=== PATIENT | male | born 1970 | race Caucasian/White ===

== ENCOUNTER → 2020-06-26 07:46 | Outpatient (BNVA) | payer SELFPAY | PROVIDERS: PCP Family Medicine; Visit Provider Internal Medicine | DX: Z02.79 Encounter for issue of other medical certificate (principal) ==

== ENCOUNTER 2021-01-03 20:06 | Emergency (ER) | payer BC, SELFPAY ==
--- NOTE | ~2021-01-03 | CT_ITS ---
EXAMINATION: CT CHEST WITHOUT CONTRAST CLINICAL INFORMATION: Pain. Right-sided ninth rib fracture suspected. COMPARISON: Radiograph 01/03/2021 TECHNIQUE: Multidetector volumetric CT imaging of the chest was done. Axial MIP volume rendering provided. Sagittal and coronal reformatted images were obtained. This CT examination was performed using dose optimization techniques as appropriate, variously including the following: *Automated exposure control *Adjustment of mA and/or kV according to patient size (this includes techniques or standardized protocols for targeted exams where dose is matched to indication/reason for exam; i.e. 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 LUNGS: The central airways are patent. The lungs are clear with no evidence of inflammation or nodules. Fissural lymph node measures 0.9 cm along the right minor fissure on series 5 image 324. No pneumothorax. MEDIASTINUM: Normal heart size. No pericardial effusion. No mediastinal lymphadenopathy. PLEURA: There is no pleural effusion. No pleural mass or thickening. AXILLA: No lymphadenopathy. UPPER ABDOMEN: Unremarkable. OSSEOUS STRUCTURES: There is a nondisplaced posterior lateral right ninth rib fracture. No additional fractures are seen. Vertebral body height and alignment maintained. Small endplate osteophytes noted. CT/CT chest wo IV con IMPRESSION: Nondisplaced posterior lateral right ninth rib fracture.
--- NOTE | ~2021-01-03 | XR_ITS ---
EXAMINATION: XR RIBS, RIGHT CLINICAL INFORMATION: Pain, fall, bruising COMPARISON: 01/11/2018 TECHNIQUE: Single view of the chest and 6 images of the right ribs FINDINGS: Chest film shows no pneumothorax or effusion. Lung weaver are felt to be comparable to previous. Detailed rib films demonstrate mild step-off involving the ninth rib. A fracture would need to be considered. XR/XR ribs RT min 3V w CXR1V IMPRESSION: Step-off involving the right ninth rib on one view only. Fracture needs to be considered on the right here. Otherwise no pneumothorax or effusion in the underlying lung.
[2021-01-03 20:18] VITALS: BP 127/86; PULSE 72; RESP 16; TEMP 36.7; O2SAT 98; BMI 31.6
--- NOTE | 2021-01-03 23:14 | ED.FALL ---
HPI - Fall General Chief Complaint: Fall Stated Complaint: rib inj Time Seen by Provider: 01/03/21 22:54 Source: patient Mode of arrival: ambulatory History of Present Illness HPI Narrative: 50-year-old male presents with complaints of a fall approximately 2 weeks ago where he states he fell backwards without striking his head and went down approximately 7 stairs. He denies any associated loss of consciousness at that time but states that he was coughing earlier today and felt a ?pop on his right side?. He denies any shortness of breath but is having pain over the area of the ?pop? and states that he is also having extensive bruising over his left flank. Related Data Allergies Allergy/AdvReac Type Severity Reaction Status Date / Time No Known Allergies Allergy Verified 01/03/21 20:21 [No Known Allergies*] Review of Systems Review of Systems: Pertinent positives and negatives as stated in HPI 10 point review of systems otherwise negative. [facility] Past Medical History Source: nursing notes reviewed Medical History HTN (hypertension) Pre-diabetes Social History Social History Advance Directives: No Physical Exam Vital Signs: Vital Signs: Last Vital Signs Temp 98.0 F 01/03/21 20:18 Pulse 72 01/03/21 20:18 Resp 16 01/03/21 20:18 BP 127/86 01/03/21 20:18 Pulse Ox 98 01/03/21 20:18 Body Mass Index 31.6 VITAL SIGNS: Reviewed. GENERAL: Well developed, well nourished, in no acute distress. HEAD: Normocephalic/atraumatic, EYES: PERRLA, EOMI LUNGS: Normal breath sounds. No adventitious sounds or accessory muscle use. SpO2<98> right posterior chest wall tenderness without crepitus CARDIOVASCULAR: Regular rate and rhythm without noted murmurs ABDOMEN: Soft, non-tender, non-distended with bowel sounds. RIGHT FLANK: Healing bruising noted distributed along the right iliac crest in various stages of healing SKIN: Inspection of the skin reveals no rashes, ulcerations, jaundice, pallor, or petechiae. NEUROLOGIC: Alert and oriented x 4. Strength and sensation to light touch were grossly intact x 4. Course Course Course Narrative: 50-year-old male with history and clinical presentation consistent with a fall 2 weeks ago and on review of all investigations there are no acute findings other than a nondisplaced posterior lateral right 9th rib fracture. Patient was provided with combination analgesics and a lidocaine patch which on re-evaluation patient states he has had good resolution of his pain is otherwise stable for discharge to home with an incentive spirometer. MDM - Fall Lab Data Result diagrams: 01/03/21 23:41 01/03/21 23:41 Labs: Lab Results 01/03/21 01/03/21 Range/Units 23:41 23:41 WBC 7.7 (4.8-10.8) X10*3/uL RBC 4.67 (4.60-5.80) X10*6/uL Hgb 14.2 (14.0-18.0) g/dl Hct 42.2 (42-52) % MCV 90.4 (80-98) fL MCH 30.4 (27.0-33.0) pg MCHC 33.6 (31.0-36.0) g/dl RDW 13.2 (11.0-16.0) % Plt Count 223 (160-400) X10*3/uL MPV 8.9 L (9.4-12.4) fL Immature Gran % (Auto) 0.1 (0.0-0.4) % Neut % (Auto) 48.3 (45-73) % Lymph % (Auto) 37.5 (20-40) % [place] % (Auto) 11.6 H (2-11) % Eos % (Auto) 1.6 (0-4) % Baso % (Auto) 0.9 (0-2) % Lymph # (Auto) 2.9 (1.2-4.9) X10*3/uL [place] # (Auto) 0.9 (0.1-1.2) X10*3/uL Eos # (Auto) 0.1 (0.0-0.4) X10*3/uL Baso # (Auto) 0.1 (0.0-0.2) X10*3/uL Abs Immat Gran (auto) 0.01 (0.00-0.03) X10*3/uL Absolute Neuts (auto) 3.7 (2.0-8.3) X10*3/uL Absolute Nucleated RBC 0.000 (0.0-0.012) X10*3/uL Nucleated RBC % (auto) 0.0 (0.0-0.2) /100WBC Sodium 139 (135-145) mmol/L Potassium 4.6 (3.3-5.1) mmol/L Chloride 103 (96-108) mmol/L Carbon Dioxide 27 (22-29) mmol/L Anion Gap 14 (12-20) BUN 13 (9-16) mg/dL Creatinine 1.11 (0.5-1.4) mg/dL Estim Creat Clear Calc 100.7 Estimated GFR > 60 Random Glucose 126 H (60-115) mg/dL Calcium 9.6 (8.4-10.2) mg/dL Total Bilirubin 0.5 (0.0-1.0) mg/dL AST 27 (5-37) U/L ALT 31 (0-40) U/L Alkaline Phosphatase 71 (39-117) U/L Total Protein 7.5 (6.5-8.0) g/dL Albumin 4.5 (3.5-5.0) g/dL Discharge Plan Discharge Clinical Impression: Closed rib fracture Patient Disposition: Home, Self-Care Instructions: Rib Fracture (ED), How to Use an Incentive Spirometer (ED) Additional Instructions: 1. Tylenol 1000 mg, orally, every 6 hours as needed for pain control. Do not exceed 4000 mg within 24 hours. 2. Ibuprofen 400 mg, orally with milk or food, every 6 hours as needed for pain control. 3. Lidocaine patch, available [id number], apply to area of maximal tenderness as directed on the outside packaging. 4. Please follow-up with your primary care provider in the next 2-3 days for re-evaluation further outpatient management. Return to the ER for acute worsening of symptoms. Referrals: Irena Alcantar MD [Primary Care Provider] - 2 days (Re-evaluation for right 9th rib fracture.)
[2021-01-03] MEDS: Acetaminophen 325 MG TABLET 975 MG PO (23:31)
[2021-01-03] MEDS: Lidocaine 4 % Patch ADH..PATCH 1 PATCH TRANSDERMA (23:33)
[2021-01-03] MEDS: Ketorolac Tromethamine 15 MG/ML VIAL IM (23:34)
[2021-01-03 23:45] LABS: MANUAL DIFF FLAG NO
[2021-01-03 23:46] LABS: Basophils Absolute Auto 0.1 X10*3/uL (0.0-0.2); Basophils Percent Auto 0.9 % (0-2); Eosinophils Absolute Auto 0.1 X10*3/uL (0.0-0.4); Eosinophils Percent Auto 1.6 % (0-4); Hematocrit 42.2 % (42-52); Hemoglobin 14.2 g/dl (14.0-18.0); Imm Gran Abs Auto 0.01 X10*3/uL (0.00-0.03); Imm Gran Pct Auto 0.1 % (0.0-0.4); Lymphocytes Absolute Auto 2.9 X10*3/uL (1.2-4.9); Lymphocytes Percent Auto 37.5 % (20-40); Mean Corpuscular HGB Conc 33.6 g/dl (31.0-36.0); Mean Corpuscular Hemoglobin 30.4 pg (27.0-33.0); Mean Corpuscular Volume 90.4 fL (80-98); Mean Platelet Volume 8.9 fL (9.4-12.4); Monocytes Absolute Auto 0.9 X10*3/uL (0.1-1.2); Monocytes Percent Auto 11.6 % (2-11); Neutrophils Absolute Auto 3.7 X10*3/uL (2.0-8.3); Neutrophils Percent Auto 48.3 % (45-73); Platelet Count 223 X10*3/uL (160-400); Red Blood Count 4.67 X10*6/uL (4.60-5.80); Red Cell Distribution Width 13.2 % (11.0-16.0); White Blood Count 7.7 X10*3/uL (4.8-10.8)
[2021-01-04 00:17] LABS: Alanine Aminotransferase 31 U/L (0-40); Albumin Level 4.5 g/dL (3.5-5.0); Alkaline Phosphatase 71 U/L (39-117); Anion Gap 14 (12-20); Aspartate Amino Transferase 27 U/L (5-37); Bilirubin Total 0.5 mg/dL (0.0-1.0); Blood Urea Nitrogen 13 mg/dL (9-16); Calcium 9.6 mg/dL (8.4-10.2); Carbon Dioxide 27 mmol/L (22-29); Chloride 103 mmol/L (96-108); Creatinine Clr Calc Pharmacy 100.7; Estimated Glomerular Filt Rate > 60; Glucose Random 126 mg/dL (60-115); Potassium 4.6 mmol/L (3.3-5.1); Sodium 139 mmol/L (135-145); Total Protein 7.5 g/dL (6.5-8.0)
== END 2021-01-04 02:12 | disposition home or self-care (01) ==
PROVIDERS: Emergency Provider Student in an Organized Health Care Education/Training Program; PCP Family Medicine
DX: S30.1XXA Contusion of abdominal wall, initial encounter (principal); S22.31XA Fracture of one rib, right side, initial encounter for closed fracture; I10 Essential (primary) hypertension; W10.8XXA Fall (on) (from) other stairs and steps, initial encounter; Y93.9 Activity, unspecified; Y92.9 Unspecified place or not applicable; Y99.9 Unspecified external cause status
CPT/HCPCS: 36415; 71101; 71250; 80053; 85025; 96372; 99283; 99284; J1885

== ENCOUNTER → 2021-06-19 08:52 | Outpatient (BNVA) | payer SELFPAY | PROVIDERS: PCP Family Medicine; Visit Provider Physician Assistant | DX: Z02.79 Encounter for issue of other medical certificate (principal) ==

== ENCOUNTER 2022-01-08 16:01 | Outpatient (REF) | payer BC, SELFPAY ==
--- NOTE | ~2022-01-08 | CT_ITS ---
EXAMINATION: CT HEAD WITHOUT CONTRAST CLINICAL INFORMATION: Headaches COMPARISON: None TECHNIQUE: Contiguous axial imaging was performed from the skull base to vertex without intravenous administration of contrast. This CT examination was performed using dose optimization techniques as appropriate, variously including the following: *Automated exposure control *Adjustment of mA and/or kV according to patient size (this includes techniques or standardized protocols for targeted exams where dose is matched to indication/reason for exam; i.e. extremities or head) *Use of iterative reconstruction technique DLP: 812 mGy-cm FINDINGS: There is no evidence of acute intracranial hemorrhage or territorial infarction. No abnormal mass effect or midline shift is seen. [place] to white matter differentiation is well preserved. No extra-axial fluid collections are identified. The ventricles are normal in size. There is no abnormal attenuation within the brain parenchyma. The osseous structures and soft tissues are normal. The mastoid air cells and visualized portions of the paranasal sinuses are well aerated. CT/CT head/brain wo IV con IMPRESSION: No acute intracranial process seen.
== END 2022-01-08 16:02 | disposition home or self-care (01) ==
LOC: HO.CT 16:01
PROVIDERS: PCP Family Medicine; Visit Provider Family Medicine
DX: G44.82 Headache associated with sexual activity (principal)
CPT/HCPCS: 70450

== ENCOUNTER 2023-03-26 03:36 | Emergency (ER) | payer MEDICAID, SELFPAY ==
[2023-03-26 03:48] VITALS: BP 200/100; PULSE 103; O2SAT 98; BMI 29.0
[2023-03-26 04:10] VITALS: BP 196/99; PULSE 95; RESP 20; TEMP 37; O2SAT 97
--- NOTE | 2023-03-26 04:10 | PC.NURSE ---
pt cooperative w/ care however refusing all lab draws.
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
--- NOTE | 2023-03-26 06:26 | PC.NURSE ---
pt resting comfortable in stretcher; resps are even and unlabored; no apparent distress; calm and cooperative; continues to refuse all lab draws. rpts does not take any more prescription meds or allow for medical treatment since his earlier this year.
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
[2023-03-26 06:32] VITALS: BP 169/105; PULSE 86; RESP 18; TEMP 36.5; O2SAT 98
--- NOTE | 2023-03-26 06:38 | MHC.EDTECH ---
This tech attempted to draw labs, patient is refusing stated I do not get my blood taken its my right Provider Carly at bedside and patient still refusing. RN Morales made aware. Hourly rounds and vitals completed,BP is elevated 169/105,RN made aware. 1-1 sitter at bedside for safety.
--- NOTE | 2023-03-26 08:00 | PC.NURSE ---
pt verbalized to MD that he will allow staff to draw his blood at this time. PCT lit at bedside to attempt blood draw
[2023-03-26 08:14] LABS: Basophils Percent Auto 0.4 % (0-2); Eosinophils Percent Auto 0.3 % (0-4); Hematocrit 39.8 % (42.0-52.0); Hemoglobin 13.8 g/dl (14.0-18.0); Imm Gran Abs Auto 0.04 X10*3/uL (0.00-0.03); Imm Gran Pct Auto 0.4 % (0.0-0.4); Lymphocytes Absolute Auto 1.5 X10*3/uL (1.2-4.9); Lymphocytes Percent Auto 13.5 % (20-40); MANUAL DIFF FLAG NO; Mean Corpuscular HGB Conc 34.7 g/dl (31.0-36.0); Mean Corpuscular Hemoglobin 29.2 pg (27.0-33.0); Mean Corpuscular Volume 84.3 fL (80.0-98.0); Mean Platelet Volume 9.3 fL (9.4-12.4); Monocytes Percent Auto 9.6 % (2-11); Neutrophils Absolute Auto 8.2 x10*3/uL (2.0-8.3); Neutrophils Percent Auto 75.8 % (45-73); Platelet Count 266 X10*3/uL (160-400); Red Blood Count 4.72 X10*6/uL (4.60-5.80); Red Cell Distribution Width 13.2 % (11.0-16.0); White Blood Count 10.8 X10*3/uL (4.8-10.8)
[2023-03-26 08:21] LABS: Amphetamine Screen Urine Not Detected (Not Detect); Barbiturates, Urine Not Detected (Not Detect); Benzodiazepines Screen Urine Not Detected (Not Detect); Cannabinoid Screen Urine POSITIVE (Not Detect); Cocaine Screen Urine POSITIVE (Not Detect); Fentanyl, urine Not Detected (Not Detect); Opiate Screen Urine Not Detected (Not Detect); Phencyclidine Screen Urine Not Detected (Not Detect)
[2023-03-26 08:25] LABS: Ethanol < 10 mg/dL
[2023-03-26 08:27] LABS: Alanine Aminotransferase 22 U/L (0-40); Albumin Level 4.3 g/dL (3.5-5.0); Alkaline Phosphatase 104 U/L (39-117); Anion Gap 16 (12-20); Aspartate Amino Transferase 35 U/L (5-37); Bilirubin Total 1.5 mg/dL (0.0-1.0); Blood Urea Nitrogen 7 mg/dL (9-16); Calcium 9.6 mg/dL (8.4-10.2); Carbon Dioxide 30 mmol/L (22-29); Chloride 92 mmol/L (96-108); Creatinine Clr Calc Pharmacy 129.5; Estimated Glomerular Filt Rate > 60; Glucose Random 216 mg/dL (60-115); Potassium 2.7 mmol/L (3.3-5.1); Sodium 135 mmol/L (135-145); Total Protein 7.8 g/dL (6.5-8.0)
[2023-03-26 09:53] VITALS: BP 203/119; PULSE 101; RESP 14; O2SAT 99
--- NOTE | 2023-03-26 10:05 | PC.NURSE ---
CARE team at bedside to assess pt
--- NOTE | 2023-03-26 10:10 | MHC.CARE ---
patient denies SI/ HI, appears linear/ goal directed. Patient assessed, does not appear to meet involuntary inpatient LOC. He is requesting referrals, which he is given. Recovery will be down to check in w/ patient about a manager disaster recovery and then patient can be discharged.
--- NOTE | 2023-03-26 10:49 | MHC.RECOVSUP ---
Met with pt in ED10 who is here for psychiatric needs per the request of the care team for resources. Pt informs he used cocaine for the first time in years and woul be open to working with a motor coach supervisor. Resources provided and pt had no other questions or concerns at this time.
== END 2023-03-26 10:50 | disposition left against medical advice (07) ==
PROVIDERS: Registered Nurse Emergency; Emergency Provider Emergency Medicine
DX: F33.1 Major depressive disorder, recurrent, moderate (principal); R45.850 Homicidal ideations; R45.4 Irritability and anger; Z79.899 Other long term (current) drug therapy
CPT/HCPCS: 36415; 80053; 80307; 85025; 99284; 99285; S9485

== ENCOUNTER 2023-03-27 14:12 | Inpatient (IN) | payer MEDICAID, SELFPAY ==
[2023-03-27] VITALS (7 sets, daily range): BP systolic 145–228; BP diastolic 74–145; PULSE 77–96; RESP 15–20; TEMP 36.1–36.8; O2SAT 94–98; BMI 27.0
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
--- NOTE | 2023-03-27 14:33 | ECG_ITS ---
Test Reason : HYPERTENSION Blood Pressure : / mmHG Vent. Rate : 088 BPM Atrial Rate : 088 BPM P-R Int : 142 ms QRS Dur : 098 ms QT Int : 438 ms P-R-T Axes : 010 072 039 degrees QTc Int : 529 ms Normal sinus rhythm RSR' or QR pattern in V1 suggests right ventricular conduction delay Otherwise normal ECG No previous ECGs available Referred By: Staci Ling Electronically Signed By:MARYSOL NASH MD
[2023-03-27] MEDS: Losartan Potassium 50 MG TABLET PO (15:11)
[2023-03-27] MEDS: ondansetron HCL 4 MG/2 ML VIAL IVPUSH (15:11)
[2023-03-27] MEDS: LORazepam 2 MG/ML VIAL IVPUSH (15:11)
[2023-03-27] MEDS: 0.9 % Sodium Chloride 1,000 ML 999 ML IV (15:14)
[2023-03-27 15:38] LABS: Basophils Percent Auto 0.4 % (0-2); Eosinophils Absolute Auto 0.1 X10*3/uL (0.0-0.4); Eosinophils Percent Auto 0.9 % (0-4); Hematocrit 39.9 % (42.0-52.0); Imm Gran Abs Auto 0.03 X10*3/uL (0.00-0.03); Imm Gran Pct Auto 0.4 % (0.0-0.4); Lymphocytes Percent Auto 12.9 % (20-40); MANUAL DIFF FLAG SCAN; Mean Corpuscular HGB Conc 35.1 g/dl (31.0-36.0); Mean Corpuscular Hemoglobin 29.6 pg (27.0-33.0); Mean Corpuscular Volume 84.4 fL (80.0-98.0); Mean Platelet Volume 10.1 fL (9.4-12.4); Monocytes Absolute Auto 0.6 X10*3/uL (0.1-1.2); Neutrophils Absolute Auto 6.1 x10*3/uL (2.0-8.3); Neutrophils Percent Auto 77.4 % (45-73); PLT CLUMP 1; Red Blood Count 4.73 X10*6/uL (4.60-5.80); Red Cell Distribution Width 13.1 % (11.0-16.0); SCAN SMEAR FLAG 1
[2023-03-27 16:04] LABS: COVID-19 Test Negative (Negative); IDNOW Serial# BCCEAD1C
[2023-03-27 16:10] LABS: Platelet Count 248 X10*3/uL (160-400); SLIDE REVIEW VERIFIED; White Blood Count 7.8 X10*3/uL (4.8-10.8)
[2023-03-27 16:21] LABS: Alanine Aminotransferase 35 U/L (0-40); Albumin Level 3.7 g/dL (3.5-5.0); Alkaline Phosphatase 84 U/L (39-117); Anion Gap 14 (12-20); Aspartate Amino Transferase 77 U/L (5-37); Bilirubin Direct 0.5 mg/dL (0.0-0.5); Bilirubin Total 1.1 mg/dL (0.0-1.0); Blood Urea Nitrogen 11 mg/dL (9-16); Calcium 8.6 mg/dL (8.4-10.2); Carbon Dioxide 27 mmol/L (22-29); Chloride 93 mmol/L (96-108); Estimated Glomerular Filt Rate > 60; Ethanol < 10 mg/dL; Glucose Random 248 mg/dL (60-115); Magnesium 1.7 mg/dL (1.6-2.6); Potassium 2.4 mmol/L (3.3-5.1); Sodium 132 mmol/L (135-145); Total Protein 6.6 g/dL (6.5-8.0)
[2023-03-27] MEDS: Potassium Chloride Packet 20 MEQ PACKET 40 MEQ PO (16:44)
[2023-03-27] MEDS: Potassium Chloride/H20 10 MEQ/100 ML PIGGYBACK 100 MEQ IV ×4 (16:50→20:40)
[2023-03-27 17:25] LABS: Amphetamine Screen Urine Not Detected (Not Detect); Barbiturates, Urine Not Detected (Not Detect); Benzodiazepines Screen Urine Not Detected (Not Detect); Cannabinoid Screen Urine POSITIVE (Not Detect); Cocaine Screen Urine POSITIVE (Not Detect); Fentanyl, urine Not Detected (Not Detect); Opiate Screen Urine Not Detected (Not Detect); Phencyclidine Screen Urine Not Detected (Not Detect)
[2023-03-27] MEDS: LORazepam 1 MG TABLET 2 MG PO (17:28)
[2023-03-27] MEDS: HaloperidoL 5 MG TABLET PO (17:28)
--- NOTE | 2023-03-27 17:32 | PC.NURSE ---
Moreno (video surveillance technician) states patient is hallucinating.
--- NOTE | 2023-03-27 18:48 | MHC.EDTECH ---
This Tech took over care of PT at 1900
--- NOTE | 2023-03-27 21:12 | PC.NURSE ---
per dr higgins awaiting final bag of iv potassium to infuse. once infused repeat bloodwork
[2023-03-27] MEDS: Potassium Chloride Packet 20 MEQ PACKET 80 MEQ PO (23:39)
[2023-03-28 00:03] VITALS: BP 180/110; PULSE 84; RESP 20; O2SAT 98
--- NOTE | 2023-03-28 00:22 | PC.NURSE ---
[facility] made this rn aware of bp of 180/110. this rn made dr higgins aware of bp. no new orders placed
[2023-03-28 00:42] LABS: Potassium 3.2 mmol/L (3.3-5.1)
[2023-03-28] MEDS: Propranolol HCL 40 MG TABLET PO ×3 (01:15→14:04)
--- NOTE | 2023-03-28 05:47 | PC.NURSE ---
Patient slept through the night, no distress observed/reported, patient appears confused/requires redirection at time, med rec completed/approved/ medication compliant, propranolol 40 mg administered at 0115, care consult ordered for paranoia, pending evaluation, patient is hypertensive and off his medication for months, behavior non concerning, labs completed/resulted, will continue to monitor
--- NOTE | 2023-03-28 06:53 | PC.NURSE ---
patient appears to remain asleep respirations are even and unlabored patient appears in no distress
[2023-03-28 09:00] VITALS: BP 165/110; PULSE 78; RESP 18; TEMP 36.7; O2SAT 98
[2023-03-28] MEDS: VerapamiL HCL SR 240 MG TABLET.ER PO (09:01)
--- NOTE | 2023-03-28 10:24 | PC.NURSE ---
sammie black friend [phone]
--- NOTE | 2023-03-28 16:15 | P.CONHOSP_ITS ---
History of Present Illness Data of Consult Service Date: 03/28/23 Primary Care Provider: None Physician HPI Reason for consult: Admission H&P Pt is a 53-year-old male with a PMH significant for? who is admitted to psychiatry unit for . Medical consult for admission H&P. ? Labs reviewed, significant for [facility] Medical History Pre-diabetes HTN (hypertension) Social History Alcohol intake: never Smoked in Last 30 Days: No Use of substances other than those prescribed or required for medical reasons: Yes Substance Use Type: Crack/Cocaine and Marijuana Advance Directives: No Advance Directives Information Provided: No Meds Allergies Allergy/AdvReac Type Severity Reaction Status Date / Time No Known Allergies Allergy Verified 03/26/23 03:52 Active Medications: Current Medications Acetaminophen (Acetaminophen 325 Mg Tablet) 650 mg PO Q6H PRN PRN Reason: Headache/Pain Mild Scale (1-3) Al Hydroxide/Mg Hydroxide (Magnesium Hydrox/Alum Hydrox 30 Ml Oral.Susp) 30 ml PO Q6H PRN PRN Reason: Heartburn/Nausea Hydroxyzine HCl (Hydroxyzine Hcl 25 Mg Tablet) 25 mg PO Q6H PRN PRN Reason: Anxiety Magnesium Hydroxide (Milk Of Magnesia 30 Ml Oral.Susp) 30 ml PO DAILY PRN PRN Reason: Constipation Propranolol HCl (Propranolol Hcl 40 Mg Tablet) 40 mg PO TID [facility]; Protocol Last Admin: 03/28/23 14:04 Dose: 40 mg Trazodone HCl (Trazodone Hcl 50 Mg Tablet) 50 mg PO BEDTIME MRX1 PRN PRN Reason: Insomnia Verapamil HCl (Verapamil Hcl Sr 240 Mg Tablet.Er) 240 mg PO DAILY [facility]; Protocol Last Admin: 03/28/23 09:01 Dose: 240 mg Home Medications Medication Instructions Recorded Confirmed Last Taken Type propranolol 40 mg tablet 40 mg PO TID 03/27/23 03/27/23 Unknown History verapamil 240 mg tablet,extended 240 mg PO DAILY 03/27/23 03/27/23 Unknown History release Physical Exam 2 Vital Signs and Narrative: Vital Signs: Last Vital Signs Temp 98.1 F 03/28/23 09:00 Pulse 78 03/28/23 09:00 Resp 18 03/28/23 09:00 BP 165/110 H 03/28/23 09:00 Pulse Ox 98 03/28/23 09:00 O2 Del Method Room Air 03/28/23 09:00 BMI result Body Mass Index 27.0 Results Labs 03/27/23 15:22 03/28/23 00:24 Labs: Laboratory Results - last 24 hr 03/27/23 03/27/23 15:53 17:04 Anion Gap 14 Estim Creat Clear Calc 126.0 Estimated GFR > 60 Random Glucose 248 H Calcium 8.6 D Magnesium 1.7 Total Bilirubin 1.1 H Direct Bilirubin 0.5 AST 77 H ALT 35 Alkaline Phosphatase 84 Total Protein 6.6 Albumin 3.7 Urine Opiates Screen Not Detected Urine Fentanyl Screen Not Detected Ur Barbiturates Screen Not Detected Ur Phencyclidine Scrn Not Detected Ur Amphetamines Screen Not Detected U Benzodiazepines Scrn Not Detected Urine Cocaine Screen POSITIVE H U Marijuana (THC) Screen POSITIVE H Ethyl Alcohol < 10
[2023-03-28 18:00] VITALS: BP 132/87; PULSE 67; TEMP 36.8; O2SAT 96
--- NOTE | 2023-03-29 01:04 | PC.ADMIT ---
Patient is a 49 year old Czech speaking male, admitted as a CV admission to 03/28/23 at 1605 and placed on 15 minute safety checkecks. Patient was medically cleared in the [facility] ED, after his low potassium was treated, evaluated by the CARE team and deemed in need of IPLOC secondary to passive SI, as well as poor insight, judgment and coping. Patient's 6 months ago and he also reported other deaths of family and friends that has affected him. Patient was fairly cooperative during the admission process, but was limited in his information regarding his substance (cocaine) use. Patient said he feels overwhelmed when he is at home and misses his a great deal. Patient presents as hopeless and said he is upset with [facility] d/t not diagnosing his 's cancer in time for her to be treated. Patient denied any current SI. Legals were signed, patient said he was very tired and went to bed. He has no prior psychiatric hospitalizations. Patient said he does not have a current PCP and no therapist. He said he sees a Dr. Rivera (unknown last name) through [facility] and said He's a psychologist, but he prescribes my medications.. Patient also said he does not have any medical insurance and doesn't know why [employer] is listed. Patient said he was very tired and went to sleep without taking his HS medication.
[2023-03-29 07:50] VITALS: BP 199/135; PULSE 79; RESP 18; TEMP 36.2; O2SAT 96
[2023-03-29 08:18] LABS: Alanine Aminotransferase 27 U/L (0-40); Albumin Level 3.8 g/dL (3.5-5.0); Alkaline Phosphatase 87 U/L (39-117); Anion Gap 12 (12-20); Aspartate Amino Transferase 28 U/L (5-37); Bilirubin Total 0.6 mg/dL (0.0-1.0); Blood Urea Nitrogen 11 mg/dL (9-16); Calcium 9.5 mg/dL (8.4-10.2); Carbon Dioxide 30 mmol/L (22-29); Chloride 101 mmol/L (96-108); Cholesterol 156 mg/dL (<200); Creatinine Clr Calc Pharmacy 105.4; Estimated Glomerular Filt Rate > 60; Glucose Fasting 208 mg/dL (60-99); HDL Cholesterol 46 mg/dL (>40); LDL Cholesterol Calculated 89 mg/dL (<100); Potassium 3.6 mmol/L (3.3-5.1); Sodium 139 mmol/L (135-145); Total Protein 7.2 g/dL (6.5-8.0); Triglycerides 106 mg/dL (<150)
--- NOTE | 2023-03-29 08:37 | HO.PSYADMNOT ---
HPI Date of Service: 03/29/23 Chief Complaint: Depression Sources of Information: patient interviewed and chart reviewed HPI Subjective Notes: Conditional Voluntary Healthcare Proxy: No Guardianship: No Medical Problems Affecting Mental Status: No Narrative: 53 year old man who had been doing well until his wfe's in July. Since that time he has been struggling to function. 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 That has been doing well but he continued to struggle with grief. He reports 60 lb weight loss. in the last 6 months. About 6 weeks ago, he relapsed on crack cocaine which he had not used in decades. Since the relapse, he has had increasing sleep disturbance and prior to admission states that he had not slept in 4-5 nights. He was fearful of going out because he was afraid he might get out of control and hurt someone. 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 He was Section 12'd to the emergency room on 03/26 after breaking his living room window and yelling at people. At that time he was denying drug use. He was found to be hyponatremic but refused repletion. He was discharged against medical advice but returned yesterday at the urging of his step-brother. Potassium was repleted and he was admitted on a CV. Past Psychiatric History: Denies suicide attempts, prior admissions, prior psychosis or luz. Had outpatient therapy in past which was helpful. Reports unknown antidepressant trial Medical Evaluation Reviewed: Hospitalist Evaristo Pending Need to make sure that hypokalemia resolves, etiology unknown. BP quite elevated today. Does not have a current PCP. States he now does not trust his PCP because this was the same provider who missed his 's cancer. [facility] Medical History (Updated 03/29/23 @ 09:14 by Marce Caceres MD) Pre-diabetes HTN (hypertension) Family History: none known Social History: Denies abuse or trauma. 9th grade education with GED. 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 One sister who is much younger and step-brother. Has one step-son. Does not get along well with 's family because they all want their grandfather's money. Caregiving for father-in -law. Prior history of A and B back when he was drinking. No recent legal history. Substance History: Alcohol use disorder but not in 20 years. Used AA, no rehab, was in detox. Cocaine addiction over 30 years ago with recent relapse. Used muscle relaxants back when he was drinking. Occasionally uses marijuana Trauma History: of cancer in July about a month after cancer diagnosis. Diagnostics Vital Signs (24Hr): Vital Signs - 24 hr 03/28/23 18:00 03/29/23 07:50 Temperature 98.3 F 97.1 F Pulse Rate 67 79 Respiratory Rate 18 Blood Pressure 132/87 199/135 H Pulse Oximetry 96 96 Oxygen Delivery Method Room Air Room Air BMI result Body Mass Index 27.0 Labs 03/27/23 15:22 03/29/23 07:39 Labs: Laboratory Results - last 48 hr 03/27/23 03/27/23 03/27/23 15:22 15:53 17:04 WBC 7.8 RBC 4.73 Hgb 14.0 Hct 39.9 L MCV 84.4 MCH 29.6 MCHC 35.1 RDW 13.1 Plt Count 248 MPV 10.1 Immature Gran % (Auto) 0.4 Neut % (Auto) 77.4 H Lymph % (Auto) 12.9 L [place] % (Auto) 8.0 Eos % (Auto) 0.9 Baso % (Auto) 0.4 Lymph # (Auto) 1.0 L [place] # (Auto) 0.6 Eos # (Auto) 0.1 Baso # (Auto) 0.0 Abs Immat Gran (auto) 0.03 Absolute Neuts (auto) 6.1 Absolute Nucleated RBC 0.000 Nucleated RBC % (auto) 0.0 Smear Tech's Comments VERIFIED Sodium 132 L Potassium 2.4 L* Chloride 93 L Carbon Dioxide 27 Anion Gap 14 BUN 11 Creatinine 0.77 Estim Creat Clear Calc 126.0 Estimated GFR > 60 Random Glucose 248 H Fasting Glucose Calcium 8.6 D Magnesium 1.7 Total Bilirubin 1.1 H Direct Bilirubin 0.5 AST 77 H ALT 35 Alkaline Phosphatase 84 Total Protein 6.6 Albumin 3.7 Triglycerides Cholesterol LDL Cholesterol, Calc HDL Cholesterol Urine Opiates Screen Not Detected Urine Fentanyl Screen Not Detected Ur Barbiturates Screen Not Detected Ur Phencyclidine Scrn Not Detected Ur Amphetamines Screen Not Detected U Benzodiazepines Scrn Not Detected Urine Cocaine Screen POSITIVE H U Marijuana (THC) Screen POSITIVE H Ethyl Alcohol < 10 COVID-19 ([facility]) Negative COVID-19 [employer] See Note 03/27/23 03/28/23 03/29/23 21:58 00:24 07:39 WBC RBC Hgb Hct MCV MCH MCHC RDW Plt Count MPV Immature Gran % (Auto) Neut % (Auto) Lymph % (Auto) [place] % (Auto) Eos % (Auto) Baso % (Auto) Lymph # (Auto) Teller # (Auto) Eos # (Auto) Baso # (Auto) Abs Immat Gran (auto) Absolute Neuts (auto) Absolute Nucleated RBC Nucleated RBC % (auto) Smear Tech's Comments Sodium 139 Potassium 3.0 L D 3.2 L 3.6 Chloride 101 Carbon Dioxide 30 H Anion Gap 12 BUN 11 Creatinine 0.92 Estim Creat Clear Calc 105.4 Estimated GFR > 60 Random Glucose Fasting Glucose 208 H Calcium 9.5 D Magnesium Total Bilirubin 0.6 Direct Bilirubin AST 28 ALT 27 Alkaline Phosphatase 87 Total Protein 7.2 Albumin 3.8 Triglycerides 106 Cholesterol 156 LDL Cholesterol, Calc 89 HDL Cholesterol 46 Urine Opiates Screen Urine Fentanyl Screen Ur Barbiturates Screen Ur Phencyclidine Scrn Ur Amphetamines Screen U Benzodiazepines Scrn Urine Cocaine Screen U Marijuana (THC) Screen Ethyl Alcohol COVID-19 ([facility]) COVID-19 [employer] Meds/Allergies Meds Home Medications Medication Instructions Recorded Confirmed Type propranolol 40 mg tablet 40 mg PO TID 03/27/23 03/27/23 History verapamil 240 mg tablet,extended 240 mg PO DAILY 03/27/23 03/27/23 History release Allergies Allergies Allergy/AdvReac Type Severity Reaction Status Date / Time No Known Allergies Allergy Verified 03/26/23 03:52 Mental Status Exam Mental Status Exam Patient Appearance: Well Grooomed Patient Orientation: Person, Place, Time and Situation Level of Consciousness: Alert Patient Behavior: Appropriate and Crying Mood Description: Sad Affect Description: Depressed Patient Cognition Impaired: No Ability to Follow Directions: Excellent Speech Pattern: Clear Memory Description: Intact Hallucinations: Visual (These have resolved since cocaine is out of his system) Delusions: Paranoid Ideation (resolving spontaneously) Thought Process: Linear Depressive Symptoms: Insomnia, Increased Irritability, Crying Spells, Significant Weight Loss and Low Self Esteem Judgement: Fair Assessment & Plan Assessment & Plan (1) Major depress dis, severe: Status: Acute Code(s): F32.2 - Major depressive disorder, single episode, severe without psychotic features Assessment and Plan: Bereavement and cocaine use complicating diagnostic picture. Encourage antidepressant trial. Patient declines now. Refer for psychotherapy which he is interested in (2) Cocaine abuse: Status: Acute Code(s): F14.10 - Cocaine abuse, uncomplicated Assessment and Plan: encourage IOP (3) Acute hypokalemia: Status: Acute Code(s): E87.6 - Hypokalemia Assessment and Plan: Monitor potassium, clarify etiology (4) HTN (hypertension): Status: Acute Code(s): I10 - Essential (primary) hypertension Assessment and Plan: continue current regimen of antihypertensives for now. Adjust as needed. Plan as above per problem list Patient educated on: diagnosis, medication risk/benefits, substance abuse, therapeutic strategies and medical condition Reason for continued inpatient stay Substantial Risk for: med/psych decompensation Statement Statement: I have reviewed the history and physical and performed a pertinent examination on my patient. No changes have occurred unless specified. If the History and Physical was not performed prior to admission, the Hospitalist's service will be consulted for completing the admission physical. Time Spent With Patient Time: Total time managing care of this patient today ____ minutes.
[2023-03-29] MEDS: VerapamiL HCL SR 240 MG TABLET.ER PO (08:47)
[2023-03-29] MEDS: Propranolol HCL 40 MG TABLET PO ×3 (08:47→21:47)
[2023-03-29 14:13] VITALS: BP 139/89; PULSE 77
--- NOTE | 2023-03-29 16:54 | PC.NURSE ---
Patient signed a 3 day notice 03/28/23Thursday that is up Thursday04/01/23. Celia Rodriguez notified via telephone message/
[2023-03-29 18:00] VITALS: BP 187/104; PULSE 68; RESP 16; TEMP 36.1; O2SAT 99
[2023-03-29] MEDS: traZODone HCL 50 MG TABLET PO (21:47)
[2023-03-30] MEDS: Propranolol HCL 40 MG TABLET PO ×3 (08:12→21:00)
[2023-03-30] MEDS: VerapamiL HCL SR 240 MG TABLET.ER PO (08:12)
[2023-03-30 08:32] VITALS: BP 191/121; PULSE 72; RESP 16; TEMP 36.4; O2SAT 97
[2023-03-30 10:39] VITALS: BP 196/116; PULSE 78
--- NOTE | 2023-03-30 10:39 | PC.NURSE ---
bp remains elevated. 196/[address] balderas to review and order meds as needed. awaiting return text/call.
[2023-03-30] MEDS: hydrALAZINE HCl 10 MG TABLET PO (11:24)
--- NOTE | 2023-03-30 12:34 | HO.PM.IMCN ---
History of Present Illness Data of Consult Service Date: 03/30/23 Primary Care Provider: None Physician HPI 53 year old male with pre diabetes, HTN previously was on verapamil and propranolol but hasn't taken meds since last July or August because of insurace issues. He is presently admitted to inpatient Psych for treatment of major depression and is noted to have high blood pressures, most recent one is 196/116. He denies chest pain or SOB, no dizziness or headache or visual changes Review of Systems Review of Systems: Gen: no fever Resp: no sob, no cough CV: no chest, no FERNANDEZ, no leg edema GI: No n/v, no abd pain Neuro: No confusion [facility] Medical History Pre-diabetes HTN (hypertension) Social History Household Members: None Housing: House Do you presently have visiting nurse or other home services: No Alcohol intake: never Patient Tobacco Use Status: Former Tobacco user Quit Date: 25 years ago Years Smoked: 20 Smoked in Last 30 Days: No e-Cigarette/Vaping Use: Never Used Patient Interested in Nicotine Replacement: No Patient Given Instructions on How to Stop Smoking: No Second Hand Smoke Exposure: No Use of substances other than those prescribed or required for medical reasons: Yes Substance Use Type: Marijuana and Caffiene Substance Use Frequency: Daily Last Used Substance: Just Prior to Admission Currently Displaying Signs/Symptoms of Drug Intoxication Withdrawal: No Any prior treatment program specific to substance use: No Have you been hit, kicked, punched, or otherwise hurt by someone within the past year? If so, by whom?: No Do you feel safe in your current relationship?: No Current Relationship Is there a partner from a previous relationship who is making you feel unsafe now?: No Are you made to feel afraid or neglected: No Spiritual Healthcare Practices: none Buddhism Healthcare Practices: none Cultural Healthcare Practices: none Advance Directives: No Advance Directives Information Provided: No Do you have thoughts of harming others: None Do you have a plan to hurt others: No Plan Recently lost weight without trying: No Eating poorly because of decreased appetite: No Nutrition Risks: No Nutritional Risk Poor oral hygiene: No Meds Allergies Allergy/AdvReac Type Severity Reaction Status Date / Time No Known Allergies Allergy Verified 03/26/23 03:52 Active Medications: Current Medications Acetaminophen (Acetaminophen 325 Mg Tablet) 650 mg PO Q6H PRN PRN Reason: Headache/Pain Mild Scale (1-3) Al Hydroxide/Mg Hydroxide (Magnesium Hydrox/Alum Hydrox 30 Ml Oral.Susp) 30 ml PO Q6H PRN PRN Reason: Heartburn/Nausea Hydroxyzine HCl (Hydroxyzine Hcl 25 Mg Tablet) 25 mg PO Q6H PRN PRN Reason: Anxiety Magnesium Hydroxide (Milk Of Magnesia 30 Ml Oral.Susp) 30 ml PO DAILY PRN PRN Reason: Constipation Propranolol HCl (Propranolol Hcl 40 Mg Tablet) 40 mg PO TID [facility]; Protocol Last Admin: 03/30/23 08:12 Dose: 40 mg Trazodone HCl (Trazodone Hcl 50 Mg Tablet) 50 mg PO BEDTIME MRX1 PRN PRN Reason: Insomnia Last Admin: 03/29/23 21:47 Dose: 50 mg Verapamil HCl (Verapamil Hcl Sr 240 Mg Tablet.Er) 240 mg PO DAILY [facility]; Protocol Last Admin: 03/30/23 08:12 Dose: 240 mg Home Medications Medication Instructions Recorded Confirmed Last Taken Type propranolol 40 mg tablet 40 mg PO TID 03/27/23 03/27/23 Unknown History verapamil 240 mg tablet,extended 240 mg PO DAILY 03/27/23 03/27/23 Unknown History release Physical Exam Vital Signs and Narrative: Vital Signs: Last Vital Signs Temp 97.5 F 03/30/23 08:32 Pulse 78 03/30/23 10:39 Resp 16 03/30/23 08:32 BP 196/116 H 03/30/23 10:39 Pulse Ox 97 03/30/23 08:32 O2 Del Method Room Air 03/30/23 08:32 BMI result Body Mass Index 27.0 Const: Other: Constitutional: Alert, in no distress, overweight. Mental Status: Oriented to person, place and time. Eyes: Pupils are equal, round and reactive to light. Ear, Nose and Throat: Oropharynx clear, mucous membranes moist. Respiratory: Clear to auscultation. No wheezing, rales or rhonchi. Cardiovascular: S1 S2 regular. No murmurs, rubs or gallops. Gastrointestinal: Abdomen soft, non-tender, non-distended. Normal bowel sounds.? Neurologic: Cranial nerves II-XII grossly intact. No focal neurological deficits. Moves all extremities spontaneously.? Skin: No rashes or lesions.? Musculoskeletal: No cyanosis or clubbing. Psychiatric: Normal mood and affect? Results Labs 03/27/23 15:22 03/29/23 07:39 Assessment and Plan (1) HTN (hypertension): Status: Acute Plan Uncontrolled HTN--no longer meds due to insurance issues. -resume propranolol at 40mg tid -resume verapamil 240 mg daily -adjust meds as needed for optimal control h/o diabetes, in past was on metformin--for now, add SSI, and check hemoglobin A1c
[2023-03-30 13:05] VITALS: BP 201/124
--- NOTE | 2023-03-30 13:10 | P.PNPSI_ITS ---
Subjective Subjective Date of Service: 03/30/23 Reason For Visit: Depression Interim History: Met with patient; discussed with team; reviewed chart Patient reports that he is feeling better. Says that he has been depressed after his after being together for 40 years; felt overwhelmed dealing with all the aftermath. He regrets not taking a hospice up on offer for grief counseling after her and thinks that might have made a big difference for him. Patient reports that in his loneliness he started seeing a woman who reintroduced him to cocaine; for the past several months he has been abusing cocaine regularly. Patient again denies any history at all of luz or manic symptoms; he has never been admitted before and denies ever taking psychotropic medications. However he says he is greatly benefited from seeing his therapist over the years and wants to go back and see this person again. Patient shares that he is embarrassed by his recent behaviors that ended him up in the emergency room and for this admission. He says that is not what he is like at all and that other than this past few months of relapse with cocaine he has been sober for decades. 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 Discussed hypertension and risks for heart attack/stroke especially in the face of cocaine abuse. Patient said he has always had a elevated blood pressure despite medications. He agreed to trial of other medications. Oil Spraying Machine Operator added hydralazine 10mg; after 2 hours no effect and bP elevated further gave another 20mg one time dose (reviewed literature and initial response typically 1 hour, with peak at 2 hours) Mental Status Exam Mental Status Exam Narrative: Pt is alert and oriented; behavior is cooperative, friendly and calm; patient is not in distress; dressed in hospital attire, adequate hygiene; mood is described as good and affect congruent; eye contact appropriate; Speech is normal rate, volume and prosody and not pressured; no psychomotor agitation/retardation present; thought process is organized and goal directed; Thought content is on missing his , getting stable, sober; otherwise pertinent to relevant topics and without any delusional content, paranoid ideations or grandiosity; denies any SI/HI. There is no evidence of perceptual disturbance. Patients insight and judgment appear intact. Diagnostics Vital Signs (24Hr): Vital Signs - 24 hr 03/29/23 14:13 03/29/23 18:00 03/30/23 08:32 Temperature 96.9 F 97.5 F Pulse Rate 77 68 72 Respiratory Rate 16 16 Blood Pressure 139/89 187/104 H 191/121 H Pulse Oximetry 99 97 Oxygen Delivery Method Room Air 03/30/23 10:39 03/30/23 13:05 Temperature Pulse Rate 78 Respiratory Rate Blood Pressure 196/116 H 201/124 H Pulse Oximetry Oxygen Delivery Method BMI result Body Mass Index 27.0 Labs 03/27/23 15:22 03/29/23 07:39 Labs: Laboratory Results - last 48 hr 03/29/23 07:39 Sodium 139 Potassium 3.6 Chloride 101 Carbon Dioxide 30 H Anion Gap 12 BUN 11 Creatinine 0.92 Estim Creat Clear Calc 105.4 Estimated GFR > 60 Fasting Glucose 208 H Calcium 9.5 D Total Bilirubin 0.6 AST 28 ALT 27 Alkaline Phosphatase 87 Total Protein 7.2 Albumin 3.8 Triglycerides 106 Cholesterol 156 LDL Cholesterol, Calc 89 HDL Cholesterol 46 Medications Medications Current Medications Acetaminophen (Acetaminophen 325 Mg Tablet) 650 mg PO Q6H PRN PRN Reason: Headache/Pain Mild Scale (1-3) Al Hydroxide/Mg Hydroxide (Magnesium Hydrox/Alum Hydrox 30 Ml Oral.Susp) 30 ml PO Q6H PRN PRN Reason: Heartburn/Nausea Hydroxyzine HCl (Hydroxyzine Hcl 25 Mg Tablet) 25 mg PO Q6H PRN PRN Reason: Anxiety Magnesium Hydroxide (Milk Of Magnesia 30 Ml Oral.Susp) 30 ml PO DAILY PRN PRN Reason: Constipation Propranolol HCl (Propranolol Hcl 40 Mg Tablet) 40 mg PO TID [place]; Protocol Last Admin: 03/30/23 08:12 Dose: 40 mg Trazodone HCl (Trazodone Hcl 50 Mg Tablet) 50 mg PO BEDTIME MRX1 PRN PRN Reason: Insomnia Last Admin: 03/29/23 21:47 Dose: 50 mg Verapamil HCl (Verapamil Hcl Sr 240 Mg Tablet.Er) 240 mg PO DAILY [place]; Protocol Last Admin: 03/30/23 08:12 Dose: 240 mg Allergies Allergies Allergy/AdvReac Type Severity Reaction Status Date / Time No Known Allergies Allergy Verified 03/26/23 03:52 Assessment & Plan Assessment & Plan (1) HTN (hypertension): Status: Acute Code(s): I10 - Essential (primary) hypertension Plan Hospital course: 03/30 Patient reports that he is feeling better. Says that he has been depressed after his after being together for 40 years; felt overwhelmed dealing with all the aftermath. He regrets not taking a hospice up on offer for grief counseling after her and thinks that might have made a big difference for him. However not very interested in psychotropic medication. Patient reports that in his loneliness he started seeing a woman who reintroduced him to cocaine; for the past several months he has been abusing cocaine regularly. Patient again denies any history at all of luz or manic symptoms; he has never been admitted before and denies ever taking psychotropic medications. However he says he is greatly benefited from seeing his therapist over the years and wants to go back and see this person again. Patient shares that he is embarrassed by his recent behaviors that ended him up in the emergency room and for this admission. He says that is not what he is like at all and that other than this past few months of relapse with cocaine he has been sober for decades. 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 -little irritable on admission; will continue to monitor and if patient remains stable will proceed with discharge -Discussed hypertension and risks for heart attack/stroke especially in the face of cocaine abuse. Patient said he has always had a elevated blood pressure despite medications. He agreed to trial of other medications. Oil Spraying Machine Operator added hydralazine 10mg; after 2 hours no effect and bP elevated further gave another 20mg one time dose (reviewed literature and initial response typically 1 hour, with peak at 2 hours) Plan: 3 day notice Q 15 minute checks Continue propranolol 40 mg t.i.d. Continue verapamil 240 mg daily Adding hydralazine 25 mg t.i.d. since blood pressures remained significantly elevated Placed hospitalist consult to assess antihypertensive medication h/o diabetes, in past was on metformin--for now, add SSI, and check hemoglobin A1c Patient educated on: diagnosis, medication risk/benefits, substance abuse and medical condition Informed Consent: understands Reason for continued inpatient stay Substantial Risk for: rapid decompensation Time Spent With Patient Time: Total time managing care of this patient today ____ minutes.
[2023-03-30 14:16] VITALS: BP 181/111
[2023-03-30] MEDS: hydrALAZINE HCl 10 MG TABLET 20 MG PO (14:31)
[2023-03-30 16:05] VITALS: BP 173/94; PULSE 71; TEMP 36.3
[2023-03-30] MEDS: hydrALAZINE HCl 25 MG TABLET PO (21:01)
[2023-03-30] MEDS: Acetaminophen 325 MG TABLET 650 MG PO (21:02)
[2023-03-31 08:46] VITALS: BP 186/92; PULSE 76; RESP 16; TEMP 36.9; O2SAT 98
[2023-03-31] MEDS: VerapamiL HCL SR 240 MG TABLET.ER PO (08:49)
[2023-03-31] MEDS: Propranolol HCL 40 MG TABLET PO ×2 (08:49→14:31)
[2023-03-31] MEDS: hydrALAZINE HCl 25 MG TABLET PO (08:49)
--- NOTE | 2023-03-31 09:44 | HO.PSYCHPN ---
Subjective Subjective Date of Service: 03/31/23 Reason For Visit: Depression Interim History: met with patient; discussed with team Diagnostics Vital Signs (24Hr): Vital Signs - 24 hr 03/30/23 10:39 03/30/23 13:05 03/30/23 14:16 Temperature Pulse Rate 78 Respiratory Rate Blood Pressure 196/116 H 201/124 H 181/111 H Pulse Oximetry Oxygen Delivery Method 03/30/23 16:05 03/31/23 08:46 Temperature 97.3 F 98.4 F Pulse Rate 71 76 Respiratory Rate 16 Blood Pressure 173/94 H 186/92 H Pulse Oximetry 98 Oxygen Delivery Method Room Air BMI result Body Mass Index 27.0 Labs 03/27/23 15:22 03/29/23 07:39 Medications Medications Current Medications Acetaminophen (Acetaminophen 325 Mg Tablet) 650 mg PO Q6H PRN PRN Reason: Headache/Pain Mild Scale (1-3) Last Admin: 03/30/23 21:02 Dose: 650 mg Al Hydroxide/Mg Hydroxide (Magnesium Hydrox/Alum Hydrox 30 Ml Oral.Susp) 30 ml PO Q6H PRN PRN Reason: Heartburn/Nausea Hydralazine HCl (Hydralazine Hcl 25 Mg Tablet) 25 mg PO TID [place]; Protocol Last Admin: 03/31/23 08:49 Dose: 25 mg Hydroxyzine HCl (Hydroxyzine Hcl 25 Mg Tablet) 25 mg PO Q6H PRN PRN Reason: Anxiety Magnesium Hydroxide (Milk Of Magnesia 30 Ml Oral.Susp) 30 ml PO DAILY PRN PRN Reason: Constipation Propranolol HCl (Propranolol Hcl 40 Mg Tablet) 40 mg PO TID [place]; Protocol Last Admin: 03/31/23 08:49 Dose: 40 mg Sodium Chloride (Sodium Chloride 0.65 % Nasal 44 Ml Sprbtl) 1 spray NOSTRIL-B Q2H PRN PRN Reason: dry nares Trazodone HCl (Trazodone Hcl 50 Mg Tablet) 50 mg PO BEDTIME MRX1 PRN PRN Reason: Insomnia Last Admin: 03/29/23 21:47 Dose: 50 mg Verapamil HCl (Verapamil Hcl Sr 240 Mg Tablet.Er) 240 mg PO DAILY [place]; Protocol Last Admin: 03/31/23 08:49 Dose: 240 mg Allergies Allergies Allergy/AdvReac Type Severity Reaction Status Date / Time No Known Allergies Allergy Verified 03/26/23 03:52 Assessment & Plan Assessment & Plan (1) HTN (hypertension): Status: Acute Code(s): I10 - Essential (primary) hypertension Plan HPI: 53 year old man who had been doing well until his wfe's in July. Since that time he has been struggling to function. 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 That has been doing well but he continued to struggle with grief. He reports 60 lb weight loss. in the last 6 months. About 6 weeks ago, he relapsed on crack cocaine which he had not used in decades. Since the relapse, he has had increasing sleep disturbance and prior to admission states that he had not slept in 4-5 nights. He was fearful of going out because he was afraid he might get out of control and hurt someone. 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 He was Section 12'd to the emergency room on 03/26 after breaking his living room window and yelling at people. At that time he was denying drug use. He was found to be hyponatremic but refused repletion. He was discharged against medical advice but returned yesterday at the urging of his step-brother. Potassium was repleted and he was admitted on a CV. Past Psychiatric History: Denies suicide attempts, prior admissions, prior psychosis or luz. Had outpatient therapy in past which was helpful. Reports unknown antidepressant trial Medical Evaluation Reviewed: Hospitalist Evaristo Pending Need to make sure that hypokalemia resolves, etiology unknown. BP quite elevated today. Does not have a current PCP. States he now does not trust his PCP because this was the same provider who missed his 's cancer. Hospital course: 03/30 Patient reports that he is feeling better. Says that he has been depressed after his after being together for 40 years; felt overwhelmed dealing with all the aftermath. He regrets not taking a hospice up on offer for grief counseling after her and thinks that might have made a big difference for him. However not very interested in psychotropic medication. Patient reports that in his loneliness he started seeing a woman who reintroduced him to cocaine; for the past several months he has been abusing cocaine regularly. Patient again denies any history at all of luz or manic symptoms; he has never been admitted before and denies ever taking psychotropic medications. However he says he is greatly benefited from seeing his therapist over the years and wants to go back and see this person again. Patient shares that he is embarrassed by his recent behaviors that ended him up in the emergency room and for this admission. He says that is not what he is like at all and that other than this past few months of relapse with cocaine he has been sober for decades. 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 -little irritable on admission; will continue to monitor and if patient remains stable will proceed with discharge -Discussed hypertension and risks for heart attack/stroke especially in the face of cocaine abuse. Patient said he has always had a elevated blood pressure despite medications. He agreed to trial of other medications. Seasonal Customer Service Associate added hydralazine 10mg; after 2 hours no effect and bP elevated further; gave another 20mg one time dose (reviewed literature and initial response typically 1 hour, with peak at 2 hours) -hospitalist recommended continue on current regimen for now 03/31 Plan: 3 day notice Q 15 minute checks Continue propranolol 40 mg t.i.d. Continue verapamil 240 mg daily Adding hydralazine 25 mg t.i.d. since blood pressures remained significantly elevated Placed hospitalist consult to assess antihypertensive medication h/o diabetes, in past was on metformin--for now, add SSI, and check hemoglobin A1c Time Spent With Patient Time: Total time managing care of this patient today ____ minutes.
[2023-03-31] MEDS: Acetaminophen 325 MG TABLET 650 MG PO (12:47)
--- NOTE | 2023-03-31 13:05 | PC.NURSE ---
Addendum entered by Angeline Millan RN 03/31/23 13:14: NO new orders given. Will continue to monitor for effectiveness or changes. Original Note: pt reports headache 03/03. BP 186/90. pt reports diagnosed w/ migraines but unsure of medication take for treatment. Tylenol 650mg adminstered, effectiveness pedig. Provider EL notified
[2023-03-31] MEDS: Butalb/Acetamin/Caff 50/325/40 TABLET 1 TAB PO (14:37)
[2023-03-31] MEDS: Acetaminophen 325 MG TABLET PO (14:37)
--- NOTE | 2023-03-31 14:48 | PM.EVENT ---
Event Note Date of Service: 03/31/23 Event Note: The patient was seen and evaluated for elevated BP and headache Started earlier today, now 03/03 with nausea and light sensitivitiy. Report history of headache BP noticed to be elevated at 180s/90s On exam pupils reactive, no focal neurological deficit, neck muscle strain To increase Hydralazine to 50 mg tid give Fiorecit and Ativan CT scan of head ordered , patient refused doing it Will follow clinically Time Spent With Patient Time: Total time managing care of this patient today ____ minutes.
--- NOTE | 2023-03-31 15:13 | P.DS_ITS ---
DS: Providers Provider Date of Service: 03/31/23 Date of admission: 03/28/23 14:34 Date of discharge: 03/31/23 Primary care physician: None Physician Attending physician on admission: Marce Caceres Consults: 03/27/23 20:46 Consult to Care Team Stat Comment: Reason for consultation: paranoia 03/29/23 08:03 Consult to Hospitalist Routine Comment: Consulting Provider: Hospitalist Reason For Exam: admission physical, elevated BP, recent low K 03/30/23 11:05 Consult to Hospitalist Routine Comment: Consulting Provider: Hospitalist Reason For Exam: HTN 03/31/23 13:44 Consult to Hospitalist Routine Comment: Consulting Provider: Jairo Cruz Reason For Exam: 03/03 headache; elevated bp; worsening since AM Attending physician on discharge: Erwin Whittaker DS: Diagnosis Discharge Diagnosis (1) HTN (hypertension): Status: Acute DS: Medications Discharge Medications Home Medications: Previous Rx's Medication Instructions Recorded hydralazine 50 mg tablet 50 mg PO TID 30 days #90 tabs 03/31/23 lisinopril 10 mg tablet 10 mg PO DAILY 30 days #30 tabs 03/31/23 propranolol 40 mg tablet 40 mg PO TID 30 days #90 tabs 03/31/23 verapamil 240 mg tablet,extended 240 mg PO DAILY 30 days #30 tabs 03/31/23 release Mental Status Exam Mental Status Exam Narrative: Pt is alert and oriented; behavior is cooperative, friendly and calm; patient is not in distress; dressed in hospital attire, adequate hygiene; mood is described as good and affect congruent; eye contact appropriate; Speech is normal rate, volume and prosody and not pressured; no psychomotor agitation/retardation present; thought process is organized and goal directed; Thought content is on missing his , getting stable, staying sober; otherwise pertinent to relevant topics and without any delusional content, paranoid ideations or grandiosity; denies any SI/HI. There is no evidence of perceptual disturbance. Patients insight and judgment appear intact. Data Data Completed and Pending Completed studies during hospitalization [Text1]: 03/27/23 03/27/23 03/27/23 15:22 15:53 17:04 WBC 7.8 RBC 4.73 Hgb 14.0 Hct 39.9 L MCV 84.4 MCH 29.6 MCHC 35.1 RDW 13.1 Plt Count 248 MPV 10.1 Immature Gran % (Auto) 0.4 Neut % (Auto) 77.4 H Lymph % (Auto) 12.9 L Livingston % (Auto) 8.0 Eos % (Auto) 0.9 Baso % (Auto) 0.4 Lymph # (Auto) 1.0 L Livingston # (Auto) 0.6 Eos # (Auto) 0.1 Baso # (Auto) 0.0 Abs Immat Gran (auto) 0.03 Absolute Neuts (auto) 6.1 Absolute Nucleated RBC 0.000 Nucleated RBC % (auto) 0.0 Smear Tech's Comments VERIFIED Sodium 132 L Potassium 2.4 L* Chloride 93 L Carbon Dioxide 27 Anion Gap 14 BUN 11 Creatinine 0.77 Estim Creat Clear Calc 126.0 Estimated GFR > 60 Random Glucose 248 H Fasting Glucose Calcium 8.6 D Magnesium 1.7 Total Bilirubin 1.1 H Direct Bilirubin 0.5 AST 77 H ALT 35 Alkaline Phosphatase 84 Total Protein 6.6 Albumin 3.7 Triglycerides Cholesterol LDL Cholesterol, Calc HDL Cholesterol Urine Opiates Screen Not Detected Urine Fentanyl Screen Not Detected Ur Barbiturates Screen Not Detected Ur Phencyclidine Scrn Not Detected Ur Amphetamines Screen Not Detected U Benzodiazepines Scrn Not Detected Urine Cocaine Screen POSITIVE H U Marijuana (THC) Screen POSITIVE H Ethyl Alcohol < 10 COVID-19 ([facility]) Negative COVID-19 Clin Com See Note 03/27/23 03/28/23 03/29/23 21:58 00:24 07:39 WBC RBC Hgb Hct MCV MCH MCHC RDW Plt Count MPV Immature Gran % (Auto) Neut % (Auto) Lymph % (Auto) Livingston % (Auto) Eos % (Auto) Baso % (Auto) Lymph # (Auto) Livingston # (Auto) Eos # (Auto) Baso # (Auto) Abs Immat Gran (auto) Absolute Neuts (auto) Absolute Nucleated RBC Nucleated RBC % (auto) Smear Tech's Comments Sodium 139 Potassium 3.0 L D 3.2 L 3.6 Chloride 101 Carbon Dioxide 30 H Anion Gap 12 BUN 11 Creatinine 0.92 Estim Creat Clear Calc 105.4 Estimated GFR > 60 Random Glucose Fasting Glucose 208 H Calcium 9.5 D Magnesium Total Bilirubin 0.6 Direct Bilirubin AST 28 ALT 27 Alkaline Phosphatase 87 Total Protein 7.2 Albumin 3.8 Triglycerides 106 Cholesterol 156 LDL Cholesterol, Calc 89 HDL Cholesterol 46 Urine Opiates Screen Urine Fentanyl Screen Ur Barbiturates Screen Ur Phencyclidine Scrn Ur Amphetamines Screen U Benzodiazepines Scrn Urine Cocaine Screen U Marijuana (THC) Screen Ethyl Alcohol COVID-19 ([facility]) COVID-19 Clin Com DS: Summary Hospital Course Hospital Course: HPI: 53 year old man who had been doing well until his wfe's in July. Since that time he has been struggling to function. 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 That has been doing well but he continued to struggle with grief. He reports 60 lb weight loss. in the last 6 months. About 6 weeks ago, he relapsed on crack cocaine which he had not used in decades. Since the relapse, he has had increasing sleep disturbance and prior to admission states that he had not slept in 4-5 nights. He was fearful of going out because he was afraid he might get out of control and hurt someone. 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 He was Section 12'd to the emergency room on 03/26 after breaking his living room window and yelling at people. At that time he was denying drug use. He was found to be hyponatremic but refused repletion. He was discharged against medical advice but returned yesterday at the urging of his step-brother. Potassium was repleted and he was admitted on a CV. Past Psychiatric History: Denies suicide attempts, prior admissions, prior psychosis or luz. Had outpatient therapy in past which was helpful. Reports unknown antidepressant trial Medical Evaluation Reviewed: Hospitalist Evaristo Pending Need to make sure that hypokalemia resolves, etiology unknown. BP quite elevated today. Does not have a current PCP. States he now does not trust his PCP because this was the same provider who missed his 's cancer. Hospital course: 03/30 -placed 3 day notice, feeling that he's stable, safe and ready to return to community Patient reports that he is feeling better. Says that he has been depressed after his after being together for 40 years; felt overwhelmed dealing with all the aftermath. He regrets not taking a hospice up on offer for grief counseling after her and thinks that might have made a big difference for him. Patient reports that in his loneliness he started seeing a woman who reintroduced him to cocaine; for the past several months he has been abusing c ocaine regularly. Patient again denies any history at all of luz or manic symptoms; he has never been admitted before and denies ever taking psychotropic medications. However he says he is greatly benefited from seeing his therapist over the years and wants to go back and see this person again. Patient shares that he is embarrassed by his recent behaviors that ended him up in the emergency room and for this admission. He says that is not what he is like at all and that other than this past few months of relapse with cocaine he has been sober for decades. 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 -Discussed hypertension and risks for heart attack/stroke especially in the face of cocaine abuse. Patient said he has always had a elevated blood pressure despite medications. He agreed to trial of other medications. Continue propranolol 40 mg t.i.d. Continue verapamil 240 mg daily added hydralazine 25 mg t.i.d. since blood pressures remained significantly elevated; however, 3 day coming due and pt wants to discharge. Says will follow up on his own when he gets new PCP. Patient soon stabilized. He remained in good mood, demonstrating good behavioral and impulse control throughout his time in the unit; he was polite and appropriate with both peers and staff. Patient felt he was getting back to his regular self, safe and wanted to discharge back to the community. While he remains vulnerable for relapse and decompensation, he is not in imminent risk for harm to self or others and request for discharge honored. Time spent discussing smoking cessation with patient: 3 to 10 minutes Status at Discharge Functional status at discharge: independent ambulation Overall status at discharge: patient is back to baseline Time Spent with Patient Time attestation: Total time managing care of this patient today ____ minutes. Time spent: Less than 30 minutes Discharge Plan Discharge Anticipated Discharge Date/Time: 03/31/23 18:00 Patient Disposition: Home, Self-Care Discharge Diagnosis: Mdd, moderate, recurrent, in partial remission Referrals: Physician,None [Primary Care Provider] - 1 Week Discharge Medications: New hydralazine 50 mg Tablet 50 mg PO TID 30 Days Qty: 90 0RF Protocol: Hold for SBP< HOLD for SBP < : 90 lisinopril 10 mg Tablet 10 mg PO DAILY 30 Days Qty: 30 0RF Protocol: Hold for SBP< HOLD for SBP < : 90 Continued propranolol 40 mg tablet 40 mg PO TID 30 Days Qty: 90 0RF verapamil 240 mg tablet extended release 240 mg PO DAILY 30 Days Qty: 30 0RF Discharge Orders: Discharge Order (Routine); Ordered 03/31/23 Ordered By: Erwin Whittaker Diet: Regular diet Activity on Discharge: As tolerated Stand Alone Forms: Patient Portal Discharge page Care Plan Goals: Maintain mood and safe behaviors Take medications as prescribed Continue to pursue sobriety Practice coping skills Continue with outpatient providers and reach out to them as needed Health Concerns: Mood stability and behaviors Sobriety Hypertension Plan of Treatment: Follow up with your PCP, psychiatric provider and other outpatient providers regarding above concerns Take medications as prescribed Assessment: Risk assessment at time of discharge:? Patient was interviewed prior to discharge and found to be fully oriented and without any SI or HI. Patient has improved insight and judgment and wants to continue treatment. Patient is not in imminent risk of harm to self or others and has a safety plan that includes presenting to the closest ER or calling 911 if feeling unsafe.? Patient has been observed closely by nursing and unit staff throughout admission; patient has not engaged in any behaviors that suggest dangerousness to self or others and has demonstrated appropriate behaviors and impulse control Discharge Date/Time: 03/31/23 18:05
[2023-03-31 15:45] VITALS: BP 167/87; PULSE 58; TEMP 36.2
[2023-03-31] MEDS: hydrALAZINE HCl 50 MG TABLET PO (15:49)
[2023-03-31] MEDS: LORazepam 0.5 MG TABLET PO (15:49)
[2023-03-31] MEDS: Cyclobenzaprine HCl 5 MG TABLET PO (15:50)
== END 2023-03-31 18:05 | disposition home or self-care (01) | DRG 751 ==
LOC: HO.ED 23:15 → HO.PM5 03-28 14:40
PROVIDERS: Emergency Medicine; Admitting Provider Psychiatry & Neurology Psychiatry; Emergency Provider Emergency Medicine; Visit Provider Psychiatry & Neurology Psychiatry
DX: F33.1 Major depressive disorder, recurrent, moderate (principal); R45.851 Suicidal ideations; Z91.148 Patient's other noncompliance with medication regimen for other reason; E87.6 Hypokalemia; R73.03 Prediabetes; F14.10 Cocaine abuse, uncomplicated; I10 Essential (primary) hypertension; Z63.4 Disappearance and death of family member; Z20.822 Contact with and (suspected) exposure to COVID-19; Z87.891 Personal history of nicotine dependence; Z79.899 Other long term (current) drug therapy
CPT/HCPCS: 36415; 80048; 80053; 80061; 80076; 80307; 83735; 84132; 85025; 87635; 93005; 99285; J2060; J2405; S9485

== ENCOUNTER → 2023-03-28 14:34 | Outpatient (BNV) | payer MEDICAID, SELFPAY | PROVIDERS: Admitting Provider Psychiatry & Neurology Psychiatry; Emergency Provider Emergency Medicine; Visit Provider Internal Medicine | DX: I10 Essential (primary) hypertension (principal) | CPT/HCPCS: 99222; 99499 ==

== ENCOUNTER → 2023-03-28 14:34 | Outpatient (BNV) | payer MEDICAID, SELFPAY | PROVIDERS: Admitting Provider Psychiatry & Neurology Psychiatry; Emergency Provider Emergency Medicine; Visit Provider Psychiatry & Neurology Psychiatry | DX: F32.2 Major depressive disorder, single episode, severe without psychotic features (principal); F14.10 Cocaine abuse, uncomplicated; I10 Essential (primary) hypertension | CPT/HCPCS: 99232; 99238 ==

== ENCOUNTER 2023-06-03 14:52 | Emergency (ER) | payer OTHER, SELFPAY ==
[2023-06-03 14:59] VITALS: BP 228/150; PULSE 97; RESP 18; TEMP 36.9; O2SAT 100; BMI 31.1
--- NOTE | 2023-06-03 15:04 | ED_ITS ---
HPI - Wound/Laceration General Chief Complaint: Wound/Laceration Stated Complaint: Laceration on hand Time Seen by Provider: 06/03/23 15:05 Source: patient, RN notes reviewed and old records reviewed Mode of arrival: ambulatory History of Present Illness HPI narrative: 53yo M w/PMHx HTN, Pre-DM, MDD, c/o laceration to left hand S/P accidentally tripping and hand landing on metal cart [employer] while trying to catch himself. denies head trauma/LOC, numbness/tingling, injury to the area. Tetanus up-to-date. reports noncompliance w/home meds due to insurance issues Onset (ago): hour(s) Related Data Previous Rx's Medication Instructions Recorded hydralazine 50 mg tablet 50 mg PO TID 30 days #90 tabs 03/31/23 lisinopril 10 mg tablet 10 mg PO DAILY 30 days #30 tabs 03/31/23 propranolol 40 mg tablet 40 mg PO TID 30 days #90 tabs 03/31/23 verapamil 240 mg tablet,extended 240 mg PO DAILY 30 days #30 tabs 03/31/23 release Allergies Allergy/AdvReac Type Severity Reaction Status Date / Time No Known Allergies Allergy Verified 03/26/23 03:52 Review of Systems Review of Systems: Constitutional: No Fever, No Chills ENT/Mouth: No Ear Pain, No Nasal Congestion, No sore throat, No Rhinorrhea, No Swallowing Difficulty Cardiovascular: No Chest Pain, No SOB Respiratory: No Cough, No Sputum, No Wheezing Musculoskeletal: No joint pain, No Myalgias, No Joint Swelling Skin: + Skin Lesions, No rash Neuro: No Weakness, No Numbness, No Paresthesias Yes all other systems are reviewed and are negative Constitutional: Constitutional: Reports as per HPI [facility] Past Medical History Attestation statement: The following information was validated with the patient. Source: old records reviewed Onset Date is defined in the Problem List Problems that require an onset date and time if occurred within 24 hrs of arr ival to the ED Aortic Dissection and Rupture; Neurologic impairment; Cardiopulmonary Arrest; Endotracheal Intubation; Insertion or Replacement of Mechanical Circulatory Assi st Device Medical History MDD (major depressive disorder), recurrent episode, moderate Pre-diabetes HTN (hypertension) Social History Social History Household Members: None Housing: House Do you presently have visiting nurse or other home services: No Alcohol intake: never Patient Tobacco Use Status: Former Tobacco user Quit Date: 25 years ago Years Smoked: 20 e-Cigarette/Vaping Use: Never Used Second Hand Smoke Exposure: No Substance Use Type: Marijuana and Caffiene service: No Sexual orientation: Straight/Heterosexual Physical Exam Vital Signs: Vital Signs: Last Vital Signs Temp 98.4 F 06/03/23 14:59 Pulse 97 06/03/23 14:59 Resp 18 06/03/23 14:59 BP 239/142 H 06/03/23 15:25 Pulse Ox 100 06/03/23 14:59 O2 Del Method Room Air 06/03/23 14:59 BMI result Body Mass Index 31.1 Const: General: cooperative, healthy appearing and no acute distress Orientation/consciousness: patient oriented x3 Limitations: no limitations HEENT: Head: Yes normal to inspection and Yes atraumatic Ears: hearing grossly normal bilaterally General nose exam: Normal external nose present Face and sinus: Yes normal facial exam Eyes: General: appearance normal, both eyes and all related structures EOM: EOMs intact bilaterally Neck: Neck: Yes normal visual inspection and Yes no meningeal signs Resp: Effort & Inspection: normal respiratory effort and no respiratory distress Cardio: Rate: regular rate Skin: Other: +2.5cm jagged/ V-shaped laceration noted to palmar aspect between 3rd and 4th digit. FROM digits intact. NV intact Rashes: no rashes Neuro: General: patient oriented x3, tone normal and no meningeal signs Cranial nerves: Yes CN's II-XII intact bilaterally Gait exam (Neuro): Normal gait present Extrem: General: Yes normal to inspection Course Course Course Narrative: -wound sutured in the ED > repeat blood pressure still very elevated. Plan was to order & give patient home medications however he refused, states he will not take anything, also offered to give a new medication due to undesirable side effects however patient is still not interested /refusing. Patient states recently lost his and is not interested in any medication. Discussed risk of stroke and ACS at length, he verbalized understanding > case also discussed with Dr. Chandler. Results discussed with patient including worrisome signs and symptoms and strict return precautions, and when to return to the emergency department. They verbalized understanding and feel safe for discharge at this time. Medical Decision Making Medical Decision Making MDM Narrative: 53yo M w/PMHx HTN, Pre-DM, MDD, c/o laceration to left hand S/P accidentally tripping and hand landing on metal cart [employer] while trying to catch himself. On exam hypertensive, reports noncompliance with home meds for awhile due to insurance issues and side effect of headaches from medications. PE as above with noted laceration to palmar aspect of left hand. Underlying structures appear intact. Bleeding controlled. Low suspicion for fracture Plan: repair wound Please refer to course for remaining clinical decision making, interpretation of labs/imaging results, and discussions with consultants and/or family members. Differential Diagnosis Differential Diagnoses: The differential diagnosis associated with the presentation includes As above External Record Review External record reviewed: Inpatient record, Office record, Outpatient record, Prior outpatient labs, Prior outpatient radiology, Primary care record and Outside ED record Tests considered The following testing was considered but not selected: As above Prescription Management I considered prescription management with: Pain Medication and Antibiotic Procedures Laceration Laceration 1: Site: hand Side (If applicable): left Size (cm): 2.5 Description: linear and flap Depth: simple, single layer Local Anesthetic: lidocaine 1% Amount of anesthesia used (mL): 3 Pre-repair: wound explored, irrigated extensively and deep structures intact Skin layer closed with: nylon Size (cm): 4-0 Number of sutures: 5 Technique: simple, interrupted Discharge Plan Discharge Clinical Impression: Hand laceration, HTN (hypertension) Patient Disposition: Home, Self-Care Instructions: Laceration (DC), Chronic Hypertension (DC) Additional Instructions: YOUR BLOOD PRESSURE IS TOO HIGH YOU SHOULD REALLY BE TAKING BLOOD PRESSURE MEDICATIONS THIS PUTS YOU AT HIGH RISK OF STROKE AND HEART ATTACK SEE YOUR DOCTOR Your wounds were repaired today in the emergency department. Keep dry and clean. You need to return to any emergency department, urgent care, or your PCPs office in 7-10 days for suture removal Apply bacitracin and or Neosporin daily Once sutures are removed apply anti scar cream like Mederma If area begins look infected, is red, there is drainage, streaking, or you have fever please return to the emergency department Prescriptions: No Action hydralazine 50 mg Tablet 50 mg PO TID 30 Days Qty: 90 0RF Protocol: Hold for SBP< HOLD for SBP < : 90 lisinopril 10 mg Tablet 10 mg PO DAILY 30 Days Qty: 30 0RF Protocol: Hold for SBP< HOLD for SBP < : 90 propranolol 40 mg tablet 40 mg PO TID 30 Days Qty: 90 0RF verapamil 240 mg tablet extended release 240 mg PO DAILY 30 Days Qty: 30 0RF Referrals: Physician,Unknown J [Physician] - 1 week Discharge Date/Time: 06/03/23 15:42
[2023-06-03 15:25] VITALS: BP 239/142
== END 2023-06-03 15:42 | disposition home or self-care (01) ==
PROVIDERS: Emergency Provider Emergency Medicine
DX: S61.411A Laceration without foreign body of right hand, initial encounter (principal); W22.8XXA Striking against or struck by other objects, initial encounter; I10 Essential (primary) hypertension; Y93.9 Activity, unspecified; Y92.9 Unspecified place or not applicable; Y99.9 Unspecified external cause status
CPT/HCPCS: 12001; 99282; 99284

== ENCOUNTER 2023-10-22 11:58 | Outpatient (AMB) | payer OTHER, SELFPAY ==
--- NOTE | 2023-10-22 12:02 | MHC.PC.OV ---
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 Went without all medications for a year until he went to ER. Currently since his ER visit he has been out of medications for a month. Uncertain on what medications he should be on. There is also Atorvastatin 10mg in pharmacy records he is unsure of. Allergies No Known Allergies Allergy (Verified 10/22/23 12:21) Medication List - Last Reconciled 10/22/23 by Fiorella Dior, PIE BAKER- blood sugar diagnostic (Accu-Chek Mari Plus test strips) As directed lisinopril 10 mg See Protocol PO DAILY 30 days metformin ER 500 mg PO DAILY propranolol 40 mg PO TID 30 days verapamil ER 240 mg PO DAILY 30 days Tobacco use date assessed: 10/22/23 Dental Screening Dental Screen Date: 10/22/23 Did you have a dental visit in the last 12 months?: No Did you have a dental problem in the last 6 months where you did not have access to dental care?: No Was dental information given to patient?: No (going to [facility]) HPI HPI Comments History of Present Illness Details 53-year-old male with polysubstance abuse (EtOH, marijuana, cocaine), DM2, hypertension, alcohol use disorder in remission, former smoker, headaches, microalbuminuria Several detox admissions, inpatient psych admission 04/13/2023 at [facility] for acute anxiety, decompensated depression with paranoia via section 12 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 of Cancer in 2022. Surgery - 97 green to chest Health Maintenance: Colon - declines. PSA - has never had screened. Specialists: None Here today to est care Has been w/o meds for months HgA1c 14% done in office today HTN denies neuro or cardiac complaints Labs today show random glucose > 400, + urine microalbumin, normal renal function and lytes. LDL TSH and Vit D pending [facility] Medical History MDD (major depressive disorder), recurrent episode, moderate Pre-diabetes HTN (hypertension) Social History (Updated 10/22/23 @ 12:23 by Danyell Salazar [facility]) Household Members: None Housing: House Do you presently have visiting nurse or other home services: No Alcohol intake: never Patient Tobacco Use Status: Former Tobacco user Years Smoked: 20 e-Cigarette/Vaping Use: Never Used Second Hand Smoke Exposure: No Substance Use Type: Marijuana and Caffiene service: No Current occupational status: employed (self employeed ) Current occupation: [employer] Current occupational exposures/hazards: No Sexual orientation: Straight/Heterosexual Cognitive needs: No Hearing needs: No Vision needs: No Questionnaire PHQ-9 Over the last 2 weeks, how often have you been bothered by any of the following problems? 1. Little interest or pleasure in doing things: not at all 2. Feeling down, depressed, or hopeless: not at all 3. Trouble falling or staying asleep, or sleeping too much: several days 4. Feeling tired or having little energy: not at all 5. Poor appetite or overeating: not at all 6. Feeling bad about yourself - or that you are a failure or have let yourself or your family down: not at all 7. Trouble concentrating on things, such as reading the newspaper or watching television: not at all 8. Moving or speaking so slowly that other people could have noticed. Or the opposite - being so fidgety or restless that you have been moving around a lot more than usual: not at all 9. Thoughts that you would be better off or of hurting yourself in some way: not at all Total score: 1 Depression Screening Interpretation: Negative Depression Screening Done: Yes 43525 - PHQ-9 Billing: Yes Source: Developed by Drs. Curt Abreu, Yanni Gregg, Anirudh Millan and colleagues, with an educational amado from [employer]. Thrive Questionnaire Date Thrive assessed: 04/01/23 I am a: Patient What is your living situation today?: I have a steady place to live Within the past 12 months, did the food you bought not last and you didn't have the money to get more?: Never true Within the past 12 months, did you worry whether your food would run out before you got money to buy more?: Never true Do you have trouble paying for medicines?: No Do you have trouble getting transportation to medical appointments?: No Do you have trouble paying your heating and electricity bill?: No Do you have trouble taking care of your child, family member or friend?: No Do you have trouble with day-to-day activities such as bathing, preparing meals, shopping, managing finances, etc.?: No Are you currently unemployed and looking for a job?: No Are you interested in more education?: No Please select the resources that you would like help with: None Currently or been in a relationship where the following occur: no concerns reported THRIVE Score: 0 AUDIT C Alcohol Use Questionnaire (AUDIT-C) 1. How often do you have a drink containing alcohol?: Never 3. How often do you have six or more drinks on one occasion?: Never Total Score: 0 Score Reviewed/Action Taken: Yes HENRY-7 AMB Questionnaire HENRY-7 Date HENRY - 7 assessed: 10/22/23 Feeling nervous, anxious, or on edge: 0 = Not at all Not being able to stop or control worryin = Not at all Worrying too much about different things: 0 = Not at all Trouble relaxin = Not at all Being so restless that it is hard to sit still: 0 = Not at all Becoming easily annoyed or irritable: 0 = Not at all Feeling afraid as if something awful might happen: 0 = Not at all Total HENRY-7 score (0-4 normal; 5-9 mild; 10-14 moderate; 15-21 severe): 0 Source: Developed by Drs. Curt Abreu, Yanni Gregg, Anirudh Millan and colleagues, with an educational amado from [employer]. HENRY-7 Assessment Billing HENRY-7 Assessment Tool: HENRY-7 Assessment 06676 Review of Systems Const All systems reviewed & are unremarkable except as noted in HPI and below Physical exam (Primary Care) Vital Signs: Last Vital Signs Temp 99.1 F 10/22/23 12:12 Pulse 95 10/22/23 12:12 Resp 14 10/22/23 12:12 BP 202/120 H 10/22/23 12:19 Pulse Ox 94 10/22/23 12:12 Oxygen Delivery Method Room Air 10/22/23 12:12 Care Plan Goal for BP management: start new meds,bring back to office for rechk in 2 weeks Next steps: see above BMI result Body Mass Index 31.4 BMI Assessment/Plan discussion: High BMI High, discussed plan: lifestyle Tobacco/Smoking Status: Tobacco use Status Tobacco use date assessed 10/22/23 10/22/23 12:15 Patient Tobacco Use Status Former Tobacco user 10/22/23 12:23 e-Cigarette/Vaping Use Never Used 10/22/23 12:23 PHQ-9: PHQ-9 Score PHQ-9: Total score 1 10/22/23 12:24 Depression Screening Interpretation: Negative Thrive Assessment: Date of Thrive Assessment Date Thrive assessed 04/01/23 10/22/23 12:07 Currently or been in a relationship where the following occur: no concerns reported Advance Care Planning discussion: Exists, not on file Date of discussion: 10/22/23 Who was present: self Forms completed: Health Care Proxy Time spent: 1-15 minutes, not on file Actual minutes spent: 2 Const Other: awake alert appears older than stated age PERRLA, EOMI MMM RRR LS dim throughout BLE with trace pedal edema, hairless, + PP bilat, skin intact Mood and affect appropriate Results AMB Hemoglobin A1c AMB Hemoglobin A1c 14 % Last Edit by Danyell Salazar CMA on 10/22/23 12:18 Results Reviewed Results Reviewed: Laboratory Last Values Hgb A1c (Clinic) 14 % (4.0-6.0) H 10/22/23 12:17 Assessment and Plan Assessment & Plan (1) DM type 2 causing complication: Comment: hga1c 14% today START Synjardy XR 1000mg/12.5 mg 2 tabs po QM Code(s): E11.8 - Type 2 diabetes mellitus with unspecified complications (2) HTN (hypertension): Comment: Start Lisinopril/HCTZ 20mg/25mg 1 tab po BID Code(s): I10 - Essential (primary) hypertension Qualifiers: Hypertension type: secondary to endocrine disorders Qualified Code(s): I15.2 - Hypertension secondary to endocrine disorders (3) Cocaine abuse: Comment: in remission, per report. Code(s): F14.10 - Cocaine abuse, uncomplicated (4) MDD (major depressive disorder), recurrent episode, moderate: Comment: active, not on meds, no counselor. Code(s): F33.1 - Major depressive disorder, recurrent, moderate (5) Microalbuminuria due to type 2 diabetes mellitus: Comment: start ACEI today Code(s): E11.29 - Type 2 diabetes mellitus with other diabetic kidney complication; R80.9 - Proteinuria, unspecified (6) PVD (peripheral vascular disease): Comment: based on clinical exam optimize BP and A1c Start Statin at next ov, LDL pending. Code(s): I73.9 - Peripheral vascular disease, unspecified (7) BMI 31.0-31.9,adult: Comment: life style mods encouraged Code(s): Z68.31 - Body mass index [BMI] 31.0-31.9, adult Plan: 50 min was spent caring for this patient, this includes time before during and after visit. Orders: Orders AMB Hemoglobin A1c Today E11.9 - Type 2 diabetes mellitus without complications LDL Cholesterol Direct Today E11.8 - Type 2 diabetes mellitus with unspecified complications, I10 - Essential (primary) hypertension Microalbumin, Random (w Creat) Today E11.8 - Type 2 diabetes mellitus with unspecified complications, I10 - Essential (primary) hypertension Vitamin D 1,25 dihydroxy Today E11.8 - Type 2 diabetes mellitus with unspecified complications, I10 - Essential (primary) hypertension Comprehensive Met. Panel Today E11.8 - Type 2 diabetes mellitus with unspecified complications, I10 - Essential (primary) hypertension TSH reflex Free T4 Today E11.8 - Type 2 diabetes mellitus with unspecified complications, I10 - Essential (primary) hypertension PSA, Ultra Sensitive Today E11.8 - Type 2 diabetes mellitus with unspecified complications, I10 - Essential (primary) hypertension Vitamin B12 and Folate Today E11.8 - Type 2 diabetes mellitus with unspecified complications Referrals Ophthalmology Referral E11.8 - Type 2 diabetes mellitus with unspecified complications, I10 - Essential (primary) hypertension Medications: New lisinopril-hydrochlorothiazide 20-25 mg 1 tab PO BID 60 tabs 0RF empagliflozin-metformin 12.5-1,000 mg ER (Synjardy XR) 2 tabs (2 x 12.5-1,000 mg) PO DAILY 60 ea 0RF Discontinued hydralazine Discontinued Reason: Patient no longer taking 50 mg See Protocol PO TID 30 days 90 tabs 0RF lisinopril Discontinued Reason: Doctor's Order 10 mg See Protocol PO DAILY 30 days 30 tabs 0RF On Hold propranolol Hold Comment: re-eval at next OV 40 mg PO TID 30 days 90 tabs 0RF verapamil ER Hold Comment: re-eval at next OV 240 mg PO DAILY 30 days 30 tabs 0RF Patient Instructions: Take meds as directed RTO in 2 weeks to recheck BP, med compliance and review labs Review Patient declined Colonoscopy: 10/22/23 Patient declined Colon Cancer Screen Lab: 10/22/23 Patient declined Pneumococcal Vaccine: 10/22/23 Declined TDap/Td: 10/22/23 Coding Level of Care Code New Pt Level 5 (16568) Diagnoses DM type 2 causing complication E11.8 Hypertension due to endocrine disorder I15.2 Hypertension type: secondary to endocrine disorders Cocaine abuse F14.10 MDD (major depressive disorder), recurrent episode, moderate F33.1 Microalbuminuria due to type 2 diabetes mellitus E11.29; R80.9 PVD (peripheral vascular disease) I73.9 BMI 31.0-31.9,adult Z68.31 Additional Codes HENRY-7 Assessment Billing - HENRY-7 Assessment Tool: HENRY-7 Assessment 41954 ([id number]) Vital Signs *Quality* - Advance Care Planning discussion: Exists, not on file ([id number]) Vital Signs *Quality* - Time spent: 1-15 minutes, not on file ([id number])
[2023-10-22 12:12] VITALS: BP 239/129; PULSE 95; RESP 14; TEMP 37.3; O2SAT 94; BMI 31.4
[2023-10-22 12:19] VITALS: BP 202/120
== END 2023-10-22 12:45 | disposition home or self-care (01) ==
PROVIDERS: PCP Nurse Practitioner Family; Visit Provider Nurse Practitioner Family
DX: E11.29 Type 2 diabetes mellitus with other diabetic kidney complication (principal); F14.10 Cocaine abuse, uncomplicated; F33.1 Major depressive disorder, recurrent, moderate; I73.9 Peripheral vascular disease, unspecified; Z00.00 Encounter for general adult medical examination without abnormal findings; I15.2 Hypertension secondary to endocrine disorders; R80.9 Proteinuria, unspecified; Z68.31 Body mass index [BMI] 31.0-31.9, adult
CPT/HCPCS: 1123F; 83036; 99205

== ENCOUNTER 2023-10-22 12:36 | Outpatient (REF) | payer OTHER, SELFPAY ==
[2023-10-22 15:23] LABS: Creatinine Urine 25.47 mg/dL
[2023-10-22 15:32] LABS: Alanine Aminotransferase 32 U/L (0-40); Albumin Level 4.2 g/dL (3.5-5.0); Alkaline Phosphatase 95 U/L (39-117); Anion Gap 15 (12-20); Aspartate Amino Transferase 26 U/L (5-37); Bilirubin Total 0.4 mg/dL (0.0-1.0); Blood Urea Nitrogen 13 mg/dL (9-16); Calcium 9.9 mg/dL (8.4-10.2); Carbon Dioxide 26 mmol/L (22-29); Chloride 98 mmol/L (96-108); Estimated Glomerular Filt Rate > 60; Glucose Random 485 mg/dL (60-115); Potassium 3.6 mmol/L (3.3-5.1); Sodium 135 mmol/L (135-145); Total Protein 7.9 g/dL (6.5-8.0)
[2023-10-22 15:42] LABS: TSH reflex Free T4 4.38 uIU/mL (0.32-4.0)
[2023-10-22 15:48] LABS: Folate 9.7 ng/mL (> or = 4.0); Vitamin B12 578 pg/mL (200-900)
[2023-10-22 16:14] LABS: Free T4 (Free Thyroxine) 0.89 ng/dL (0.71-1.85)
[2023-11-04 11:33] LABS: Vit D (1,25-Dihydroxy) Total 38
[2023-11-04 11:34] LABS: VITAMIN D (1,25 OH) D3 38; Vitamin D (1,25 OH) D2 <8
[2023-11-04 11:36] LABS: LDL Cholesterol Direct 134; PSA, Ultra Sensitive 0.58
== END 2023-10-22 12:37 | disposition home or self-care (01) ==
LOC: HO.WFDLDS 12:36
PROVIDERS: Visit Provider Nurse Practitioner Family
DX: E11.8 Type 2 diabetes mellitus with unspecified complications (principal); I10 Essential (primary) hypertension
CPT/HCPCS: 36415; 80053; 82043; 82570; 82607; 82652; 82746; 83721; 84153; 84439; 84443

== ENCOUNTER 2023-11-30 11:45 | Outpatient (AMB) | payer OTHER, SELFPAY ==
--- NOTE | 2023-11-30 11:30 | A.OFFPC_ITS ---
Vital Signs 11/30/23 11:59 Height 6 ft 1.23 in Weight 235 lb BMI 30.8 BP 116/73 Blood Pressure Location Rt brachial Position Sitting Pulse 84 Pulse Source Pulse Oximeter Pulse Oximetry (%) 96 Oxygen Delivery Method Room Air Intake Visit Reasons: HDF/STROKE Intake Note: Hospital follow up Air Hoist Operator Required: No Allergies No Known Allergies Allergy (Verified 11/30/23 11:53) Medication List - Last Reconciled 11/30/23 by Fiorella Dior, WALL AND FLOOR TILER- amlodipine 10 mg PO DAILY ascorbic acid (vitamin C) (Vitamin C) 500 mg PO Q OTHER DAY aspirin 81 mg PO DAILY atorvastatin 80 mg PO BEDTIME blood sugar diagnostic (Accu-Chek Mari Plus test strips) As directed clopidogrel 75 mg PO DAILY ferrous sulfate 325 mg PO Q OTHER DAY insulin glargine-yfgn units subcut lisinopril 40 mg PO DAILY metformin 500 mg PO BID pen needle, diabetic (BD Ultra-Fine Short Pen Needle) As directed Tobacco use date assessed: 10/22/23 Dental Screening Dental Screen Date: 10/22/23 HPI HPI Comments History of Present Illness Details 53-year-old male with polysubstance abus e (EtOH, marijuana, cocaine), hypertension, alcohol use disorder in remission, former smoker, headaches, diabetes type 2, 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 MRI of the brain shows acute infarct involving the left thalamus and posterior limb of the left internal capsule, with residual right-sided weakness dysarthria and right-sided facial droop. Echo and bubble study done showed no evidence of PFO. Addiction medicine was consulted for the cocaine abuse. He was currently on hydrochlorothiazide and lisinopril for blood pressure control. However he was noted to be hypokalemic. Therefore lisinopril was increased to 40 mg, hydrochlorothiazide was discontinued and amlodipine was added. Labs also showed iron-deficiency anemia. Started on iron. Recommend colonoscopy. Had several bouts of urinary retention requiring Alejo catheter placement. At short-term rehab he did require straight catheterization. He was discharged to short-term rehab on 11/05/2023. He was dc home from [facility] 11/19/23. hga1c 15.4% during hospital visit. Admission Date: 11/01/23 to [facility] 11/05/23 to [facility] for [facility]. Discharge Date: 11/19/23 from [facility] Hospital: [facility] Pending diagnostic tests/treatments: 14 day holter Pending consults: [facility] Neurology scheduled for December 21 DME: glucometer and insulin supplies, walker PT/OT/STEREOTYPE FINISHER: d/c home with [facility] for [place] and [place] [facility]. States he needs order for outpatient PT, OT and STEREOTYPE FINISHER to be done at [facility] Referrals: placed today for outpatient PT, OT, STEREOTYPE FINISHER @ [facility]. Optho [facility] for DM eye exam, Diabetes [place] [facility] [place] [place] for colonoscopy/anemia Diagnostics ordered: 14 day holter; labs to be done today Medications reconciled & updated. New medications upon d/c include amlodipine 10 mg daily Aspirin 81 mg daily Atorvastatin 80 mg daily Ferrous sulfate 325 mg 1 tab every other day Insulin glargine 44 units daily Lisinopril 40 mg daily Metformin 500mg tab twice per day MiraLax as needed Vitamin-C 500 mg 1 tab orally every other day to be taken with iron Plavix 75 mg po QD x 21 days, d/c 11/23/23 per Neurology records; however he remains on this. Changes made today: DC plavix. 21 day therapy completed 11/23/23. Per last Neuro note d/c after 21 days Today he presents by himself. trying to adapt since the CVA w/ residual R taylor, admits its tough. reports no longer having any issues w/ urinary retention. Reports normal urination. no further drug use; does not feel needs addiction med at this time. Will be joining NA Did not get holter monitor, no cards referral in place at this time. Denies chest pain Feels like he is managing his dm care however would like [facility] to help him. Denies hypoglycemia. Log reviewed 140-210mg/dl. using walker most of the time; no falls. States taking all meds as directed. Does not need refills. he is admin his own meds w/ help of brother and does not need help otherwise. During todays TCM visit, the d/c summary was reviewed, along with the need for or follow-up on pending diagnostic tests and treatments, as necessary interaction with other health medicare interviewer who will assume or reassume care of the beneficiary?s system-specific problems was done or is being worked on, education was provided to the beneficiary, family, guardian, and/or caregiver, referrals to establish or re-establish and arrange needed community resources we completed, assistance in scheduling required follow-up with community providers and services & finally updated medication list given to patient/caregiver Exam: awake alert appears older than stated age right facial droop, dysarthria, RUE and RLE weakness 4/5 Amb w/ gait, unsteady gait MMM RRR LS dim throughout BLE with trace pedal edema R>L, hairless, + PP bilat, skin intact Mood and affect appropriate [facility] Medical History MDD (major depressive disorder), recurrent episode, moderate Pre-diabetes HTN (hypertension) Social History (Updated 10/22/23 @ 12:23 by Danyell Salazar [facility]) Household Members: None Housing: House Do you presently have visiting nurse or other home services: No Alcohol intake: never Patient Tobacco Use Status: Former Tobacco user Years Smoked: 20 e-Cigarette/Vaping Use: Never Used Second Hand Smoke Exposure: No Substance Use Type: Marijuana and Caffiene service: No 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 Curt Abreu, Yanni Gregg, Anirudh Millan and colleagues, with an educational amado from [employer]. Physical exam (Primary Care) Vital Signs: Last Vital Signs Pulse 84 11/30/23 11:59 BP 116/73 11/30/23 11:59 Pulse Ox 96 11/30/23 11:59 Oxygen Delivery Method Room Air 11/30/23 11:59 BMI result Body Mass Index 30.8 Tobacco/Smoking Status: Tobacco use Status Tobacco use date assessed 10/22/23 11/30/23 11:30 Patient Tobacco Use Status Former Tobacco user 11/30/23 11:30 e-Cigarette/Vaping Use Never Used 11/30/23 11:30 Thrive Assessment: Date of Thrive Assessment Date Thrive assessed 04/01/23 11/30/23 11:30 Assessment and Plan Assessment & Plan (1) Hospital discharge follow-up: Code(s): Z09 - Encounter for follow-up examination after completed treatment for conditions other than malignant neoplasm (2) Hemiparesis affecting right side as late effect of stroke: Code(s): I69.351 - Hemiplegia and hemiparesis following cerebral infarction affecting right dominant side (3) Iron deficiency anemia: Code(s): D50.9 - Iron deficiency anemia, unspecified Qualifiers: Iron deficiency anemia type: unspecified iron deficiency Qualified Code(s): D50.9 - Iron deficiency anemia, unspecified (4) DM type 2 causing complication: Comment: was on Synjardy XR 1000mg/12.5 mg 2 tabs po QM in the past; now on insulin and metformin Code(s): E11.8 - Type 2 diabetes mellitus with unspecified complications (5) CVA (cerebral vascular accident): Comment: 11/01/2023 with R hemiplegia Code(s): I63.9 - Cerebral infarction, unspecified Qualifiers: CVA mechanism: embolism Laterality of affected vessel: left Precerebral and cerebral artery: posterior cerebral artery Qualified Code(s): I63.432 - Cerebral infarction due to embolism of left posterior cerebral artery (6) CAD (coronary atherosclerotic disease): Comment: the CTA of the neck done 10/31/2023 did show calcified arthrosclerotic plaque at the carotid bifurcation, aorta mild arteriosclerotic calcification of the aortic arch Code(s): I25.10 - Atherosclerotic heart disease of [place] coronary artery without angina pectoris Qualifiers: Associated angina: without angina Coronary Disease-Associated Artery/Lesion type: [place] artery [place] vs. transplanted heart: [place] heart Qualified Code(s): I25.10 - Atherosclerotic heart disease of [place] coronary artery without angina pectoris (7) HTN (hypertension): Comment: Code(s): I10 - Essential (primary) hypertension Qualifiers: Hypertension type: secondary to endocrine disorders Qualified Code(s): I15.2 - Hypertension secondary to endocrine disorders (8) Cocaine abuse: Comment: in remission, per report. Code(s): F14.10 - Cocaine abuse, uncomplicated Plan This note is constructed using voice recognition software. While every effort has been made to ensure accuracy in robotics engineer, still errors may have been included Sometimes, these errors may affect the content or meaning of the given sentence . Total time spent caring for the patient today was 60 minutes. This includes time spent before the visit reviewing the chart, time spent during the visit, and time spent after the visit on documentation Orders: Orders Comprehensive Met. Panel Today D50.9 - Iron deficiency anemia, unspecified, E11.8 - Type 2 diabetes mellitus with unspecified complications, I69.351 - Hemiplegia and hemiparesis following cerebral infarction affecting right dominant side Complete Blood Count no Diff Today D50.9 - Iron deficiency anemia, unspecified, E11.8 - Type 2 diabetes mellitus with unspecified complications, I69.351 - Hemiplegia and hemiparesis following cerebral infarction affecting right dominant side PT Evaluation and Treatment Today I69.351 - Hemiplegia and hemiparesis following cerebral infarction affecting right dominant side ECG 14 day holter monitor Today I69.351 - Hemiplegia and hemiparesis following cerebral infarction affecting right dominant side IRON PROFILE Today D50.9 - Iron deficiency anemia, unspecified, E11.8 - Type 2 diabetes mellitus with unspecified complications, I69.351 - Hemiplegia and hemiparesis following cerebral infarction affecting right dominant side Phosphorus Today D50.9 - Iron deficiency anemia, unspecified, E11.8 - Type 2 diabetes mellitus with unspecified complications, I69.351 - Hemiplegia and hemiparesis following cerebral infarction affecting right dominant side OT Evaluation and Treatment Today I63.9 - Cerebral infarction, unspecified, I69.351 - Hemiplegia and hemiparesis following cerebral infarction affecting right dominant side Referrals Gastroenterology Referral D50.9 - Iron deficiency anemia, unspecified, Z12.11 - Encounter for screening for malignant neoplasm of colon Diabetes Education Referral E11.8 - Type 2 diabetes mellitus with unspecified complications Ophthalmology Referral E11.8 - Type 2 diabetes mellitus with unspecified complications, I63.9 - Cerebral infarction, unspecified Speech and Hearing Referral I63.9 - Cerebral infarction, unspecified, I69.351 - Hemiplegia and hemiparesis following cerebral infarction affecting right dominant side Patient Instructions: Neurology appt at [facility] 12/22/23 DM Education GI referral Discontinue plavix 14 day holter monitor ordered RTO 1 week for close f/u, sooner as needed. Coding Level of Care Code TCM High MDM <= 14 days Complex EM visit Add On G2211 Diagnoses Hospital discharge follow-up Z09 Hemiparesis affecting right side as late effect of stroke I69.351 Iron deficiency anemia, unspecified iron deficiency anemia type D50.9 Iron deficiency anemia type: unspecified iron deficiency DM type 2 causing complication E11.8 Cerebrovascular accident (CVA) due to embolism of left posterior cerebral artery I63.432 CVA mechanism: embolism Laterality of affected vessel: left Precerebral and cerebral artery: posterior cerebral artery Atherosclerosis of chicken [place] coronary artery of [place] heart without angina pectoris I25.10 Associated angina: without angina Coronary Disease-Associated Artery/Lesion type: [place] artery [place] vs. transplanted heart: [place] heart Hypertension due to endocrine disorder I15.2 Hypertension type: secondary to endocrine disorders Cocaine abuse F14.10
[2023-11-30 11:59] VITALS: BP 116/73; PULSE 84; O2SAT 96; BMI 30.8
== END 2023-11-30 12:36 | disposition home or self-care (01) ==
PROVIDERS: PCP Nurse Practitioner Family; Visit Provider Nurse Practitioner Family
DX: I69.351 Hemiplegia and hemiparesis following cerebral infarction affecting right dominant side (principal); E11.8 Type 2 diabetes mellitus with unspecified complications; I63.432 Cerebral infarction due to embolism of left posterior cerebral artery; F14.10 Cocaine abuse, uncomplicated; I25.10 Atherosclerotic heart disease of native coronary artery without angina pectoris; Z09 Encounter for follow-up examination after completed treatment for conditions other than malignant neoplasm; D50.9 Iron deficiency anemia, unspecified; I15.2 Hypertension secondary to endocrine disorders
CPT/HCPCS: 99215; G2211

== ENCOUNTER 2023-12-03 13:06 | Outpatient (REF) | payer OTHER, SELFPAY ==
[2023-12-03 14:54] LABS: Hematocrit 39.5 % (42.0-52.0); Hemoglobin 12.3 g/dl (14.0-18.0); Mean Corpuscular HGB Conc 31.1 g/dl (31.0-36.0); Mean Corpuscular Hemoglobin 23.4 pg (27.0-33.0); Mean Corpuscular Volume 75.2 fL (80.0-98.0); Mean Platelet Volume 9.5 fL (9.4-12.4); Platelet Count 292 X10*3/uL (160-400); Red Blood Count 5.25 X10*6/uL (4.60-5.80); White Blood Count 7.9 X10*3/uL (4.8-10.8)
[2023-12-03 15:32] LABS: Alanine Aminotransferase 35 U/L (0-40); Albumin Level 4.6 g/dL (3.5-5.0); Alkaline Phosphatase 77 U/L (39-117); Anion Gap 14 (12-20); Aspartate Amino Transferase 25 U/L (5-37); Bilirubin Total 0.7 mg/dL (0.0-1.0); Blood Urea Nitrogen 11 mg/dL (9-16); Calcium 10.4 mg/dL (8.4-10.2); Carbon Dioxide 26 mmol/L (22-29); Chloride 102 mmol/L (96-108); Estimated Glomerular Filt Rate > 60; Glucose Random 221 mg/dL (60-115); Iron 95 mcg/dL (45-160); Percent Iron Saturation 28 % (15-50); Sodium 138 mmol/L (135-145); Total Iron Binding Capacity 345 mcg/dL (228-428); Total Protein 7.9 g/dL (6.5-8.0); Unsaturated Iron Binding 250 ug/dL
== END 2023-12-03 13:07 | disposition home or self-care (01) ==
LOC: HO.WFDLDS 13:06
PROVIDERS: Visit Provider Nurse Practitioner Family
DX: I69.351 Hemiplegia and hemiparesis following cerebral infarction affecting right dominant side (principal); D50.9 Iron deficiency anemia, unspecified; E11.8 Type 2 diabetes mellitus with unspecified complications
CPT/HCPCS: 36415; 80053; 83540; 84100; 85027

== ENCOUNTER 2023-12-09 10:07 | Outpatient (AMB) | payer OTHER, SELFPAY ==
--- NOTE | 2023-12-09 10:08 | A.OFFPC_ITS ---
Vital Signs 12/09/23 10:14 12/09/23 10:18 Weight 224 lb 8 oz BP 127/73 112/74 Blood Pressure Location Rt brachial Lt brachial Position Sitting Sitting Intake Visit Reasons: 1 week 30 min FU stroke/labs Intake Note: patient here for follow up. Gimp Buttonhole Machine Operator Required: No Allergies No Known Allergies Allergy (Verified 12/09/23 10:13) Medication List - Last Reconciled 12/09/23 by Fiorella Dior, PULPWOOD CONTRACTOR-BC amlodipine 10 mg PO DAILY ascorbic acid (vitamin C) (Vitamin C) 500 mg PO Q OTHER DAY aspirin 81 mg PO DAILY atorvastatin 80 mg PO BEDTIME blood sugar diagnostic (Accu-Chek Mari Plus test strips) As directed ferrous sulfate 325 mg PO Q OTHER DAY insulin glargine-yfgn units subcut lisinopril 40 mg PO DAILY metformin 500 mg PO BID pen needle, diabetic (BD Ultra-Fine Short Pen Needle) As directed Tobacco use date assessed: 10/22/23 Dental Screening Dental Screen Date: 10/22/23 HPI HPI Comments History of Present Illness Details 53-year-old male with polysubstance abus e (EtOH, marijuana, cocaine), hypertension, alcohol use disorder in remission, former smoker, headaches, diabetes type 2, 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 Will start outpatient PT/OT/BALLROOM DANCE INSTRUCTOR 12/22/23 @ [facility] Eye exam 2 days ago, he reports + findings and a need to fu in 2 months. I will get this report. Has appt to get Holter Monitor GI appt scheduled in Jan 2024 Will be getting AFO for R foot along w a cane Cont to use walker at this time. No falls. 1 near fall, grab bar came of wall while getting into shower. offered and declined handicap placard He states he is having a hard time sleeping. When he lies flat feels like he can't breath like his airway is closing. Only sleeping about 3 hours. Admits shelter insomniac. He has never had a sleep study. When he is drinking fluids he often feels like it goes down the wrong tubes and he chokes and coughs. Happens several times per day. Not so much w/ food, but this can happen at times. He is drinking from a straw; thin liquids; regular consistency food. More active, getting out of the house. Feeling very bored and looking for a citivities. Exercising. Eating better. DM - testing glucose some times, did not test the last week. Discussed and encouraged CGM declined today Exam: awake alert appears older than stated age right facial droop, dysarthria, RUE and RLE weakness 4/5 Amb w/ gait, unsteady gait MMM RRR LS dim throughout BLE with trace pedal edema R>L, hairless, + PP bilat, skin intact Mood and affect appropriate Plan: I called [facility] @ [phone], asked to speak to BALLROOM DANCE INSTRUCTOR. Stated it was Rachele & that she would be given a message to call me back. .... as of 1408 no return call. Practice aspiration precautions CXR today to r/o asp pna though no sx cont all meds w/o change Sleep study RTO Dec 23 or for 30 min fu complex conditions, sooner as needed. This note is constructed using voice recognition software. While every effort has been made to ensure accuracy in medical transcriptionist, still errors may have been included Sometimes, these errors may affect the content or meaning of the given sentence . Total time spent caring for the patient today was 60 minutes. This includes time spent before the visit reviewing the chart, time spent during the visit, and time spent after the visit on documentation [facility] Medical History MDD (major depressive disorder), recurrent episode, moderate Pre-diabetes HTN (hypertension) Social History (Updated 10/22/23 @ 12:23 by Danyell Salazar CMA) Household Members: None Housing: House Do you presently have visiting nurse or other home services: No Alcohol intake: never Patient Tobacco Use Status: Former Tobacco user Years Smoked: 20 e-Cigarette/Vaping Use: Never Used Second Hand Smoke Exposure: No Substance Use Type: Marijuana and Caffiene service: No 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 Curt Abreu, Yanni Gregg, Anirudh Millan and colleagues, with an educational amado from [employer]. Physical exam (Primary Care) Vital Signs: Last Vital Signs BP 112/74 12/09/23 10:18 Tobacco/Smoking Status: Tobacco use Status Tobacco use date assessed 10/22/23 12/09/23 10:12 Patient Tobacco Use Status Former Tobacco user 12/09/23 10:12 e-Cigarette/Vaping Use Never Used 12/09/23 10:12 Thrive Assessment: Date of Thrive Assessment Date Thrive assessed 04/01/23 12/09/23 10:12 Assessment and Plan Assessment & Plan (1) CVA (cerebral vascular accident): Comment: 11/01/2023 with R hemiplegia Code(s): I63.9 - Cerebral infarction, unspecified Qualifiers: CVA mechanism: embolism Laterality of affected vessel: left Precere bral and cerebral artery: posterior cerebral artery Qualified Code(s): I63.432 - Cerebral infarction due to embolism of left posterior cerebral artery (2) Aspiration into airway: Code(s): T17.908A - Unspecified foreign body in respiratory tract, part unspecified causing other injury, initial encounter Qualifiers: Encounter type: initial encounter Qualified Code(s): T17.908A - Unspecified foreign body in respiratory tract, part unspecified causing other injury, initial encounter (3) Hemiparesis affecting right side as late effect of stroke: Code(s): I69.351 - Hemiplegia and hemiparesis following cerebral infarction affecting right dominant side (4) DM type 2 causing complication: Comment: was on Synjardy XR 1000mg/12.5 mg 2 tabs po QM in the past; now on insulin and metformin Code(s): E11.8 - Type 2 diabetes mellitus with unspecified complications Orders: Orders RT home sleep study Today I63.432 - Cerebral infarction due to embolism of left posterior cerebral artery, R06.81 - Apnea, not elsewhere classified XR chest 2V Today I63.432 - Cerebral infarction due to embolism of left posterior cerebral artery, T17.908A - Unspecified foreign body in respiratory tract, part unspecified causing other injury, initial encounter Medications: Changed From insulin glargine-yfgn subcut To insulin glargine-yfgn 44 units (0.44 mL) subcut DAILY 15 mL 0RF Coding Level of Care Code Est Pt Level 5 (36254) Complex EM visit Add On G2211 Diagnoses Cerebrovascular accident (CVA) due to embolism of left posterior cerebral artery I63.432 CVA mechanism: embolism Laterality of affected vessel: left Precerebral and cerebral artery: posterior cerebral artery Aspiration into airway, initial encounter T17.908A Encounter type: initial encounter Hemiparesis affecting right side as late effect of stroke I69.351 DM type 2 causing complication E11.8
[2023-12-09 10:14] VITALS: BP 127/73
[2023-12-09 10:18] VITALS: BP 112/74
== END 2023-12-09 13:29 | disposition home or self-care (01) ==
PROVIDERS: PCP Nurse Practitioner Family; Visit Provider Nurse Practitioner Family
DX: I63.432 Cerebral infarction due to embolism of left posterior cerebral artery (principal); T17.908A Unspecified foreign body in respiratory tract, part unspecified causing other injury, initial encounter; I69.351 Hemiplegia and hemiparesis following cerebral infarction affecting right dominant side; E11.8 Type 2 diabetes mellitus with unspecified complications
CPT/HCPCS: 99215; 99417; G2211

== ENCOUNTER 2023-12-10 11:47 | Outpatient (REF) | payer OTHER, SELFPAY ==
--- NOTE | ~2023-12-10 | XR_ITS ---
EXAMINATION: XR CHEST CLINICAL INFORMATION: Foreign body in the respiratory tract COMPARISON: None available. TECHNIQUE: 2 views of the chest were obtained. FINDINGS: No significant abnormality is noted involving the heart, lungs, mediastinum, bony thorax or soft tissues. XR/XR chest 2V IMPRESSION: Unremarkable examination.
== END 2023-12-10 11:48 | disposition home or self-care (01) ==
LOC: HO.XRAY 11:47
PROVIDERS: PCP Nurse Practitioner Family; Visit Provider Nurse Practitioner Family
DX: I63.432 Cerebral infarction due to embolism of left posterior cerebral artery (principal); T17.908A Unspecified foreign body in respiratory tract, part unspecified causing other injury, initial encounter
CPT/HCPCS: 71046

== ENCOUNTER → 2023-12-14 10:20 | Outpatient (REF) | payer OTHER, SELFPAY ==
--- NOTE | 2023-12-14 10:23 | HM_ITS ---
* Total monitoring time 10 days and 18 hours. * Underlying rhythm is sinus. Average ventricular rate 93/Min. About 35% of the time, rate > 100/Min. * Rare supraventricular ectopy. Very brief runs. Longest 15 beats. * Rare ventricular ectopy. * No significant pauses or AV blocks. * No patient markers or diary events. MTDD
== END ==
LOC: HO.CARD 10:20
PROVIDERS: PCP Nurse Practitioner Family; Visit Provider Nurse Practitioner Family
DX: I69.351 Hemiplegia and hemiparesis following cerebral infarction affecting right dominant side (principal)
CPT/HCPCS: 93246

== ENCOUNTER → 2023-12-14 10:23 | Outpatient (BNV) | payer OTHER, SELFPAY | PROVIDERS: PCP Nurse Practitioner Family; Visit Provider Internal Medicine | DX: I47.10 Supraventricular tachycardia, unspecified (principal); I49.3 Ventricular premature depolarization | CPT/HCPCS: 93248 ==

== ENCOUNTER 2023-12-22 10:11 | Outpatient (AMB) | payer OTHER, SELFPAY ==
--- NOTE | 2023-12-22 10:55 | A.OFFVIS_ITS ---
Intake Intake Visit Reasons: T2DM Accompanied by: Self / Same As Patient Allergies No Known Allergies Allergy (Verified 12/09/23 10:13) HPI Comprehensive Diabetes Asmnt Most Recent Diabetes Results: Microalb/Creat Ratio 318.0 ug/mg cr (<30) H 10/22/23 Cholesterol 156 mg/dL (<200) 03/29/23 HDL Cholesterol 46 mg/dL (>40) 03/29/23 Triglycerides 106 mg/dL (<150) 03/29/23 Creatinine 1.08 mg/dL (0.5-1.4) 12/03/23 Blood Urea Nitrogen 11 mg/dL (9-16) 12/03/23 Sodium 138 mmol/L (135-145) 12/03/23 Potassium 4.0 mmol/L (3.3-5.1) 12/03/23 Chloride 102 mmol/L (96-108) 12/03/23 Carbon Dioxide 26 mmol/L (22-29) 12/03/23 Calcium 10.4 mg/dL (8.4-10.2) H 12/03/23 AST 25 U/L (5-37) 12/03/23 ALT 35 U/L (0-40) 12/03/23 Total Protein 7.9 g/dL (6.5-8.0) 12/03/23 Albumin 4.6 g/dL (3.5-5.0) 12/03/23 [facility] Medical History MDD (major depressive disorder), recurrent episode, moderate Pre-diabetes HTN (hypertension) Social History (Updated 10/22/23 @ 12:23 by Danyell Salazar [facility]) Household Members: None Housing: House Do you presently have visiting nurse or other home services: No Alcohol intake: never Patient Tobacco Use Status: Former Tobacco user Years Smoked: 20 e-Cigarette/Vaping Use: Never Used Second Hand Smoke Exposure: No Substance Use Type: Marijuana and Caffiene service: No Current occupational status: employed (self employeed ) Current occupation: [employer] Current occupational exposures/hazards: No Sexual orientation: Straight/Heterosexual Cognitive needs: No Hearing needs: No Vision needs: No Assessment & Plan Assessment & Plan (1) Microalbuminuria due to type 2 diabetes mellitus: Comment: start ACEI today Code(s): E11.29 - Type 2 diabetes mellitus with other diabetic kidney complication; R80.9 - Proteinuria, unspecified Plan: Diabetes self-management education and support participation record Assessment/scale: 1= needs instructed? 2= needs review? 3= comprehend keep point? 4= demonstrates understanding/ competent? NC= Not Covered Topics Learning Objective: Initial visit Initial or post srvc Initial or post srvc Initial or post srvc Initial or post srvc Initial or post srvc Post srvc Comments Pre Edu-assessment/plan Outcome or reassess Outcome or reassess Outcome or reassess Outcome or reassess Outcome or reassess Outcome or reassess Diabetes pathophysiology 1 A Healthy eating 1 Being active 1 Taking medication 1 Monitoring glucose 1 Acute complication 1 Chronic complicated 1 A Lifestyle and healthy coping Diabetes distress in support ?Diabetes pathophysiology: ?Defined diabetes med identify own type of diabetes; list 3 options for treating diabetes Healthy eating: ?Described effect of type, amount and ?timing of food on blood glucose; list 3 methods for planning meal Being active: ?State effect of exercise on blood glucose level Taking medication: ?State effect of diabetes medications on diabetes; name diabetes medications taking, action and side effects Monitoring glucose: ?Identify recommended blood glucose targets and personal target Acute complication: ?List symptoms and treatment of hyper and hypoglycemia, DKA, sick day guidelines and guidelines for severe weather or situations of crisis and diabetes supply manage Chronic complication: ?To find the relationship of blood glucose levels to long- term complications of diabetes in screening and preventative measures Lifestyle and healthy coping: ?Described lifestyle and healthy coping strategies to rule out diabetes self-management Diabetes to stress and support: ?Recognize Diabetes to stress and be able to zandra ntified support options Learning objectives: The patient was provided with verbal and written education on the following topics as outlined below. The patient met all learning objectives and was able to verbalize understanding and provide teach back of education topics discussed . The patient was provided with the opportunity to ask questions and all questions were answered. Patient Assessment Assess patient education level/literacy/barriers, patient can identify carbohydrates that he eats from handouts Patient questions/concerns, patient's last A1c 12/12/2023 14% patient reports he was diagnosed type 2 diabetes approximately a year ago patient is currently taking Lantus 44 units daily metformin 500 mg b.i.d. What is Diabetes? Pathophysiology How the body produces and uses insulin Identify type of DM Risk factors Signs of Diabetes Brief overview of Diabetes Management Monitoring blood sugar Following a meal plan Regular exercise Maintaining a healthy weight Taking medication as needed Members of the care team (PCP, RN, MA, RD, CDE, licensed aircraft maintenance engineer) Blood glucose monitoring When/how often to test Target blood sugar ranges patient did not bring meter to today's visit Introduction to Nutrition Importance of healthy diet in managing DM Diet is personalized to individual preference Review patient?s regular diet/food preferences Who prepares meals/does food shopping/ Dining out?/ Barriers? How diet effects glucose Eating 3 balanced meals a day with small, healthy snacks between meals Review food groups Carbohydrates: What is a carbohydrate/Which food/food groups are considered car bohydrates Effect of carbohydrates on blood glucose Portion sizes Reading food labels Basic carb counting (if applicable per nursing assessment) Plate method Meal planning Recommendations: Follow plate method, consistent carbs and read nutritional labels. Smart Goal: Bring blood glucose meter to every visit at endocrine center Educational Materials: The patient was provided with the following written educational materials: Planning Healthy Meals Handout Patient Response to instructions: Comprehension of Instructions: Fair Readiness to make changes: Contemplation How confident they feel about making changes: Fair Portions of this note were created using voice recognition software, please excuse any words or phrases that may have been misinterpreted. Patient Instructions: Include regular daily activity. ADA recommends 30 minutes of exercise 5 days a week. Weight loss talk to PCP or Application Security Specialist before starting new plan. Test blood sugar as directed; Fasting and 2hpp largest meal. Watch trends in results. Utilize results and to assess how food, physical activity and medications affect blood sugar results. Bring glucometer or CGM to next visit. Be knowledgeable about diabetes medication, its action, side effects, efficacy, toxicity, prescribed dosage, appropriate timing and frequency of administration, effect of missed and delayed doses and instructions for storage, travel and safety. Problem solving techniques to monitor hypo/hyperglycemia episodes and treatments. Reduce risk reduction behaviors, smoking cessation, regular eye, foot and dental examinations. follow-up with dairy supplies sales representative in 1 month Coding Level of Care Code Est Pt Level 1 (90266) Diagnoses Microalbuminuria due to type 2 diabetes mellitus E11.29; R80.9
== END 2023-12-22 11:10 | disposition home or self-care (01) ==
PROVIDERS: PCP Nurse Practitioner Family; Visit Provider Registered Nurse Diabetes Educator
DX: E11.29 Type 2 diabetes mellitus with other diabetic kidney complication (principal); R80.9 Proteinuria, unspecified

== ENCOUNTER → 2023-12-22 10:11 | Outpatient (BNVA) | payer OTHER, SELFPAY | PROVIDERS: PCP Nurse Practitioner Family; Visit Provider Registered Nurse Diabetes Educator | DX: E11.29 Type 2 diabetes mellitus with other diabetic kidney complication (principal); R80.9 Proteinuria, unspecified | CPT/HCPCS: 99211 ==

== ENCOUNTER 2023-12-25 10:53 | Outpatient (AMB) | payer OTHER, SELFPAY ==
--- NOTE | 2023-12-25 10:55 | A.OFFPC_ITS ---
Vital Signs 12/25/23 10:58 Height 6 ft 1.23 in Weight 232 lb BMI 30.4 BP 142/100 H Blood Pressure Location Rt brachial Position Sitting Pulse 102 H Pulse Source Pulse Oximeter Pulse Oximetry (%) 98 Oxygen Delivery Method Room Air Intake Visit Reasons: F/U chronic conditions Intake Note: Patient here for f/u, pt would like to talk about not having meds for the past couple of days. Allergies No Known Allergies Allergy (Verified 12/25/23 10:59) Medication List - Last Reconciled 12/25/23 by Fiorella Dior, AUDIO/VIDEO TECHNICIAN- amlodipine 10 mg PO DAILY ascorbic acid (vitamin C) (Vitamin C) 500 mg PO Q OTHER DAY aspirin 81 mg PO DAILY atorvastatin 80 mg PO BEDTIME blood sugar diagnostic (Accu-Chek Mari Plus test strips) As directed ferrous sulfate 325 mg PO Q OTHER DAY insulin glargine-yfgn 44 units (0.44 mL) subcut DAILY lisinopril 40 mg PO DAILY metformin 500 mg PO BID pen needle, diabetic (BD Ultra-Fine Short Pen Needle) As directed Tobacco use date assessed: 10/22/23 Dental Screening Dental Screen Date: 10/22/23 HPI HPI Comments History of Present Illness Details 53-year-old male with polysubstance abus e (EtOH, marijuana, cocaine), hypertension, alcohol use disorder in remission, former smoker, headaches, diabetes type 2 with complications,, 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 Has been w/o meds for 5 days. Refill was being sent to Rehab center. CXR negative for aspiration, i did not hear back from MUSIC INTERN. Reports that he is practicing aspiration precautions daily and is no longer having any difficulty with coughing or choking with fluid intake. Completed holter today. Results below. Bloody diarrhea for 3 days, resolved on own. Not taking plavix. No further episodes of bleeding. Did advise ED eval and tx during the time it was occurring; he did not want to go. Has Appt w/ GI 01/2024. Met with DM Educator found this to be helpful Needs referral for PT, OT, MUSIC INTERN. Long and short the [facility] referrals did not work out. New referrals placed at [facility] Sleep study scheduled 02/01/24 Neuro appt 12/22/2023, note requested but not available today. Also asked for the holter results to be faxed to Neuro . Exam: awake alert appears older than stated age right facial droop, dysarthria, RUE and RLE weakness 4/5 Amb w/ walker, unsteady gait MMM RRR LS clear throughout BLE with trace pedal edema R>L, hairless, + PP bilat, skin intact Mood and affect appropriate PLAN: NN BP recheck in 2 weeks Cont to exercise aspiration precautions cont all meds w/o change If any more GI bleeding, go to ED. Sleep study as scheduled Referral to [facility] for PT/OT/MUSIC INTERN At next visit , consider Cards consult... not done @ this time. 30 min appt w me in 6 weeks to fu on com plex dz mgmt, sooner PRN This note is constructed using voice recognition software. While every effort has been made to ensure accuracy in forest biometrics professor, still errors may have been included Sometimes, these errors may affect the content or meaning of the given sentence . Total time spent caring for the patient today was 45 minutes. This includes time spent before the visit reviewing the chart, time spent during the visit, and time spent after the visit on documentation [facility] Medical History MDD (major depressive disorder), recurrent episode, moderate Pre-diabetes HTN (hypertension) Social History (Updated 10/22/23 @ 12:23 by Danyell Salazar CMA) Household Members: None Housing: House Do you presently have visiting nurse or other home services: No Alcohol intake: never Patient Tobacco Use Status: Former Tobacco user Years Smoked: 20 e-Cigarette/Vaping Use: Never Used Second Hand Smoke Exposure: No Substance Use Type: Marijuana and Caffiene service: No 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 Curt Abreu, Yanni Gregg, Anirudh Millan and colleagues, with an educational amado from [employer]. Physical exam (Primary Care) Vital Signs: Last Vital Signs Pulse 102 H 12/25/23 10:58 BP 142/100 H 12/25/23 10:58 Pulse Ox 98 12/25/23 10:58 Oxygen Delivery Method Room Air 12/25/23 10:58 BMI result Body Mass Index 30.4 Tobacco/Smoking Status: Tobacco use Status Tobacco use date assessed 10/22/23 12/25/23 10:58 Patient Tobacco Use Status Former Tobacco user 12/25/23 10:58 e-Cigarette/Vaping Use Never Used 12/25/23 10:58 Thrive Assessment: Date of Thrive Assessment Date Thrive assessed 04/01/23 12/25/23 10:58 Results Reviewed Results Reviewed: [address] [address] Holter Monitor Report Signed Patient: Almas Marshall MR#: [id number] : 1970 Acct:[id number] Age/Sex: 53 / M ADM Date: 12/14/23 Loc: [facility] Attending Dr: Fiorella PRADO Ordering Physician: Fiorella Dior Date of Service: 12/14/23 Procedure(s): ECG 14 day holter monitor Accession Number(s): cc: Fiorella Dior~ * Total monitoring time 10 days and 18 hours. * Underlying rhythm is sinus. Average ventricular rate 93/Min. About 35% of the time, rate > 100/Min. * Rare supraventricular ectopy. Very brief runs. Longest 15 beats. * Rare ventricular ectopy. * No significant pauses or AV blocks. * No patient markers or diary events. Dictated By: Nathanael Adler MD Signed By: <Electronically signed by Nathanael Adler MD> 12/28/23 0858 DD/ 56 TD/TT: 12/27/231656 Client Care Manager: Assessment and Plan Assessment & Plan (1) DM type 2 causing complication: Comment: was on Synjardy XR 1000mg/12.5 mg 2 tabs po QM in the past; now on insulin and metformin Code(s): E11.8 - Type 2 diabetes mellitus with unspecified complications (2) Hemiparesis affecting right side as late effect of stroke: Code(s): I69.351 - Hemiplegia and hemiparesis following cerebral infarction affecting right dominant side (3) CVA (cerebral vascular accident): Comment: 11/01/2023 with R hemiplegia Code(s): I63.9 - Cerebral infarction, unspecified Qualifiers: CVA mechanism: embolism Laterality of affected vessel: left Precerebral and cerebral artery: posterior cerebral artery Qualified Code(s): I63.432 - Cerebral infarction due to embolism of left posterior cerebral artery (4) Dysphagia as late effect of cerebrovascular accident (CVA): Code(s): I69.391 - Dysphagia following cerebral infarction Orders: Orders PT Evaluation and Treatment 12/25/23 I63.432 - Cerebral infarction due to embolism of left posterior cerebral artery, I69.351 - Hemiplegia and hemiparesis following cerebral infarction affecting right dominant side, I69.391 - Dysphagia following cerebral infarction OT Evaluation and Treatment 12/25/23 I63.432 - Cerebral infarction due to embolism of left posterior cerebral artery, I69.351 - Hemiplegia and hemiparesis following cerebral infarction affecting right dominant side, I69.391 - Dysphagia following cerebral infarction Referrals Speech and Hearing Referral I63.432 - Cerebral infarction due to embolism of left posterior cerebral artery, I69.351 - Hemiplegia and hemiparesis following cerebral infarction affecting right dominant side, I69.391 - Dysphagia following cerebral infarction Medications: New amlodipine 10 mg (2 x 5 mg) PO DAILY 90 tabs 0RF ascorbic acid (vitamin C) (Vitamin C) 500 mg PO Q OTHER DAY 90 tabs 2RF aspirin 81 mg PO DAILY 90 tabs 2RF atorvastatin 80 mg PO BEDTIME 90 tabs 2RF Changed From ferrous sulfate 325 mg PO Q OTHER DAY To ferrous sulfate 325 mg PO Q OTHER DAY 90 days 45 tabs 2RF From insulin glargine-yfgn 44 units (0.44 mL) subcut DAILY 15 mL 0RF E11.8 - Type 2 diabetes mellitus with unspecified complications To insulin glargine-yfgn 44 units (0.44 mL) subcut DAILY 90 days 40 mL 2RF E11.8 - Type 2 diabetes mellitus with unspecified complications From lisinopril 40 mg PO DAILY To lisinopril 40 mg (2 x 20 mg) PO DAILY 90 days 180 tabs 1RF From metformin 500 mg PO BID To metformin 500 mg PO BID 90 days 180 tabs 2RF Coding Level of Care Code Est Pt Level 5 (50788) Diagnoses DM type 2 causing complication E11.8 Hemiparesis affecting right side as late effect of stroke I69.351 Cerebrovascular accident (CVA) due to embolism of left posterior cerebral artery I63.432 CVA mechanism: embolism Laterality of affected vessel: left Precerebral and cerebral artery: posterior cerebral artery Dysphagia as late effect of cerebrovascular accident (CVA) I69.391
[2023-12-25 10:58] VITALS: BP 142/100; PULSE 102; O2SAT 98; BMI 30.4
== END 2023-12-25 12:27 | disposition home or self-care (01) ==
PROVIDERS: PCP Nurse Practitioner Family; Visit Provider Nurse Practitioner Family
DX: E11.8 Type 2 diabetes mellitus with unspecified complications (principal); I69.351 Hemiplegia and hemiparesis following cerebral infarction affecting right dominant side; I63.432 Cerebral infarction due to embolism of left posterior cerebral artery; I69.391 Dysphagia following cerebral infarction
CPT/HCPCS: 99215

== ENCOUNTER 2024-01-15 10:21 | Outpatient (RCR) | payer OTHER, SELFPAY | END 2024-02-08 11:24 | disposition home or self-care (01) | LOC: HO.OT 10:21 | PROVIDERS: PCP Nurse Practitioner Family; Visit Provider Nurse Practitioner Family | DX: I63.432 Cerebral infarction due to embolism of left posterior cerebral artery (principal); I69.351 Hemiplegia and hemiparesis following cerebral infarction affecting right dominant side; I69.391 Dysphagia following cerebral infarction | CPT/HCPCS: 97110; 97165 ==

== ENCOUNTER 2024-02-10 09:57 | Outpatient (AMB) | payer OTHER, SELFPAY ==
--- NOTE | 2024-02-10 10:18 | MHC.PC.OV ---
Vital Signs 02/10/24 10:20 Height 6 ft 1 in Weight 235 lb BMI 31.0 BP 112/66 Blood Pressure Location Rt brachial Position Sitting Respiration 14 Pulse 66 Pulse Source Pulse Oximeter Pulse Oximetry (%) 97 Oxygen Delivery Method Room Air Intake Visit Reasons: 30 min for complex dz mgmt Intake Note: routine follow up Allergies No Known Allergies Allergy (Verified 02/10/24 11:01) Medication List - Last Reconciled 02/10/24 by Fiorella Dior, [employer]- amlodipine 10 mg (2 x 5 mg) PO DAILY ascorbic acid (vitamin C) (Vitamin C) 500 mg PO Q OTHER DAY aspirin 81 mg PO DAILY atorvastatin 80 mg PO BEDTIME blood sugar diagnostic (Accu-Chek Mari Plus test strips) As directed ferrous sulfate 325 mg PO Q OTHER DAY 90 days hydrochlorothiazide 25 mg PO QAM 30 days insulin glargine-yfgn 44 units (0.44 mL) subcut DAILY 90 days lisinopril 40 mg (2 x 20 mg) PO DAILY 90 days metformin 500 mg PO BID 90 days pen needle, diabetic (BD Ultra-Fine Short Pen Needle) As directed Tobacco use date assessed: 10/22/23 Dental Screening Dental Screen Date: 10/22/23 HPI HPI Comments History of Present Illness Details 53-year-old male with polysubstance abuse (EtOH, marijuana, cocaine), hypertension, alcohol use disorder in remission, former smoker, headaches, diabetes type 2 with complications,, 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 He needs a new refill sent on his insulin pen needles. His blood pressure was noted to be elevated however hydrochlorothiazide was added. His blood pressure is now at goal. He states he never got a call for physical therapy. However he is active and occupational therapy. Declined speech therapy as he does not feel like he needs it. Denies any aspiration. He canceled his sleep study as he does not feel like he needs it. Reports that he is sleeping well. Advised him that this was to further evaluate the reason why he had a stroke. Patient continues to decline this. Therefore the order was canceled. He is no longer having anymore diarrhea or bloody diarrhea. He has not had any chest pain or palpitations. He is no longer using a walker or a cane or his AFO. He has not had any falls. He is eager to return to work. 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 He is looking for a letter to say it's ok to work. He is driving. Exam: awake alert appears older than stated age right facial droop, dysarthria, RUE and RLE weakness 4/5 Amb w/o asst devices, mildly gait however much better than previous. Sit to stand w/o use of handrails. Get up and go WNL MMM RRR LS clear throughout BLE with trace pedal edema R>L, hairless, + PP bilat, skin intact Mood and affect appropriate Plan: Upon review of his chart, that physical therapy referral was sent to [facility]. He wants to go to [facility]. A new order was placed today. Refill on insulin pen needle sent today Cont to excercise aspiration precautions daily Sleep study scheduled 02/01/24 & cancelled by pt. Neuro appt 12/22/2023, note requested but not available today. RTO in 3 months for routine fu labs 1 week before, sooner PRN This note is constructed using voice recognition software. While every effort has been made to ensure accuracy in blueprint processor, still errors may have been included Sometimes, these errors may affect the content or meaning of the given sentence . Total time spent caring for the patient today was 45 minutes. This includes time spent before the visit reviewing the chart, time spent during the visit, and time spent after the visit on documentation [facility] Medical History MDD (major depressive disorder), recurrent episode, moderate Pre-diabetes HTN (hypertension) Social History (Updated 10/22/23 @ 12:23 by Danyell Salazar CMA) Household Members: None Housing: House Do you presently have visiting nurse or other home services: No Alcohol intake: never Patient Tobacco Use Status: Former Tobacco user Years Smoked: 20 e-Cigarette/Vaping Use: Never Used Second Hand Smoke Exposure: No Substance Use Type: Marijuana and Caffiene service: No 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 Curt Abreu, Yanni Gregg, Anirudh Millan and colleagues, with an educational amado from [employer]. Physical exam (Primary Care) Vital Signs: Last Vital Signs Pulse 66 02/10/24 10:20 Resp 14 02/10/24 10:20 BP 112/66 02/10/24 10:20 Pulse Ox 97 02/10/24 10:20 Oxygen Delivery Method Room Air 02/10/24 10:20 BMI result Body Mass Index 31.0 Tobacco/Smoking Status: Tobacco use Status Tobacco use date assessed 10/22/23 02/10/24 10:19 Patient Tobacco Use Status Former Tobacco user 02/10/24 10:19 e-Cigarette/Vaping Use Never Used 02/10/24 10:19 Thrive Assessment: Date of Thrive Assessment Date Thrive assessed 04/01/23 02/10/24 10:19 Assessment and Plan Assessment & Plan (1) Hemiparesis affecting right side as late effect of stroke: Code(s): I69.351 - Hemiplegia and hemiparesis following cerebral infarction affecting right dominant side (2) CVA (cerebral vascular accident): Comment: 11/01/2023 with R hemiplegia Code(s): I63.9 - Cerebral infarction, unspecified Qualifiers: CVA mechanism: embolism Laterality of affected vessel: left Precerebral and cerebral artery: posterior cerebral artery Qualified Code(s): I63.432 - Cerebral infarction due to embolism of left posterior cerebral artery (3) DM type 2 causing complication: Comment: was on Synjardy XR 1000mg/12.5 mg 2 tabs po QM in the past; now on insulin and metformin Code(s): E11.8 - Type 2 diabetes mellitus with unspecified complications (4) Current use of insulin: Code(s): Z79.4 - care home (current) use of insulin (5) Microalbuminuria due to type 2 diabetes mellitus: Comment: start ACEI today Code(s): E11.29 - Type 2 diabetes mellitus with other diabetic kidney complication; R80.9 - Proteinuria, unspecified (6) Iron deficiency anemia: Code(s): D50.9 - Iron deficiency anemia, unspecified Qualifiers: Iron deficiency anemia type: unspecified iron deficiency Qualified Code(s): D50.9 - Iron deficiency anemia, unspecified (7) CAD (coronary atherosclerotic disease): Comment: the CTA of the neck done 10/31/2023 did show calcified arthrosclerotic plaque at the carotid bifurcation, aorta mild arteriosclerotic calcification of the aortic arch Code(s): I25.10 - Atherosclerotic heart disease of [place] coronary artery without angina pectoris Qualifiers: Coronary Disease-Associated Artery/Lesion type: [place] artery [place] vs. transplanted heart: [place] heart Associated angina: without angina Qualified Code(s): I25.10 - Atherosclerotic heart disease of [place] coronary artery without angina pectoris (8) Nonproliferative diabetic retinopathy: Comment: DME 12/07/23 [facility] Code(s): E11.3299 - Type 2 diabetes mellitus with mild nonproliferative diabetic retinopathy without macular edema, unspecified eye Orders: Orders Hemoglobin A1c 04/24/24 D50.9 - Iron deficiency anemia, unspecified, E11.29 - Type 2 diabetes mellitus with other diabetic kidney complication, E11.3299 - Type 2 diabetes mellitus with mild nonproliferative diabetic retinopathy without macular edema, unspecified eye, E11.8 - Type 2 diabetes mellitus with unspecified complications, I25.10 - Atherosclerotic heart disease of [place] coronary artery without angina pectoris, I63.432 - Cerebral infarction due to embolism of left posterior cerebral artery, R80.9 - Proteinuria, unspecified, 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 Complete Blood Count no Diff 04/24/24 D50.9 - Iron deficiency anemia, unspecified, E11.29 - Type 2 diabetes mellitus with other diabetic kidney complication, E11.3299 - Type 2 diabetes mellitus with mild nonproliferative diabetic retinopathy without macular edema, unspecified eye, E11.8 - Type 2 diabetes mellitus with unspecified complications, I25.10 - Atherosclerotic heart disease of [place] coronary artery without angina pectoris, I63.432 - Cerebral infarction due to embolism of left posterior cerebral artery, R80.9 - Proteinuria, unspecified, 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 Lipid Panel 04/24/24 D50.9 - Iron deficiency anemia, unspecified, E11.29 - Type 2 diabetes mellitus with other diabetic kidney complication, E11.3299 - Type 2 diabetes mellitus with mild nonproliferative diabetic retinopathy without macular edema, unspecified eye, E11.8 - Type 2 diabetes mellitus with unspecified complications, I25.10 - Atherosclerotic heart disease of [place] coronary artery without angina pectoris, I63.432 - Cerebral infarction due to embolism of left posterior cerebral artery, R80.9 - Proteinuria, unspecified, 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 Microalbumin, Random (w Creat) 04/24/24 D50.9 - Iron deficiency anemia, unspecified, E11.29 - Type 2 diabetes mellitus with other diabetic kidney complication, E11.3299 - Type 2 diabetes mellitus with mild nonproliferative diabetic retinopathy without macular edema, unspecified eye, E11.8 - Type 2 diabetes mellitus with unspecified complications, I25.10 - Atherosclerotic heart disease of [place] coronary artery without angina pectoris, I63.432 - Cerebral infarction due to embolism of left posterior cerebral artery, R80.9 - Proteinuria, unspecified, Z79.4 - care home (current) use of insulin Vitamin B12 and Folate 04/24/24 D50.9 - Iron deficiency anemia, unspecified, E11.29 - Type 2 diabetes mellitus with other diabetic kidney complication, E11.3299 - Type 2 diabetes mellitus with mild nonproliferative diabetic retinopathy without macular edema, unspecified eye, E11.8 - Type 2 diabetes mellitus with unspecified complications, I25.10 - Atherosclerotic heart disease of [place] coronary artery without angina pectoris, I63.432 - Cerebral infarction due to embolism of left posterior cerebral artery, R80.9 - Proteinuria, unspecified, Z79.4 - care home (current) use of insulin PT Evaluation and Treatment Today I63.432 - Cerebral infarction due to embolism of left posterior cerebral artery, I69.351 - Hemiplegia and hemiparesis following cerebral infarction affecting right dominant side Comprehensive [place]. 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 Medications: New pen needle, diabetic (BD Ultra-Fine Short Pen Needle) As directed 1,200 ea 11RF Changed From hydrochlorothiazide 25 mg PO QAM 30 days 30 tabs 2RF To hydrochlorothiazide 25 mg PO QAM 90 tabs 1RF From pen needle, diabetic (BD Ultra-Fine Short Pen Needle) As directed 1,200 ea 11RF E11.8 - Type 2 diabetes mellitus with unspecified complications, Z79.4 - care home (current) use of insulin To pen needle, diabetic (BD Ultra-Fine Short Pen Needle) daily 100 ea 2RF E11.8 - Type 2 diabetes mellitus with unspecified complications, Z79.4 - care home (current) use of insulin Coding Level of Care Code Est Pt Level 5 (37437) Complex EM visit Add On G2211 Diagnoses Hemiparesis affecting right side as late effect of stroke I69.351 Cerebrovascular accident (CVA) due to embolism of left posterior cerebral artery I63.432 CVA mechanism: embolism Laterality of affected vessel: left Precerebral and cerebral artery: posterior cerebral artery DM type 2 causing complication E11.8 Current use of insulin Z79.4 Microalbuminuria due to type 2 diabetes mellitus E11.29; R80.9 Iron deficiency anemia, unspecified iron deficiency anemia type D50.9 Iron deficiency anemia type: unspecified iron deficiency Atherosclerosis of [place] coronary artery of [place] heart without angina pectoris I25.10 Coronary Disease-Associated Artery/Lesion type: [place] artery [place] vs. transplanted heart: [place] heart Associated angina: without angina Nonproliferative diabetic retinopathy E11.3299
[2024-02-10 10:20] VITALS: BP 112/66; PULSE 66; RESP 14; O2SAT 97; BMI 31.0
== END 2024-02-10 11:25 | disposition home or self-care (01) ==
PROVIDERS: PCP Nurse Practitioner Family; Visit Provider Nurse Practitioner Family
DX: I69.351 Hemiplegia and hemiparesis following cerebral infarction affecting right dominant side (principal); I63.432 Cerebral infarction due to embolism of left posterior cerebral artery; E11.8 Type 2 diabetes mellitus with unspecified complications; Z79.4 Long term (current) use of insulin; E11.29 Type 2 diabetes mellitus with other diabetic kidney complication; E11.3299 Type 2 diabetes mellitus with mild nonproliferative diabetic retinopathy without macular edema, unspecified eye; R80.9 Proteinuria, unspecified; D50.9 Iron deficiency anemia, unspecified; I25.10 Atherosclerotic heart disease of native coronary artery without angina pectoris

== ENCOUNTER → 2024-02-10 09:57 | Outpatient (BNVA) | payer OTHER, SELFPAY | PROVIDERS: PCP Nurse Practitioner Family; Visit Provider Nurse Practitioner Family | DX: I69.351 Hemiplegia and hemiparesis following cerebral infarction affecting right dominant side (principal); E11.3299 Type 2 diabetes mellitus with mild nonproliferative diabetic retinopathy without macular edema, unspecified eye; R80.9 Proteinuria, unspecified; E11.29 Type 2 diabetes mellitus with other diabetic kidney complication; D50.9 Iron deficiency anemia, unspecified; I25.10 Atherosclerotic heart disease of native coronary artery without angina pectoris; Z79.899 Other long term (current) drug therapy; Z79.4 Long term (current) use of insulin | CPT/HCPCS: 99212 ==

== ENCOUNTER 2024-04-08 08:30 | Outpatient (REF) | payer OTHER, SELFPAY ==
[2024-04-08 11:41] LABS: Alanine Aminotransferase 33 U/L (0-40); Albumin Level 4.3 g/dL (3.5-5.0); Alkaline Phosphatase 79 U/L (39-117); Anion Gap 13 (12-20); Aspartate Amino Transferase 33 U/L (5-37); Bilirubin Total 0.7 mg/dL (0.0-1.0); Blood Urea Nitrogen 20 mg/dL (9-16); Calcium 9.7 mg/dL (8.4-10.2); Carbon Dioxide 25 mmol/L (22-29); Chloride 102 mmol/L (96-108); Cholesterol 99 mg/dL (<200); Estimated Glomerular Filt Rate > 60; Glucose Fasting 171 mg/dL (60-99); HDL Cholesterol 38 mg/dL (>40); LDL Cholesterol Calculated 46 mg/dL (<100); Potassium 4.3 mmol/L (3.3-5.1); Sodium 136 mmol/L (135-145); Total Protein 7.6 g/dL (6.5-8.0); Triglycerides 78 mg/dL (<150)
[2024-04-08 12:01] LABS: Estimated Average Glucose 197 mg/dL; Hemoglobin A1C 355.3139 umol/L; Hemoglobin A1c % 8.5 % (<6.0); Total Hemoglobin (HGBA1C) 5153.2918 umol/L
[2024-04-08 13:16] LABS: Folate 11.3 ng/mL (> or = 4.0); Vitamin B12 700 pg/mL (200-900)
[2024-04-08 13:58] LABS: Hematocrit 40.4 % (42.0-52.0); Hemoglobin 13.7 g/dl (14.0-18.0); Mean Corpuscular HGB Conc 33.9 g/dl (31.0-36.0); Mean Corpuscular Hemoglobin 28.1 pg (27.0-33.0); Mean Corpuscular Volume 82.8 fL (80.0-98.0); Mean Platelet Volume 9.5 fL (9.4-12.4); Platelet Count 307 X10*3/uL (160-400); Red Blood Count 4.88 X10*6/uL (4.60-5.80); Red Cell Distribution Width 18.7 % (11.0-16.0); White Blood Count 8.2 X10*3/uL (4.8-10.8)
[2024-04-08 18:22] LABS: Creatinine Urine 75.23 mg/dL; Microalbum/Creatinine Ratio Ur 6.6 ug/mg cr (<30)
== END 2024-04-08 08:31 | disposition home or self-care (01) ==
LOC: HO.WFDLDS 08:30
PROVIDERS: Visit Provider Nurse Practitioner Family
DX: E11.8 Type 2 diabetes mellitus with unspecified complications (principal); R80.9 Proteinuria, unspecified; E11.29 Type 2 diabetes mellitus with other diabetic kidney complication; D50.9 Iron deficiency anemia, unspecified; I63.432 Cerebral infarction due to embolism of left posterior cerebral artery; I25.10 Atherosclerotic heart disease of native coronary artery without angina pectoris; E11.3299 Type 2 diabetes mellitus with mild nonproliferative diabetic retinopathy without macular edema, unspecified eye; Z79.4 Long term (current) use of insulin
CPT/HCPCS: 36415; 80053; 80061; 82043; 82570; 82607; 82746; 83036; 85027

== ENCOUNTER 2024-04-26 14:14 | Outpatient (RCR) | payer OTHER, SELFPAY | END 2024-04-26 14:47 | disposition home or self-care (01) | LOC: HO.PT 14:14 | PROVIDERS: PCP Nurse Practitioner Family; Visit Provider Nurse Practitioner Family | DX: I63.432 Cerebral infarction due to embolism of left posterior cerebral artery (principal); I69.351 Hemiplegia and hemiparesis following cerebral infarction affecting right dominant side | CPT/HCPCS: 97110; 97162; 97530; 97535 ==

== ENCOUNTER 2024-05-06 09:09 | Outpatient (AMB) | payer OTHER, SELFPAY ==
--- NOTE | 2024-05-06 09:12 | MHC.PC.OV ---
Vital Signs 05/06/24 09:15 Height 6 ft 1 in Weight 251 lb 4 oz BMI 33.1 BP 130/80 Blood Pressure Location Rt brachial Position Sitting Respiration 14 Pulse 82 Pulse Source Pulse Oximeter Pulse Oximetry (%) 96 Oxygen Delivery Method Room Air Intake Visit Reasons: 3 mon.30 min routine fu,labs 1 wk prior/NEEDS A1C! Intake Note: 3 month follow up labs Set Up [employer] Required: No Allergies No Known Allergies Allergy (Verified 05/06/24 09:31) Medication List - Last Reconciled 05/06/24 by Fiorella Dior, CASTING AGENT- amlodipine 10 mg (2 x 5 mg) PO DAILY ascorbic acid (vitamin C) (Vitamin C) 500 mg PO Q OTHER DAY aspirin 81 mg PO DAILY atorvastatin 80 mg PO BEDTIME blood sugar diagnostic (Accu-Chek Mari Plus test strips) daily ferrous sulfate 325 mg PO Q OTHER DAY 90 days hydrochlorothiazide 25 mg PO QAM insulin glargine-yfgn 44 units (0.44 mL) subcut DAILY 90 days lisinopril 40 mg (2 x 20 mg) PO DAILY 90 days metformin 1,000 mg (2 x 500 mg) PO BID 90 days pen needle, diabetic (BD Ultra-Fine Short Pen Needle) daily sildenafil 12.5 mg (1/2 x 25 mg) PO DAILY PRN Tobacco use date assessed: 10/22/23 Dental Screening Dental Screen Date: 10/22/23 HPI HPI Comments History of Present Illness Details 54-year-old male with polysubstance abuse (EtOH, marijuana, cocaine), hypertension, alcohol use disorder in remission, former smoker, headaches, diabetes type 2 with complications,, 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 Health Maintenance: Diabetic Eye Exam: Nonproliferative DM retinopathy bilat, HTN retinopathy bilat, cataracts bilat 12/07/23 [facility], RTO 2 mo for visual field testing PSA done and WNL Colon: referred Declined flu 2023 Tdap 2020 Specialists: Optho Neuro at [facility] Here today for routine follow up of chronic diseases. Since last office visit he was feeling well. Checking his blood sugars only a few times a month. Reports he only has a readings greater than 200 after he eats something that is high in sugar or carbohydrates which he tries to limit. He is taking his insulin as directed along with his metformin. Overdue for eye exam; advised to call & schedule. He continues to take his antihypertensives with good control of his blood pressure. He continues to take his iron supplement every other day as taking a daily cause GI upset. He is tolerating it every other day. He continues on his atorvastatin without side effects. He is using p.r.n. sildenafil 12.5 mg sparingly with good effects and without any adverse events. He has a new skin rash to his left lower leg in his right arm the just started a few days ago. Present w/ completed HCP/ACP/Living will. Results 04/08/2024 shows improving CBC hemoglobin 13.7, hematocrit 40.4, normal electrolytes, normal renal function, fasting glucose 171, hemoglobin A1c 8.5% was 10.4%, normal calcium, normal liver profile, lipids at goal, B12 normal, urine microalbumin creatinine ratio normal Exam: awake alert appears older than stated age right facial droop, dysarthria, RUE and RLE weakness 4/5 Amb w/o asst devices, mildly unsteady gait however much better than previous. Sit to stand w/o use of handrails. Get up and go WNL MMM RRR LS clear throughout BLE with trace pedal edema R>L, hairless, + PP bilat, skin intact Mood and affect appropriate Tinea corporis noted to his left arm and left leg Plan Medication changes today will be: Topical clotrimazole to treat the tinea pedis Increase metformin 1000 mg po BID Goal of getting off insulin No change in dose @ this time Sildenifil 12.5 with caution, edu provided No other medication changes, refill sent as requested RTP 4 months with labs 1 week before routine fu This note is constructed using voice recognition software. While every effort has been made to ensure accuracy in stone breaker, still errors may have been included Sometimes, these errors may affect the content or meaning of the given sentence . Total time spent caring for the patient today was 45 minutes. This includes time spent before the visit reviewing the chart, time spent during the visit, and time spent after the visit on documentation [facility] Medical History MDD (major depressive disorder), recurrent episode, moderate Pre-diabetes HTN (hypertension) Social History (Updated 10/22/23 @ 12:23 by Danyell Salazar CMA) Household Members: None Housing: House Do you presently have visiting nurse or other home services: No Alcohol intake: never Patient Tobacco Use Status: Former Tobacco user Years Smoked: 20 e-Cigarette/Vaping Use: Never Used Second Hand Smoke Exposure: No Substance Use Type: Marijuana and Caffiene service: No 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 1. Little interest or pleasure in doing things: not at all 2. Feeling down, depressed, or hopeless: not at all 3. Trouble falling or staying asleep, or sleeping too much: not at all 4. Feeling tired or having little energy: not at all 5. Poor appetite or overeating: not at all 6. Feeling bad about yourself - or that you are a failure or have let yourself or your family down: not at all 7. Trouble concentrating on things, such as reading the newspaper or watching television: not at all 8. Moving or speaking so slowly that other people could have noticed. Or the opposite - being so fidgety or restless that you have been moving around a lot more than usual: not at all 9. Thoughts that you would be better off or of hurting yourself in some way: not at all Total score: 0 19778 - PHQ-9 Billing: Yes Source: Developed by Drs. Curt Abreu, Yanni Gregg, Anirudh Millan and colleagues, with an educational amado from [employer]. Thrive Questionnaire Date Thrive assessed: 05/06/24 I am a: Patient What is your living situation today?: I have a steady place to live Within the past 12 months, did the food you bought not last and you didn't have the money to get more?: Never true Within the past 12 months, did you worry whether your food would run out before you got money to buy more?: Never true Do you have trouble paying for medicines?: No Do you have trouble getting transportation to medical appointments?: No Do you have trouble paying your heating and electricity bill?: No Do you have trouble taking care of your child, family member or friend?: No Do you have trouble with day-to-day activities such as bathing, preparing meals, shopping, managing finances, etc.?: No Are you currently unemployed and looking for a job?: No Are you interested in more education?: No Please select the resources that you would like help with: None Currently or been in a relationship where the following occur: No concerns reported THRIVE Score: 0 AUDIT C Alcohol Use Questionnaire (AUDIT-C) 1. How often do you have a drink containing alcohol?: Never Total Score: 0 HENRY-7 AMB Questionnaire HENRY-7 Date HENRY - 7 assessed: 05/06/24 Feeling nervous, anxious, or on edge: 0 = Not at all Not being able to stop or control worryin = Not at all Worrying too much about different things: 0 = Not at all Trouble relaxin = Not at all Being so restless that it is hard to sit still: 0 = Not at all Becoming easily annoyed or irritable: 0 = Not at all Feeling afraid as if something awful might happen: 0 = Not at all Total HENRY-7 score (0-4 normal; 5-9 mild; 10-14 moderate; 15-21 severe): 0 Source: Developed by Drs. Curt Abreu, Yanni Gregg, Anirudh Millan and colleagues, with an educational amado from [employer]. HENRY-7 Assessment Billing HENRY-7 Assessment Tool: HENRY-7 Assessment 78693 Physical exam (Primary Care) Vital Signs: Last Vital Signs Pulse 82 05/06/24 09:15 Resp 14 05/06/24 09:15 BP 130/80 05/06/24 09:15 Pulse Ox 96 05/06/24 09:15 Oxygen Delivery Method Room Air 05/06/24 09:15 BMI result Body Mass Index 33.1 Tobacco/Smoking Status: Tobacco use Status Tobacco use date assessed 10/22/23 05/06/24 09:13 Patient Tobacco Use Status Former Tobacco user 05/06/24 09:13 e-Cigarette/Vaping Use Never Used 05/06/24 09:13 PHQ-9: PHQ-9 Score PHQ-9: Total score 0 05/06/24 09:26 Thrive Assessment: Date of Thrive Assessment Date Thrive assessed 05/06/24 05/06/24 09:13 Currently or been in a relationship where the following occur: No concerns reported Office Procedures Advance Care Planning Advance Care Planning discussion: Completed/Scanned Date of discussion: 05/06/24 Who was present: self Forms completed: Health Care Proxy, MOLST and Living will Time spent: 1-15 minutes, not on file Actual minutes spent: 10 Coding Level of Care Code Est Pt Level 5 (19830) Complex EM visit Add On G2211 Diagnoses Cerebrovascular accident (CVA) due to embolism of left posterior cerebral artery I63.432 CVA mechanism: embolism Laterality of affected vessel: left Precerebral and cerebral artery: posterior cerebral artery Current use of insulin Z79.4 Atherosclerosis of [place] coronary artery of [place] heart without angina pectoris I25.10 Associated angina: without angina Coronary Disease-Associated Artery/Lesion type: [place] artery [place] vs. transplanted heart: [place] heart Iron deficiency anemia, unspecified iron deficiency anemia type D50.9 Iron deficiency anemia type: unspecified iron deficiency Microalbuminuria due to type 2 diabetes mellitus E11.29; R80.9 DM type 2 causing complication E11.8 Hypertension due to endocrine disorder I15.2 Hypertension type: secondary to endocrine disorders MDD (major depressive disorder), recurrent episode, moderate F33.1 Full code status Z78.9 ACP (advance care planning) Z71.89 Influenza vaccination declined Z28.21 Tinea corporis B35.4 CPT Codes Advance Care Planning - Time spent: 1-15 minutes, not on file ([id number]) Additional Codes HENRY-7 Assessment Billing - HENRY-7 Assessment Tool: HENRY-7 Assessment 31513 ([id number]) PHQ-9 - 18539 - PHQ-9 Billing: Yes ([id number]) Assessment & Plan Assessment & Plan (1) CVA (cerebral vascular accident): Comment: 11/01/2023 with R hemiplegia Code(s): I63.9 - Cerebral infarction, unspecified Category: Medical Qualifiers: CVA mechanism: embolism Laterality of affected vessel: left Precerebral and cerebral artery: posterior cerebral artery Qualified Code(s): I63.432 - Cerebral infarction due to embolism of left posterior cerebral artery (2) Current use of insulin: Code(s): Z79.4 - care home (current) use of insulin Category: Medical (3) CAD (coronary atherosclerotic disease): Comment: the CTA of the neck done 10/31/2023 did show calcified arthrosclerotic plaque at the carotid bifurcation, aorta mild arteriosclerotic calcification of the aortic arch Code(s): I25.10 - Atherosclerotic heart disease of [place] coronary artery without angina pectoris Category: Medical Qualifiers: Associated angina: without angina Coronary Disease-Associated Artery/Lesion type: [place] artery [place] vs. transplanted heart: [place] heart Qualified Code(s): I25.10 - Atherosclerotic heart disease of [place] coronary artery without angina pectoris (4) Iron deficiency anemia: Code(s): D50.9 - Iron deficiency anemia, unspecified Category: Medical Qualifiers: Iron deficiency anemia type: unspecified iron deficiency Qualified Code(s): D50.9 - Iron deficiency anemia, unspecified (5) Microalbuminuria due to type 2 diabetes mellitus: Comment: ACEI Code(s): E11.29 - Type 2 diabetes mellitus with other diabetic kidney complication; R80.9 - Proteinuria, unspecified Category: Medical (6) DM type 2 causing complication: Comment: was on Synjardy XR 1000mg/12.5 mg 2 tabs po QM in the past; now on insulin and metformin Code(s): E11.8 - Type 2 diabetes mellitus with unspecified complications Category: Medical (7) HTN (hypertension): Comment: Code(s): I10 - Essential (primary) hypertension Category: Medical Qualifiers: Hypertension type: secondary to endocrine disorders Qualified Code(s): I15.2 - Hypertension secondary to endocrine disorders (8) MDD (major depressive disorder), recurrent episode, moderate: Comment: active, not on meds, no counselor. Code(s): F33.1 - Major depressive disorder, recurrent, moderate Category: Medical (9) Full code status: Code(s): Z78.9 - Other specified health status Category: Medical (10) ACP (advance care planning): Code(s): Z71.89 - Other specified counseling Category: Medical (11) Influenza vaccination declined: Code(s): Z28.21 - Immunization not carried out because of patient refusal Category: Medical (12) Tinea corporis: Code(s): B35.4 - Tinea corporis Category: Medical Plan . Orders: Orders Complete Blood Count no Diff Today D50.9 - Iron deficiency anemia, unspecified, E11.29 - Type 2 diabetes mellitus with other diabetic kidney complication, E11.8 - Type 2 diabetes mellitus with unspecified complications, F33.1 - Major depressive disorder, recurrent, moderate, I15.2 - Hypertension secondary to endocrine disorders, I25.10 - Atherosclerotic heart disease of [place] coronary artery without angina pectoris, I63.432 - Cerebral infarction due to embolism of left posterior cerebral artery, R80.9 - Proteinuria, unspecified, Z79.4 - termite control representative (current) use of insulin Comprehensive Met. Panel Today D50.9 - Iron deficiency anemia, unspecified, E11.29 - Type 2 diabetes mellitus with other diabetic kidney complication, E11.8 - Type 2 diabetes mellitus with unspecified complications, F33.1 - Major depressive disorder, recurrent, moderate, I15.2 - Hypertension secondary to endocrine disorders, I25.10 - Atherosclerotic heart disease of [place] coronary artery without angina pectoris, I63.432 - Cerebral infarction due to embolism of left posterior cerebral artery, R80.9 - Proteinuria, unspecified, Z79.4 - termite control representative (current) use of insulin Hemoglobin A1c Today D50.9 - Iron deficiency anemia, unspecified, E11.29 - Type 2 diabetes mellitus with other diabetic kidney complication, E11.8 - Type 2 diabetes mellitus with unspecified complications, F33.1 - Major depressive disorder, recurrent, moderate, I15.2 - Hypertension secondary to endocrine disorders, I25.10 - Atherosclerotic heart disease of [place] coronary artery without angina pectoris, I63.432 - Cerebral infarction due to embolism of left posterior cerebral artery, R80.9 - Proteinuria, unspecified, Z79.4 - care home (current) use of insulin Lipid Panel Today D50.9 - Iron deficiency anemia, unspecified, E11.29 - Type 2 diabetes mellitus with other diabetic kidney complication, E11.8 - Type 2 diabetes mellitus with unspecified complications, F33.1 - Major depressive disorder, recurrent, moderate, I15.2 - Hypertension secondary to endocrine disorders, I25.10 - Atherosclerotic heart disease of [place] coronary artery without angina pectoris, I63.432 - Cerebral infarction due to embolism of left posterior cerebral artery, R80.9 - Proteinuria, unspecified, Z79.4 - care home (current) use of insulin Microalbumin, Random (w Creat) Today D50.9 - Iron deficiency anemia, unspecified, E11.29 - Type 2 diabetes mellitus with other diabetic kidney complication, E11.8 - Type 2 diabetes mellitus with unspecified complications, F33.1 - Major depressive disorder, recurrent, moderate, I15.2 - Hypertension secondary to endocrine disorders, I25.10 - Atherosclerotic heart disease of [place] coronary artery without angina pectoris, I63.432 - Cerebral infarction due to embolism of left posterior cerebral artery, R80.9 - Proteinuria, unspecified, Z79.4 - care home (current) use of insulin Vitamin D 25-OH Total Today D50.9 - Iron deficiency anemia, unspecified, E11.29 - Type 2 diabetes mellitus with other diabetic kidney complication, E11.8 - Type 2 diabetes mellitus with unspecified complications, F33.1 - Major depressive disorder, recurrent, moderate, I15.2 - Hypertension secondary to endocrine disorders, I25.10 - Atherosclerotic heart disease of [place] coronary artery without angina pectoris, I63.432 - Cerebral infarction due to embolism of left posterior cerebral artery, R80.9 - Proteinuria, unspecified, Z79.4 - termite control representative (current) use of insulin IRON PROFILE Today D50.9 - Iron deficiency anemia, unspecified, E11.29 - Type 2 diabetes mellitus with other diabetic kidney complication, E11.8 - Type 2 diabetes mellitus with unspecified complications, F33.1 - Major depressive disorder, recurrent, moderate, I15.2 - Hypertension secondary to endocrine disorders, I25.10 - Atherosclerotic heart disease of [place] coronary artery without angina pectoris, I63.432 - Cerebral infarction due to embolism of left posterior cerebral artery, R80.9 - Proteinuria, unspecified, Z79.4 - care home (current) use of insulin Vitamin B12 and Folate Today D50.9 - Iron deficiency anemia, unspecified, E11.29 - Type 2 diabetes mellitus with other diabetic kidney complication, E11.8 - Type 2 diabetes mellitus with unspecified complications, F33.1 - Major depressive disorder, recurrent, moderate, I15.2 - Hypertension secondary to endocrine disorders, I25.10 - Atherosclerotic heart disease of [place] coronary artery without angina pectoris, I63.432 - Cerebral infarction due to embolism of left posterior cerebral artery, R80.9 - Proteinuria, unspecified, Z79.4 - care home (current) use of insulin Medications: New sildenafil administer 30 minutes to 4 hours before activity 12.5 mg (1/2 x 25 mg) PO DAILY PRN 30 tabs 0RF sexual activity clotrimazole 1% 1 appl topical BID 90 grams 2RF 4 weeks Changed From metformin 500 mg PO BID 90 days 180 tabs 2RF To metformin 1,000 mg (2 x 500 mg) PO BID 360 tabs 2RF 90 days From blood sugar diagnostic (Accu-Chek Mari Plus test strips) As directed 10 ea diabetes mellitus To blood sugar diagnostic (Accu-Chek Mari Plus test strips) daily 100 ea 2RF diabetes mellitus Refilled pen needle, diabetic (BD Ultra-Fine Short Pen Needle) daily 100 ea 2RF E11.8 - Type 2 diabetes mellitus with unspecified complications, Z79.4 - care home (current) use of insulin insulin glargine-yfgn 44 units (0.44 mL) subcut DAILY 40 mL 2RF 90 days E11.8 - Type 2 diabetes mellitus with unspecified complications Patient Instructions: Please call [facility],due for for visual field testing
[2024-05-06 09:15] VITALS: BP 130/80; PULSE 82; RESP 14; O2SAT 96; BMI 33.1
== END 2024-05-06 09:50 | disposition home or self-care (01) ==
PROVIDERS: PCP Nurse Practitioner Family; Visit Provider Nurse Practitioner Family
DX: I63.432 Cerebral infarction due to embolism of left posterior cerebral artery (principal); Z79.4 Long term (current) use of insulin; E11.29 Type 2 diabetes mellitus with other diabetic kidney complication; E11.8 Type 2 diabetes mellitus with unspecified complications; F33.1 Major depressive disorder, recurrent, moderate; I25.10 Atherosclerotic heart disease of native coronary artery without angina pectoris; D50.9 Iron deficiency anemia, unspecified; R80.9 Proteinuria, unspecified; I15.2 Hypertension secondary to endocrine disorders; Z78.9 Other specified health status; Z71.89 Other specified counseling; Z28.21 Immunization not carried out because of patient refusal

== ENCOUNTER → 2024-05-06 09:09 | Outpatient (BNVA) | payer OTHER, SELFPAY | PROVIDERS: PCP Nurse Practitioner Family; Visit Provider Nurse Practitioner Family | DX: I63.432 Cerebral infarction due to embolism of left posterior cerebral artery (principal); I25.10 Atherosclerotic heart disease of native coronary artery without angina pectoris; D50.9 Iron deficiency anemia, unspecified; E11.29 Type 2 diabetes mellitus with other diabetic kidney complication; R80.9 Proteinuria, unspecified; F33.1 Major depressive disorder, recurrent, moderate; B35.4 Tinea corporis; Z71.89 Other specified counseling; Z79.4 Long term (current) use of insulin | CPT/HCPCS: 96127; 99212 ==

== ENCOUNTER 2024-05-27 15:21 | Outpatient (AMB) | payer OTHER, SELFPAY ==
--- NOTE | 2024-05-27 15:22 | MHC.PC.OV ---
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 Required: No Allergies No Known Allergies Allergy (Verified 05/27/24 15:31) Medication List - Last Reconciled 05/27/24 by Fiorella Dior, [facility]- amlodipine 10 mg (2 x 5 mg) PO DAILY ascorbic acid (vitamin C) (Vitamin C) 500 mg PO Q OTHER DAY aspirin 81 mg PO DAILY atorvastatin 80 mg PO BEDTIME blood sugar diagnostic (Accu-Chek Mari Plus test strips) daily clotrimazole 1% 1 appl topical BID 4 weeks ferrous sulfate 325 mg PO Q OTHER DAY 90 days hydrochlorothiazide 25 mg PO QAM insulin glargine-yfgn 44 units (0.44 mL) subcut DAILY 90 days lisinopril 40 mg (2 x 20 mg) PO DAILY 90 days metformin 1,000 mg (2 x 500 mg) PO BID 90 days pen needle, diabetic (BD Ultra-Fine Short Pen Needle) daily sildenafil 12.5 mg (1/2 x 25 mg) PO DAILY PRN Tobacco use date assessed: 05/27/24 Dental Screening Dental Screen Date: 05/27/24 Did you have a dental visit in the last 12 months?: Yes Did you have a dental problem in the last 6 months where you did not have access to dental care?: No Was dental information given to patient?: Patient has dentist HPI HPI Comments History of Present Illness Details 54-year-old male with polysubstance abuse (EtOH, marijuana, cocaine) in remission, hypertension, alcohol use disorder in remission, former smoker, headaches, diabetes type 2 with complications,, 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 The patient is requesting this paperwork to be completed given his physical limitations status post embolic stroke with right hemiplegia and dysarthria which occurred in October of 2023. The patient continues with these impairments status post CVA in his unable to work. At this time I do agree that his condition is expected to effect his employment for 60 days to 12 months. Further consideration can be made as time goes on. His sildenafil was not filled by pharmacy per his reports; unsure why. Plan [place] department of transitional assistance paperwork completed today. Placed in a pre addressed and stamped envelope provided by the patient. Refill on silfenafil sent to local [facility]. Advised patient to return to the office as scheduled, sooner as needed. [facility] Medical History MDD (major depressive disorder), recurrent episode, moderate Pre-diabetes HTN (hypertension) Social History (Updated 05/27/24 @ 15:33 by JOHAN Murphy) Household Members: None Housing: House Do you presently have visiting nurse or other home services: No Alcohol intake: never Patient Tobacco Use Status: Former Tobacco user Years Smoked: 20 e-Cigarette/Vaping Use: Never Used Second Hand Smoke Exposure: No Substance Use Type: Marijuana and Caffiene service: No Current occupational status: unemployed and disabled Current occupational exposures/hazards: No Sexual orientation: Straight/Heterosexual Cognitive needs: No Hearing needs: No Vision needs: No Questionnaire Thrive Questionnaire Date Thrive assessed: 05/06/24 HENRY-7 AMB Questionnaire HENRY-7 Date HENRY - 7 assessed: 05/06/24 Source: Developed by Drs. Curt Abreu, Yanni Gregg, Anirudh Millan and colleagues, with an educational amado from [employer]. Physical exam (Primary Care) Tobacco/Smoking Status: Tobacco use Status Tobacco use date assessed 10/22/23 05/06/24 09:13 Patient Tobacco Use Status Former Tobacco user 05/06/24 09:13 e-Cigarette/Vaping Use Never Used 05/06/24 09:13 Thrive Assessment: Date of Thrive Assessment Date Thrive assessed 05/06/24 05/06/24 09:13 Telehealth Telehealth Telehealth Platform: [facility] Location of provider rendering services: practice address Location of patient: address on file Patient Identification confirmed using: Name, : Yes Telehealth method: voice only Patient verbally consented to treatment: Yes Patient verbally consented to billing insurance company: Yes Patient informed of any privacy concerns related to visit: Yes Minutes spent on Phone/Video with Pt.: 10 Coding Level of Care Code Tele Est Pt Level 2 (86233) Complex EM visit Add On G2211 Diagnoses Encounters for administrative purpose Z02.9 Dysarthria as late effect of cerebellar cerebrovascular accident (CVA) I69.322 Cerebrovascular accident (CVA) due to embolism of left posterior cerebral artery I63.432 CVA mechanism: embolism Precerebral and cerebral artery: posterior cerebral artery Laterality of affected vessel: left Hemiparesis affecting right side as late effect of stroke I69.351 Assessment & Plan Assessment & Plan (1) Encounters for administrative purpose: Code(s): Z02.9 - Encounter for administrative examinations, unspecified (2) Dysarthria as late effect of cerebellar cerebrovascular accident (CVA): Code(s): I69.322 - Dysarthria following cerebral infarction Category: Medical (3) CVA (cerebral vascular accident): Comment: 11/01/2023 with R hemiplegia Code(s): I63.9 - Cerebral infarction, unspecified Category: Medical Qualifiers: CVA mechanism: embolism Precerebral and cerebral artery: posterior cerebral artery Laterality of affected vessel: left Qualified Code(s): I63.432 - Cerebral infarction due to embolism of left posterior cerebral artery (4) Hemiparesis affecting right side as late effect of stroke: Code(s): I69.351 - Hemiplegia and hemiparesis following cerebral infarction affecting right dominant side Category: Medical Plan . Medications: Refilled sildenafil administer 30 minutes to 4 hours before activity 12.5 mg (1/2 x 25 mg) PO DAILY PRN 30 tabs 0RF sexual activity
== END 2024-05-27 15:33 | disposition home or self-care (01) ==
LOC: HO.HMCFM 15:21
PROVIDERS: PCP Nurse Practitioner Family; Visit Provider Nurse Practitioner Family
DX: I63.432 Cerebral infarction due to embolism of left posterior cerebral artery (principal); I69.351 Hemiplegia and hemiparesis following cerebral infarction affecting right dominant side; I69.322 Dysarthria following cerebral infarction; Z73.6 Limitation of activities due to disability

== ENCOUNTER → 2024-05-27 15:21 | Outpatient (BNVA) | payer OTHER, SELFPAY | PROVIDERS: PCP Nurse Practitioner Family; Visit Provider Nurse Practitioner Family ==

== ENCOUNTER 2024-08-29 09:11 | Outpatient (REF) | payer OTHER, SELFPAY ==
[2024-08-29 11:27] LABS: Hematocrit 41.7 % (42.0-52.0); Hemoglobin 14.2 g/dl (14.0-18.0); Mean Corpuscular HGB Conc 34.1 g/dl (31.0-36.0); Mean Corpuscular Hemoglobin 30.4 pg (27.0-33.0); Mean Corpuscular Volume 89.3 fL (80.0-98.0); Mean Platelet Volume 9.9 fL (9.4-12.4); Platelet Count 279 X10*3/uL (160-400); Red Blood Count 4.67 X10*6/uL (4.60-5.80); Red Cell Distribution Width 12.8 % (11.0-16.0); White Blood Count 7.9 X10*3/uL (4.8-10.8)
[2024-08-29 11:38] LABS: Estimated Average Glucose 212 mg/dL; Hemoglobin A1C 282.5534 umol/L
[2024-08-29 12:02] LABS: Creatinine Urine 144.74 mg/dL; Microalbum/Creatinine Ratio Ur 5.5 ug/mg cr (<30)
[2024-08-29 12:33] LABS: Folate 9.6 ng/mL (> or = 4.0); Vitamin B12 417 pg/mL (200-900)
[2024-08-29 12:58] LABS: Alanine Aminotransferase 34 U/L (0-40); Albumin Level 4.4 g/dL (3.5-5.0); Anion Gap 14 (12-20); Aspartate Amino Transferase 30 U/L (5-37); Bilirubin Total 0.6 mg/dL (0.0-1.0); Blood Urea Nitrogen 15 mg/dL (9-16); Calcium 9.7 mg/dL (8.4-10.2); Carbon Dioxide 24 mmol/L (22-29); Chloride 103 mmol/L (96-108); Cholesterol 91 mg/dL (<200); Estimated Glomerular Filt Rate > 60; Glucose Random 187 mg/dL (60-115); HDL Cholesterol 38 mg/dL (>40); Iron 104 mcg/dL (45-160); LDL Cholesterol Calculated 39 mg/dL (<100); Percent Iron Saturation 32 % (15-50); Potassium 4.3 mmol/L (3.3-5.1); Sodium 137 mmol/L (135-145); Total Iron Binding Capacity 328 mcg/dL (228-428); Total Protein 7.7 g/dL (6.5-8.0); Triglycerides 72 mg/dL (<150); Unsaturated Iron Binding 224 ug/dL; Vitamin D 25-OH Total 47.8 ng/mL (>30)
[2024-08-29 13:12] LABS: Alkaline Phosphatase 74 U/L (39-117)
== END 2024-08-29 09:12 | disposition home or self-care (01) ==
LOC: HO.WFDLDS 09:11
PROVIDERS: Visit Provider Nurse Practitioner Family
DX: I15.2 Hypertension secondary to endocrine disorders (principal); F33.1 Major depressive disorder, recurrent, moderate; R80.9 Proteinuria, unspecified; E11.29 Type 2 diabetes mellitus with other diabetic kidney complication; D50.9 Iron deficiency anemia, unspecified; I63.432 Cerebral infarction due to embolism of left posterior cerebral artery; I25.10 Atherosclerotic heart disease of native coronary artery without angina pectoris; Z79.4 Long term (current) use of insulin
CPT/HCPCS: 36415; 80053; 80061; 82043; 82306; 82570; 82607; 82746; 83036; 83540; 85027

== ENCOUNTER 2024-09-05 10:20 | Outpatient (AMB) | payer OTHER, SELFPAY ==
--- NOTE | 2024-09-05 10:26 | MHC.PC.OV ---
Vital Signs 09/05/24 10:29 09/05/24 11:16 Height 6 ft 1 in Weight 251 lb 4 oz BMI 33.1 BP 144/82 H 132/78 Blood Pressure Location Rt brachial Lt brachial Position Sitting Sitting Respiration 14 Pulse 82 Pulse Source Pulse Oximeter Temp 97.6 F Temp Source Oral Pulse Oximetry (%) 98 Oxygen Delivery Method Room Air Intake Visit Reasons: 4 MO COMPLEX ROUTINE FU LABS 1 WEEK BEFORE 30 MIN Intake Note: Routine follow up to review labs Termite Treater Required: No Allergies No Known Allergies Allergy (Verified 09/05/24 10:34) Medication List - Last Reconciled 09/05/24 by Fiorella Dior, CUTTING MACHINE TENDER HELPER-BC amlodipine 10 mg (2 x 5 mg) PO DAILY ascorbic acid (vitamin C) (Vitamin C) 500 mg PO Q OTHER DAY aspirin 81 mg PO DAILY atorvastatin 80 mg PO BEDTIME blood sugar diagnostic (Accu-Chek Mari Plus test strips) daily clotrimazole 1% 1 appl topical BID 4 weeks ferrous sulfate 325 mg PO Q OTHER DAY 90 days hydrochlorothiazide 25 mg PO QAM insulin glargine-yfgn 44 units (0.44 mL) subcut DAILY 90 days lisinopril 40 mg (2 x 20 mg) PO DAILY 90 days metformin 1,000 mg (2 x 500 mg) PO BID 90 days pen needle, diabetic (BD Ultra-Fine Short Pen Needle) daily sildenafil 12.5 mg (1/2 x 25 mg) PO DAILY PRN Tobacco use date assessed: 09/05/24 Dental Screening Dental Screen Date: 09/05/24 Did you have a dental visit in the last 12 months?: Yes Did you have a dental problem in the last 6 months where you did not have access to dental care?: No Was dental information given to patient?: Patient has dentist HPI HPI Comments History of Present Illness Details 54-year-old male with polysubstance abuse (EtOH, marijuana, cocaine), hypertension, alcohol use disorder in remission, former smoker, headaches, diabetes type 2 with complications,, 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 Health Maintenance: Diabetic Eye Exam: Nonproliferative DM retinopathy bilat, HTN retinopathy bilat, cataracts bilat 12/07/23 [facility], RTO 2 mo for visual field testing. 2024 report requested. PSA done and WNL Colon: referred Declined flu 2023 Tdap 2020 Specialists: Optho Neuro at [facility] Here today for routine follow up of chronic conditions Diabetes type 2 with complications. He is currently on metformin prescribed 2000 mg daily. This was increase in the last office visit. He reports that when he takes the 2 g he does have GI side effects. He was taking between 4732-4407 MG QD. Testing at home 160-170mg/dl. Also on insulin Glargine. Reports that the insurance would not fill his insulin and therefore he has been rationing it. He was unsure of why they would not give it to him. When he ran out who did pay mendes and has been rationing this since. [place] goal is to get him off insulin entirely. Unfortunately his A1c did take a hit with this. Is now 9%, was 8.5%. HTN: well controlled on current antihypertensives. Microalbuminuria: most recent evaluation of labs show resolved. He is on an JONNATHAN inhibitor DM Eye: Last exam 2024, report requested. HLD: on statin w/o side effects LDL at goal. Wt stable CAD: denies chest pain Embolic stroke w/ R hemiplegia: on ASA. No headaches. Exercising at home. Has gained strength. No falls. No ED or hospital visits. 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 Movitivated to return to [employer] employment Was denied [employer] d/t money in the bank. He is managing. Using sildenifil w/o side effects, sparingly. Iron def anemia - labs stable. Taking Iron QOD d/t GI side effects. No cocaine or etoh. Occassional marijuana use. Tinea corporis: Partial improvement w/ topical azole, ran out of refills. Results Labs 08/29/24 improving anemia, a1c worse 9 (was 8.5), HDL low but stable, all other labs wnl Exam: awake alert appears older than stated age right facial droop, dysarthria, RUE and RLE weakness 4/5 Amb w/o asst devices, mildly unsteady gait however much better than previous. Sit to stand w/o use of handrails. Get up and go WNL MMM RRR LS clear throughout BLE no edema, hairless, + PP bilat, skin intact Mood and affect appropriate Tinea corporis noted to bilat forearms Plan Refer to NN to help w/ prescription issues Start jardiance 10mg QD. May need to send alternate if insurance denies Cont all other meds Refills sent Requested copy of DM eye exam RTO 4 months, repeat labs 1 week before for CPE, sooner PRN This note is constructed using voice recognition software. While every effort has been made to ensure accuracy in director of business continuity, still errors may have been included Sometimes, these errors may affect the content or meaning of the given sentence . Total time spent caring for the patient today was 45 minutes. This includes time spent before the visit reviewing the chart, time spent during the visit, and time spent after the visit on documentation [facility] Medical History MDD (major depressive disorder), recurrent episode, moderate Pre-diabetes HTN (hypertension) Social History (Updated 05/27/24 @ 15:33 by DAPHNE Murphy-ENMA) Household Members: None Housing: House Do you presently have visiting nurse or other home services: No Alcohol intake: never Patient Tobacco Use Status: Former Tobacco user Years Smoked: 20 e-Cigarette/Vaping Use: Never Used Second Hand Smoke Exposure: No Substance Use Type: Marijuana and Caffiene service: No Current occupational status: unemployed and disabled Current occupational exposures/hazards: No Sexual orientation: Straight/Heterosexual Cognitive needs: No Hearing needs: No Vision needs: No Questionnaire PHQ-9 Over the last 2 weeks, how often have you been bothered by any of the following problems? 1. Little interest or pleasure in doing things: not at all 2. Feeling down, depressed, or hopeless: not at all 3. Trouble falling or staying asleep, or sleeping too much: several days 4. Feeling tired or having little energy: not at all 5. Poor appetite or overeating: not at all 6. Feeling bad about yourself - or that you are a failure or have let yourself or your family down: not at all 7. Trouble concentrating on things, such as reading the newspaper or watching television: not at all 8. Moving or speaking so slowly that other people could have noticed. Or the opposite - being so fidgety or restless that you have been moving around a lot more than usual: not at all 9. Thoughts that you would be better off or of hurting yourself in some way: not at all Total score: 1 Depression Screening Interpretation: Negative Depression Screening Done: Yes 92308 - PHQ-9 Billing: Yes Source: Developed by Drs. Curt Abreu, Yanni Gregg, Anirudh Millan and colleagues, with an educational amado from [employer]. Thrive Questionnaire Date Thrive assessed: 09/05/24 I am a: Patient What is your living situation today?: I have a steady place to live Within the past 12 months, did the food you bought not last and you didn't have the money to get more?: Never true Within the past 12 months, did you worry whether your food would run out before you got money to buy more?: Never true Do you have trouble paying for medicines?: Yes Do you have trouble getting transportation to medical appointments?: No Do you have trouble paying your heating and electricity bill?: No Do you have trouble taking care of your child, family member or friend?: No Do you have trouble with day-to-day activities such as bathing, preparing meals, shopping, managing finances, etc.?: No Are you currently unemployed and looking for a job?: No Are you interested in more education?: No Please select the resources that you would like help with: Paying for medicine Currently or been in a relationship where the following occur: No concerns reported THRIVE Score: 0 AUDIT C Alcohol Use Questionnaire (AUDIT-C) 1. How often do you have a drink containing alcohol?: Never 3. How often do you have six or more drinks on one occasion?: Never Total Score: 0 Score Reviewed/Action Taken: Yes HENRY-7 AMB Questionnaire HENRY-7 Date HENRY - 7 assessed: 09/05/24 Feeling nervous, anxious, or on edge: 0 = Not at all Not being able to stop or control worryin = Not at all Worrying too much about different things: 0 = Not at all Trouble relaxin = Not at all Being so restless that it is hard to sit still: 0 = Not at all Becoming easily annoyed or irritable: 0 = Not at all Feeling afraid as if something awful might happen: 0 = Not at all Total HENRY-7 score (0-4 normal; 5-9 mild; 10-14 moderate; 15-21 severe): 0 Source: Developed by Drs. Curt Abreu, Yanni Gregg, Anirudh Millan and colleagues, with an educational amado from [employer]. HENRY-7 Assessment Billing HENRY-7 Assessment Tool: HENRY-7 Assessment 27474 Physical exam (Primary Care) Vital Signs: Last Vital Signs Temp 97.6 F 09/05/24 10:29 Pulse 82 09/05/24 10:29 Resp 14 09/05/24 10:29 BP 144/82 H 09/05/24 10:29 Pulse Ox 98 09/05/24 10:29 Oxygen Delivery Method Room Air 09/05/24 10:29 BMI result Body Mass Index 33.1 Tobacco/Smoking Status: Tobacco use Status Tobacco use date assessed 09/05/24 09/05/24 10:31 Patient Tobacco Use Status Former Tobacco user 09/05/24 10:26 e-Cigarette/Vaping Use Never Used 09/05/24 10:26 PHQ-9: PHQ-9 Score PHQ-9: Total score 1 09/05/24 10:26 Depression Screening Interpretation: Negative Thrive Assessment: Date of Thrive Assessment Date Thrive assessed 09/05/24 09/05/24 10:26 Currently or been in a relationship where the following occur: No concerns reported Coding Level of Care Code Est Pt Level 5 (75711) Complex EM visit Add On G2211 Diagnoses DM type 2 causing complication E11.8 Atherosclerosis of [place] coronary artery of [place] heart without angina pectoris I25.10 Coronary Disease-Associated Artery/Lesion type: [place] artery [place] vs. transplanted heart: [place] heart Associated angina: without angina Current use of insulin Z79.4 Cerebrovascular accident (CVA) due to embolism of left posterior cerebral artery I63.432 CVA mechanism: embolism Precerebral and cerebral artery: posterior cerebral artery Laterality of affected vessel: left Dysarthria as late effect of cerebellar cerebrovascular accident (CVA) I69.322 Hemiparesis affecting right side as late effect of stroke I69.351 Hypertension due to endocrine disorder I15.2 Hypertension type: secondary to endocrine disorders Hypertensive retinopathy of both eyes H35.033 Cataract of both eyes, unspecified cataract type H26.9 Cataract type: unspecified Iron deficiency anemia, unspecified iron deficiency anemia type D50.9 Iron deficiency anemia type: unspecified iron deficiency MDD (major depressive disorder), recurrent episode, moderate F33.1 Microalbuminuria due to type 2 diabetes mellitus E11.29; R80.9 Nonproliferative diabetic retinopathy E11.3299 PVD (peripheral vascular disease) I73.9 Additional Codes HENRY-7 Assessment Billing - HENRY-7 Assessment Tool: HENRY-7 Assessment 75405 ([id number]) PHQ-9 - 83313 - PHQ-9 Billing: Yes ([id number]) Assessment & Plan Assessment & Plan (1) DM type 2 causing complication: Comment: HTN and HLD Code(s): E11.8 - Type 2 diabetes mellitus with unspecified complications Category: Medical (2) CAD (coronary atherosclerotic disease): Comment: the CTA of the neck done 10/31/2023 did show calcified arthrosclerotic plaque at the carotid bifurcation, aorta mild arteriosclerotic calcification of the aortic arch Code(s): I25.10 - Atherosclerotic heart disease of [place] coronary artery without angina pectoris Category: Medical Qualifiers: Coronary Disease-Associated Artery/Lesion type: [place] artery [place] vs. transplanted heart: [place] heart Associated angina: without angina Qualified Code(s): I25.10 - Atherosclerotic heart disease of [place] coronary artery without angina pectoris (3) Current use of insulin: Code(s): Z79.4 - termite treater (current) use of insulin Category: Medical (4) CVA (cerebral vascular accident): Comment: 11/01/2023 with R hemiplegia Code(s): I63.9 - Cerebral infarction, unspecified Category: Medical Qualifiers: CVA mechanism: embolism Precerebral and cerebral artery: posterior cerebral artery Laterality of affected vessel: left Qualified Code(s): I63.432 - Cerebral infarction due to embolism of left posterior cerebral artery (5) Dysarthria as late effect of cerebellar cerebrovascular accident (CVA): Code(s): I69.322 - Dysarthria following cerebral infarction Category: Medical (6) Hemiparesis affecting right side as late effect of stroke: Code(s): I69.351 - Hemiplegia and hemiparesis following cerebral infarction affecting right dominant side Category: Medical (7) HTN (hypertension): Comment: Code(s): I10 - Essential (primary) hypertension Category: Medical Qualifiers: Hypertension type: secondary to endocrine disorders Qualified Code(s): I15.2 - Hypertension secondary to endocrine disorders (8) Hypertensive retinopathy of both eyes: Code(s): H35.033 - Hypertensive retinopathy, bilateral Category: Medical (9) Cataract of both eyes: Code(s): H26.9 - Unspecified cataract Category: Medical Qualifiers: Cataract type: unspecified Qualified Code(s): H26.9 - Unspecified cataract (10) Iron deficiency anemia: Code(s): D50.9 - Iron deficiency anemia, unspecified Category: Medical Qualifiers: Iron deficiency anemia type: unspecified iron deficiency Qualified Code(s): D50.9 - Iron deficiency anemia, unspecified (11) MDD (major depressive disorder), recurrent episode, moderate: Comment: active, not on meds, no counselor. Code(s): F33.1 - Major depressive disorder, recurrent, moderate Category: Medical (12) Microalbuminuria due to type 2 diabetes mellitus: Comment: ACEI Code(s): E11.29 - Type 2 diabetes mellitus with other diabetic kidney complication; R80.9 - Proteinuria, unspecified Category: Medical (13) Nonproliferative diabetic retinopathy: Comment: DME 12/07/23 [facility] Code(s): E11.3299 - Type 2 diabetes mellitus with mild nonproliferative diabetic retinopathy without macular edema, unspecified eye Category: Medical (14) PVD (peripheral vascular disease): Comment: based on clinical exam optimize BP and A1c On statin asa Code(s): I73.9 - Peripheral vascular disease, unspecified Category: Medical Plan . Orders: Orders Complete Blood Count no Diff 4 Months D50.9 - Iron deficiency anemia, unspecified, E11.29 - Type 2 diabetes mellitus with other diabetic kidney complication, E11.8 - Type 2 diabetes mellitus with unspecified complications, F33.1 - Major depressive disorder, recurrent, moderate, H35.033 - Hypertensive retinopathy, bilateral, I15.2 - Hypertension secondary to endocrine disorders, I25.10 - Atherosclerotic heart disease of [place] coronary artery without angina pectoris, I63.432 - Cerebral infarction due to embolism of left posterior cerebral artery, I69.322 - Dysarthria following cerebral infarction, I69.351 - Hemiplegia and hemiparesis following cerebral infarction affecting right dominant side, I73.9 - Peripheral vascular disease, unspecified, R80.9 - Proteinuria, unspecified, Z79.4 - [facility] (current) use of insulin Comprehensive Met. Panel 4 Months D50.9 - Iron deficiency anemia, unspecified, E11.29 - Type 2 diabetes mellitus with other diabetic kidney complication, E11.8 - Type 2 diabetes mellitus with unspecified complications, F33.1 - Major depressive disorder, recurrent, moderate, H35.033 - Hypertensive retinopathy, bilateral, I15.2 - Hypertension secondary to endocrine disorders, I25.10 - Atherosclerotic heart disease of [place] coronary artery without angina pectoris, I63.432 - Cerebral infarction due to embolism of left posterior cerebral artery, I69.322 - Dysarthria following cerebral infarction, I69.351 - Hemiplegia and hemiparesis following cerebral infarction affecting right dominant side, I73.9 - Peripheral vascular disease, unspecified, R80.9 - Proteinuria, unspecified, Z79.4 - [facility] (current) use of insulin Hemoglobin A1c 4 Months D50.9 - Iron deficiency anemia, unspecified, E11.29 - Type 2 diabetes mellitus with other diabetic kidney complication, E11.8 - Type 2 diabetes mellitus with unspecified complications, F33.1 - Major depressive disorder, recurrent, moderate, H35.033 - Hypertensive retinopathy, bilateral, I15.2 - Hypertension secondary to endocrine disorders, I25.10 - Atherosclerotic heart disease of [place] coronary artery without angina pectoris, I63.432 - Cerebral infarction due to embolism of left posterior cerebral artery, I69.322 - Dysarthria following cerebral infarction, I69.351 - Hemiplegia and hemiparesis following cerebral infarction affecting right dominant side, I73.9 - Peripheral vascular disease, unspecified, R80.9 - Proteinuria, unspecified, Z79.4 - termite treater (current) use of insulin Lipid Panel 4 Months D50.9 - Iron deficiency anemia, unspecified, E11.29 - Type 2 diabetes mellitus with other diabetic kidney complication, E11.8 - Type 2 diabetes mellitus with unspecified complications, F33.1 - Major depressive disorder, recurrent, moderate, H35.033 - Hypertensive retinopathy, bilateral, I15.2 - Hypertension secondary to endocrine disorders, I25.10 - Atherosclerotic heart disease of [place] coronary artery without angina pectoris, I63.432 - Cerebral infarction due to embolism of left posterior cerebral artery, I69.322 - Dysarthria following cerebral infarction, I69.351 - Hemiplegia and hemiparesis following cerebral infarction affecting right dominant side, I73.9 - Peripheral vascular disease, unspecified, R80.9 - Proteinuria, unspecified, Z79.4 - termite treater (current) use of insulin Microalbumin, Random (w Creat) 4 Months D50.9 - Iron deficiency anemia, unspecified, E11.29 - Type 2 diabetes mellitus with other diabetic kidney complication, E11.8 - Type 2 diabetes mellitus with unspecified complications, F33.1 - Major depressive disorder, recurrent, moderate, H35.033 - Hypertensive retinopathy, bilateral, I15.2 - Hypertension secondary to endocrine disorders, I25.10 - Atherosclerotic heart disease of [place] coronary artery without angina pectoris, I63.432 - Cerebral infarction due to embolism of left posterior cerebral artery, I69.322 - Dysarthria following cerebral infarction, I69.351 - Hemiplegia and hemiparesis following cerebral infarction affecting right dominant side, I73.9 - Peripheral vascular disease, unspecified, R80.9 - Proteinuria, unspecified, Z79.4 - termite treater (current) use of insulin Vitamin B12 and Folate 4 Months D50.9 - Iron deficiency anemia, unspecified, E11.29 - Type 2 diabetes mellitus with other diabetic kidney complication, E11.8 - Type 2 diabetes mellitus with unspecified complications, F33.1 - Major depressive disorder, recurrent, moderate, H35.033 - Hypertensive retinopathy, bilateral, I15.2 - Hypertension secondary to endocrine disorders, I25.10 - Atherosclerotic heart disease of [place] coronary artery without angina pectoris, I63.432 - Cerebral infarction due to embolism of left posterior cerebral artery, I69.322 - Dysarthria following cerebral infarction, I69.351 - Hemiplegia and hemiparesis following cerebral infarction affecting right dominant side, I73.9 - Peripheral vascular disease, unspecified, R80.9 - Proteinuria, unspecified, Z79.4 - [facility] (current) use of insulin Vitamin D 25-OH Total 4 Months D50.9 - Iron deficiency anemia, unspecified, E11.29 - Type 2 diabetes mellitus with other diabetic kidney complication, E11.8 - Type 2 diabetes mellitus with unspecified complications, F33.1 - Major depressive disorder, recurrent, moderate, H35.033 - Hypertensive retinopathy, bilateral, I15.2 - Hypertension secondary to endocrine disorders, I25.10 - Atherosclerotic heart disease of [place] coronary artery without angina pectoris, I63.432 - Cerebral infarction due to embolism of left posterior cerebral artery, I69.322 - Dysarthria following cerebral infarction, I69.351 - Hemiplegia and hemiparesis following cerebral infarction affecting right dominant side, I73.9 - Peripheral vascular disease, unspecified, R80.9 - Proteinuria, unspecified, Z79.4 - termite treater (current) use of insulin Ferritin 4 Months D50.9 - Iron deficiency anemia, unspecified, E11.29 - Type 2 diabetes mellitus with other diabetic kidney complication, E11.8 - Type 2 diabetes mellitus with unspecified complications, F33.1 - Major depressive disorder, recurrent, moderate, H35.033 - Hypertensive retinopathy, bilateral, I15.2 - Hypertension secondary to endocrine disorders, I25.10 - Atherosclerotic heart disease of [place] coronary artery without angina pectoris, I63.432 - Cerebral infarction due to embolism of left posterior cerebral artery, I69.322 - Dysarthria following cerebral infarction, I69.351 - Hemiplegia and hemiparesis following cerebral infarction affecting right dominant side, I73.9 - Peripheral vascular disease, unspecified, R80.9 - Proteinuria, unspecified, Z79.4 - [facility] (current) use of insulin PSA, Ultra Sensitive 4 Months D50.9 - Iron deficiency anemia, unspecified, E11.29 - Type 2 diabetes mellitus with other diabetic kidney complication, E11.8 - Type 2 diabetes mellitus with unspecified complications, F33.1 - Major depressive disorder, recurrent, moderate, H35.033 - Hypertensive retinopathy, bilateral, I15.2 - Hypertension secondary to endocrine disorders, I25.10 - Atherosclerotic heart disease of [place] coronary artery without angina pectoris, I63.432 - Cerebral infarction due to embolism of left posterior cerebral artery, I69.322 - Dysarthria following cerebral infarction, I69.351 - Hemiplegia and hemiparesis following cerebral infarction affecting right dominant side, I73.9 - Peripheral vascular disease, unspecified, R80.9 - Proteinuria, unspecified, Z79.4 - termite treater (current) use of insulin TSH reflex Free T4 4 Months D50.9 - Iron deficiency anemia, unspecified, E11.29 - Type 2 diabetes mellitus with other diabetic kidney complication, E11.8 - Type 2 diabetes mellitus with unspecified complications, F33.1 - Major depressive disorder, recurrent, moderate, H35.033 - Hypertensive retinopathy, bilateral, I15.2 - Hypertension secondary to endocrine disorders, I25.10 - Atherosclerotic heart disease of [place] coronary artery without angina pectoris, I63.432 - Cerebral infarction due to embolism of left posterior cerebral artery, I69.322 - Dysarthria following cerebral infarction, I69.351 - Hemiplegia and hemiparesis following cerebral infarction affecting right dominant side, I73.9 - Peripheral vascular disease, unspecified, R80.9 - Proteinuria, unspecified, Z79.4 - [facility] (current) use of insulin Referrals Nurse Navigator Referral E11.8 - Type 2 diabetes mellitus with unspecified complications Medications: New empagliflozin 10 mg PO DAILY 90 tabs 2RF Refilled clotrimazole 1% 1 appl topical BID 4 weeks 90 grams 2RF amlodipine 10 mg (2 x 5 mg) PO DAILY 90 tabs 2RF aspirin 81 mg PO DAILY 90 tabs 2RF ascorbic acid (vitamin C) (Vitamin C) 500 mg PO Q OTHER DAY 90 tabs 2RF atorvastatin 80 mg PO BEDTIME 90 tabs 2RF ferrous sulfate 325 mg PO Q OTHER DAY 90 days 45 tabs 2RF hydrochlorothiazide 25 mg PO QAM 90 tabs 2RF lisinopril 40 mg (2 x 20 mg) PO DAILY 90 days 180 tabs 2RF metformin 1,000 mg (2 x 500 mg) PO BID 90 days 360 tabs 2RF insulin glargine-yfgn 44 units (0.44 mL) subcut DAILY 90 days 40 mL 2RF E11.8 - Type 2 diabetes mellitus with unspecified complications
[2024-09-05 10:29] VITALS: BP 144/82; PULSE 82; RESP 14; TEMP 36.4; O2SAT 98; BMI 33.1
[2024-09-05 11:16] VITALS: BP 132/78
== END 2024-09-05 11:02 | disposition home or self-care (01) ==
LOC: HO.HMCFM 10:24
PROVIDERS: PCP Nurse Practitioner Family; Visit Provider Nurse Practitioner Family
DX: E11.8 Type 2 diabetes mellitus with unspecified complications (principal); Z79.4 Long term (current) use of insulin; I63.432 Cerebral infarction due to embolism of left posterior cerebral artery; I69.351 Hemiplegia and hemiparesis following cerebral infarction affecting right dominant side; F33.1 Major depressive disorder, recurrent, moderate; E11.29 Type 2 diabetes mellitus with other diabetic kidney complication; E11.3299 Type 2 diabetes mellitus with mild nonproliferative diabetic retinopathy without macular edema, unspecified eye; I73.9 Peripheral vascular disease, unspecified; I25.10 Atherosclerotic heart disease of native coronary artery without angina pectoris; I69.322 Dysarthria following cerebral infarction; I15.2 Hypertension secondary to endocrine disorders; H35.033 Hypertensive retinopathy, bilateral

== ENCOUNTER → 2024-09-05 10:20 | Outpatient (BNVA) | payer OTHER, SELFPAY | PROVIDERS: PCP Nurse Practitioner Family; Visit Provider Nurse Practitioner Family | DX: E11.3299 Type 2 diabetes mellitus with mild nonproliferative diabetic retinopathy without macular edema, unspecified eye (principal); E11.51 Type 2 diabetes mellitus with diabetic peripheral angiopathy without gangrene; E11.29 Type 2 diabetes mellitus with other diabetic kidney complication; I10 Essential (primary) hypertension; I69.351 Hemiplegia and hemiparesis following cerebral infarction affecting right dominant side; I25.10 Atherosclerotic heart disease of native coronary artery without angina pectoris; I15.2 Hypertension secondary to endocrine disorders; R33.9 Retention of urine, unspecified; H35.033 Hypertensive retinopathy, bilateral; H26.9 Unspecified cataract; D50.9 Iron deficiency anemia, unspecified; F33.1 Major depressive disorder, recurrent, moderate; R80.9 Proteinuria, unspecified; Z79.4 Long term (current) use of insulin; Z79.84 Long term (current) use of oral hypoglycemic drugs; Z87.891 Personal history of nicotine dependence | CPT/HCPCS: 96127; 99212 ==

== ENCOUNTER → 2024-09-15 15:14 | Outpatient (BNVA) | payer OTHER, SELFPAY | PROVIDERS: PCP Nurse Practitioner Family ==

== ENCOUNTER 2024-12-28 08:00 | Outpatient (REF) | payer OTHER, SELFPAY ==
[2024-12-28 11:38] LABS: Hematocrit 38.5 % (42.0-52.0); Hemoglobin 13.3 g/dl (14.0-18.0); Mean Corpuscular HGB Conc 34.5 g/dl (31.0-36.0); Mean Corpuscular Hemoglobin 30.6 pg (27.0-33.0); Mean Corpuscular Volume 88.5 fL (80.0-98.0); NRBC Abs Auto 0.000 X10*3/uL (0.0-0.012); NRBC Pct Auto 0.0 /100WBC (0.0-0.2); Platelet Count 278 X10*3/uL (160-400); Red Blood Count 4.35 X10*6/uL (4.60-5.80); White Blood Count 6.2 X10*3/uL (4.8-10.8)
[2024-12-28 11:51] LABS: Hemoglobin A1C 160.6112 umol/L; Total Hemoglobin (HGBA1C) 3554.9415 umol/L
[2024-12-28 12:03] LABS: Alanine Aminotransferase 38 U/L (0-40); Albumin Level 4.4 g/dL (3.5-5.0); Alkaline Phosphatase 64 U/L (39-117); Anion Gap 14 (12-20); Aspartate Amino Transferase 39 U/L (5-37); Blood Urea Nitrogen 15 mg/dL (9-16); Calcium 9.5 mg/dL (8.4-10.2); Carbon Dioxide 26 mmol/L (22-29); Chloride 102 mmol/L (96-108); Cholesterol 97 mg/dL (<200); Estimated Glomerular Filt Rate > 60; HDL Cholesterol 43 mg/dL (>40); Potassium 4.1 mmol/L (3.3-5.1); Sodium 138 mmol/L (135-145); Total Protein 7.2 g/dL (6.5-8.0); Triglycerides 45 mg/dL (<150)
[2024-12-28 12:22] LABS: Folate 10.2 ng/mL (> or = 4.0); Vitamin B12 330 pg/mL (200-900)
[2024-12-28 12:33] LABS: Ferritin 44 ng/mL (20-250)
[2024-12-28 13:35] LABS: Free T4 (Free Thyroxine) 0.99 ng/dL (0.71-1.85)
[2025-01-01 14:05] LABS: PSA, Ultra Sensitive 0.80 ng/mL
== END 2024-12-28 08:01 | disposition home or self-care (01) ==
LOC: HO.WFDLDS 08:00
PROVIDERS: Visit Provider Nurse Practitioner Family
DX: I25.10 Atherosclerotic heart disease of native coronary artery without angina pectoris (principal); I63.432 Cerebral infarction due to embolism of left posterior cerebral artery; E11.8 Type 2 diabetes mellitus with unspecified complications; I69.322 Dysarthria following cerebral infarction; I69.351 Hemiplegia and hemiparesis following cerebral infarction affecting right dominant side; I15.2 Hypertension secondary to endocrine disorders; H35.033 Hypertensive retinopathy, bilateral; D50.9 Iron deficiency anemia, unspecified; F33.1 Major depressive disorder, recurrent, moderate; E11.29 Type 2 diabetes mellitus with other diabetic kidney complication; R80.9 Proteinuria, unspecified; I73.9 Peripheral vascular disease, unspecified; Z79.4 Long term (current) use of insulin
CPT/HCPCS: 36415; 80053; 80061; 82043; 82306; 82570; 82607; 82728; 82746; 83036; 84153; 84439; 84443; 85027

== ENCOUNTER 2025-02-14 12:55 | Outpatient (AMB) | payer OTHER, SELFPAY ==
--- NOTE | 2025-02-14 13:07 | MHC.PC.OV ---
Vital Signs 02/14/25 13:16 Height 6 ft 1 in Weight 227 lb 8 oz BMI 30.0 BP 108/68 Blood Pressure Location Lt brachial Position Sitting Respiration 13 Pulse 70 Pulse Source Pulse Oximeter Temp 96.9 F Temp Source Oral Pulse Oximetry (%) 97 Oxygen Delivery Method Room Air Intake Visit Reasons: Physical Intake Note: CPE [employer] Required: No Allergies No Known Allergies Allergy (Verified 02/14/25 13:25) Medication List - Last Reconciled 02/14/25 by DAPHNE Murphy- amlodipine 10 mg (2 x 5 mg) PO DAILY ascorbic acid (vitamin C) (Vitamin C) 500 mg PO Q OTHER DAY aspirin 81 mg PO DAILY atorvastatin 80 mg PO BEDTIME blood sugar diagnostic (Accu-Chek Mari Plus test strips) daily clotrimazole 1% 1 appl topical BID 4 weeks empagliflozin 10 mg PO DAILY ferrous sulfate 325 mg PO Q OTHER DAY 90 days hydrochlorothiazide 25 mg PO QAM insulin glargine-yfgn 44 units (0.44 mL) subcut DAILY 90 days lisinopril 40 mg (2 x 20 mg) PO DAILY 90 days metformin 1,000 mg (2 x 500 mg) PO BID 90 days pen needle, diabetic daily sildenafil 12.5 mg (1/2 x 25 mg) PO DAILY PRN Tobacco use date assessed: 02/14/25 Dental Screening Dental Screen Date: 02/14/25 Did you have a dental visit in the last 12 months?: Yes Did you have a dental problem in the last 6 months where you did not have access to dental care?: No Was dental information given to patient?: Patient has dentist HPI HPI Comments History of Present Illness Details 54-year-old male with polysubstance abuse (EtOH, marijuana, cocaine), hypertension, alcohol use disorder in remission, former smoker, headaches, diabetes type 2 with complications,, 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 Health Maintenance: Diabetic Eye Exam: Nonproliferative DM retinopathy bilat, HTN retinopathy bilat, cataracts bilat 12/07/23 [facility], RTO 2 mo for visual field testing. 2024 report requested. PSA done and WNL Colon: referred Declined flu 2024 Tdap 2020 Specialists: Optho Neuro at [facility] Here today for routine follow up of chronic conditions Diabetes type 2 with complications. He is currently on metformin prescribed 2000 mg daily. Testing at home 100-150mg/dl. Also on insulin Glargine 44 units/day. A1c improved from 9% to 6.4% HTN: well controlled on current antihypertensives. Microalbuminuria: most recent evaluation of labs show resolved. He is on an JONNATHAN inhibitor DM Eye: Last exam 2024, report requested. HLD: on statin w/o side effects LDL at goal. Wt stable CAD: denies chest pain Embolic stroke w/ R hemiplegia: on ASA. No headaches. Exercising at home. Has gained strength. No falls. No ED or hospital visits. Using sildenifil w/o side effects, sparingly. Iron def anemia - labs stable. Taking Iron QOD d/t GI side effects. due for colon. No cocaine or etoh. Occassional marijuana use. Tinea corporis: resolved Results 12/2024 reviewed w/ him. Look good except anemia Exam: awake alert appears older than stated age Amb w/o asst devices, mildly unsteady gait however much better than previous. Sit to stand w/o use of handrails. Get up and go WNL right facial droop, dysarthria, RUE and RLE weakness 4/5 PERRLA, EOMI TM intact and clear Nares patent Thyroid nontender, no carotid bruit MMM RRR LS clear throughout Abd soft, nontender, normoactive bs x 4 BLE no edema, hairless, + PP bilat, skin intact, abnormal vibratory and monofilament testing bilat Mood and affect appropriate Plan Decrease lantus from 44 units to 40 units per day. Goal to get off insulin. Cont all other meds Refills sent Requested copy of DM eye exam 2024. Referred for colon. RTO 6 months, repeat labs 1 week routine complex dz mgmt, sooner as needed An additional 30 minutes was spent addressing the problem(s) noted at todays visit. This includes time spent before the visit reviewing the chart, time spent during the visit, and time spent after the visit on documentation reviewing laboratory results, diagnostic imaging, medications, performing a medically necessary evaluation, counseling on diagnoses, care coordination, ordering appropriate tests, ordering appropriate medications, review of tests performed by other providers, reporting test results with the patient, communication with other healthcare providers. [facility] Medical History (Updated 02/14/25 @ 14:30 by DAPHNE Murphy-ENMA) BMI 31.0-31.9,adult HTN (hypertension) MDD (major depressive disorder), recurrent episode, moderate Pre-diabetes Social History (Updated 05/27/24 @ 15:33 by DAPHNE Murphy-ENMA) Household Members: None Housing: House Do you presently have visiting nurse or other home services: No Alcohol intake: never Patient Tobacco Use Status: Former Tobacco user Years Smoked: 20 e-Cigarette/Vaping Use: Never Used Second Hand Smoke Exposure: No Substance Use Type: Marijuana and Caffiene service: No Current occupational status: unemployed and disabled Current occupational exposures/hazards: No Sexual orientation: Straight/Heterosexual Cognitive needs: No Hearing needs: No Vision needs: No Questionnaire PHQ-9 Over the last 2 weeks, how often have you been bothered by any of the following problems? 1. Little interest or pleasure in doing things: not at all 2. Feeling down, depressed, or hopeless: not at all 3. Trouble falling or staying asleep, or sleeping too much: not at all 4. Feeling tired or having little energy: not at all 5. Poor appetite or overeating: not at all 6. Feeling bad about yourself - or that you are a failure or have let yourself or your family down: not at all 7. Trouble concentrating on things, such as reading the newspaper or watching television: not at all 8. Moving or speaking so slowly that other people could have noticed. Or the opposite - being so fidgety or restless that you have been moving around a lot more than usual: not at all 9. Thoughts that you would be better off or of hurting yourself in some way: not at all Total score: 0 Depression Screening Interpretation: Negative Depression Screening Done: Yes 97175 - PHQ-9 Billing: Yes Source: Developed by Drs. Curt LYanni Vasquez Kurt Kroenke and colleagues, with an educational amado from [employer]. Thrive Questionnaire Date Thrive assessed: 02/14/25 I am a: Patient What is your living situation today?: I have a steady place to live Within the past 12 months, did the food you bought not last and you didn't have the money to get more?: Never true Within the past 12 months, did you worry whether your food would run out before you got money to buy more?: Never true Do you have trouble paying for medicines?: Yes Do you have trouble getting transportation to medical appointments?: No Do you have trouble paying your heating and electricity bill?: No Do you have trouble taking care of your child, family member or friend?: No Do you have trouble with day-to-day activities such as bathing, preparing meals, shopping, managing finances, etc.?: No Are you currently unemployed and looking for a job?: No Are you interested in more education?: No Please select the resources that you would like help with: Paying for medicine Currently or been in a relationship where the following occur: No concerns reported THRIVE Score: 0 AUDIT C Alcohol Use Questionnaire (AUDIT-C) 1. How often do you have a drink containing alcohol?: Never 3. How often do you have six or more drinks on one occasion?: Never Total Score: 0 Score Reviewed/Action Taken: Yes HENRY-7 AMB Questionnaire HENRY-7 Date HENRY - 7 assessed: 02/14/25 Feeling nervous, anxious, or on edge: 0 = Not at all Not being able to stop or control worryin = Not at all Worrying too much about different things: 0 = Not at all Trouble relaxin = Not at all Being so restless that it is hard to sit still: 0 = Not at all Becoming easily annoyed or irritable: 0 = Not at all Feeling afraid as if something awful might happen: 0 = Not at all Total HENRY-7 score (0-4 normal; 5-9 mild; 10-14 moderate; 15-21 severe): 0 Source: Developed by Yanni Banks Kurt Kroenke and colleagues, with an educational amado from [employer]. HENRY-7 Assessment Billing HENRY-7 Assessment Tool: HENRY-7 Assessment 50525 Physical exam (Primary Care) Vital Signs: Last Vital Signs Temp 96.9 F 02/14/25 13:16 Pulse 70 02/14/25 13:16 Resp 13 02/14/25 13:16 BP 108/68 02/14/25 13:16 Pulse Ox 97 02/14/25 13:16 Oxygen Delivery Method Room Air 02/14/25 13:16 BMI result Body Mass Index 30.0 BMI Assessment/Plan discussion: High BMI High, discussed plan: lifestyle Tobacco/Smoking Status: Tobacco use Status Tobacco use date assessed 02/14/25 02/14/25 13:08 Patient Tobacco Use Status Former Tobacco user 02/14/25 13:08 e-Cigarette/Vaping Use Never Used 02/14/25 13:08 PHQ-9: PHQ-9 Score PHQ-9: Total score 0 02/14/25 13:08 Depression Screening Interpretation: Negative Thrive Assessment: Date of Thrive Assessment Date Thrive assessed 02/14/25 02/14/25 13:08 Currently or been in a relationship where the following occur: No concerns reported Office Procedures Advance Care Planning Advance Care Planning discussion: On file, no changes Date of discussion: 02/14/25 Who was present: pt Forms completed: Health Care Proxy, MOLST and Living will Time spent: 16-45 minutes Actual minutes spent: 16 Coding Level of Care Code Est Pt Level 4 (20060) Est Pt Prev Care 40-64y(02874) Diagnoses Encounter for general adult medical examination without abnormal findings Z00.00 Full code status Z78.9 ACP (advance care planning) Z71.89 MDD (major depressive disorder), recurrent episode, moderate F33.1 Cocaine abuse F14.10 Hypertension due to endocrine disorder I15.2 Hypertension type: secondary to endocrine disorders Atherosclerosis of [place] coronary artery of [place] heart without angina pectoris I25.10 Coronary Disease-Associated Artery/Lesion type: [place] artery [place] vs. transplanted heart: [place] heart Associated angina: without angina PVD (peripheral vascular disease) I73.9 DM type 2 causing complication E11.8 Microalbuminuria due to type 2 diabetes mellitus E11.29; R80.9 Current use of insulin Z79.4 Hypertensive retinopathy of both eyes H35.033 Nonproliferative diabetic retinopathy E11.3299 Dysphagia as late effect of cerebrovascular accident (CVA) I69.391 Iron deficiency anemia, unspecified iron deficiency anemia type D50.9 Iron deficiency anemia type: unspecified iron deficiency Influenza vaccination declined Z28.21 Hemiparesis affecting right side as late effect of stroke I69.351 Cerebrovascular accident (CVA) due to embolism of left posterior cerebral artery I63.432 CVA mechanism: embolism Precerebral and cerebral artery: posterior cerebral artery Laterality of affected vessel: left Dysarthria as late effect of cerebellar cerebrovascular accident (CVA) I69.322 Obesity (BMI 30-39.9) E66.9 Cataract of both eyes, unspecified cataract type H26.9 Cataract type: unspecified Diabetic peripheral neuropathy E11.42 CPT Codes Advance Care Planning - Advance Care Planning discussion: On file, no changes ([id number]) Advance Care Planning - Time spent: 16-45 minutes ([id number]) Additional Codes HENRY-7 Assessment Billing - HENRY-7 Assessment Tool: HENRY-7 Assessment 06003 ([id number]) PHQ-9 - 18803 - PHQ-9 Billing: Yes ([id number]) Assessment & Plan Assessment & Plan (1) Encounter for general adult medical examination without abnormal findings: Onset Date: ~02/14/25 Code(s): Z00.00 - Encounter for general adult medical examination without abnormal findings Category: Medical (2) Full code status: Code(s): Z78.9 - Other specified health status Category: Medical (3) ACP (advance care planning): Code(s): Z71.89 - Other specified counseling Category: Medical (4) MDD (major depressive disorder), recurrent episode, moderate: Comment: active, not on meds, no counselor. Code(s): F33.1 - Major depressive disorder, recurrent, moderate Category: Medical (5) Cocaine abuse: Comment: in remission, per report. Code(s): F14.10 - Cocaine abuse, uncomplicated Category: Medical (6) HTN (hypertension): Comment: Code(s): I10 - Essential (primary) hypertension Category: Medical Qualifiers: Hypertension type: secondary to endocrine disorders Qualified Code(s): I15.2 - Hypertension secondary to endocrine disorders (7) CAD (coronary atherosclerotic disease): Comment: the CTA of the neck done 10/31/2023 did show calcified arthrosclerotic plaque at the carotid bifurcation, aorta mild arteriosclerotic calcification of the aortic arch Code(s): I25.10 - Atherosclerotic heart disease of [place] coronary artery without angina pectoris Category: Medical Qualifiers: Coronary Disease-Associated Artery/Lesion type: [place] artery [place] vs. transplanted heart: [place] heart Associated angina: without angina Qualified Code(s): I25.10 - Atherosclerotic heart disease of [place] coronary artery without angina pectoris (8) PVD (peripheral vascular disease): Comment: based on clinical exam optimize BP and A1c On statin asa Code(s): I73.9 - Peripheral vascular disease, unspecified Category: Medical (9) DM type 2 causing complication: Comment: HTN and HLD Code(s): E11.8 - Type 2 diabetes mellitus with unspecified complications Category: Medical (10) Microalbuminuria due to type 2 diabetes mellitus: Comment: ACEI Code(s): E11.29 - Type 2 diabetes mellitus with other diabetic kidney complication; R80.9 - Proteinuria, unspecified Category: Medical (11) Current use of insulin: Code(s): Z79.4 - senior living (current) use of insulin Category: Medical (12) Hypertensive retinopathy of both eyes: Code(s): H35.033 - Hypertensive retinopathy, bilateral Category: Medical (13) Nonproliferative diabetic retinopathy: Comment: DME 12/07/23 [facility] 2024 report pending Code(s): E11.3299 - Type 2 diabetes mellitus with mild nonproliferative diabetic retinopathy without macular edema, unspecified eye Category: Medical (14) Dysphagia as late effect of cerebrovascular accident (CVA): Code(s): I69.391 - Dysphagia following cerebral infarction Category: Medical (15) Iron deficiency anemia: Code(s): D50.9 - Iron deficiency anemia, unspecified Category: Medical Qualifiers: Iron deficiency anemia type: unspecified iron deficiency Qualified Code(s): D50.9 - Iron deficiency anemia, unspecified (16) Influenza vaccination declined: Code(s): Z28.21 - Immunization not carried out because of patient refusal Category: Medical (17) Hemiparesis affecting right side as late effect of stroke: Code(s): I69.351 - Hemiplegia and hemiparesis following cerebral infarction affecting right dominant side Category: Medical (18) CVA (cerebral vascular accident): Comment: 11/01/2023 with R hemiplegia Code(s): I63.9 - Cerebral infarction, unspecified Category: Medical Qualifiers: CVA mechanism: embolism Precerebral and cerebral artery: posterior cerebral artery Laterality of affected vessel: left Qualified Code(s): I63.432 - Cerebral infarction due to embolism of left posterior cerebral artery (19) Dysarthria as late effect of cerebellar cerebrovascular accident (CVA): Code(s): I69.322 - Dysarthria following cerebral infarction Category: Medical (20) Obesity (BMI 30-39.9): Code(s): E66.9 - Obesity, unspecified Category: Medical (21) Cataract of both eyes: Code(s): H26.9 - Unspecified cataract Category: Medical Qualifiers: Cataract type: unspecified Qualified Code(s): H26.9 - Unspecified cataract (22) Diabetic peripheral neuropathy: Code(s): E11.42 - Type 2 diabetes mellitus with diabetic polyneuropathy Category: Medical Plan . Orders: Orders Hemoglobin A1c 6 Months E11.8 - Type 2 diabetes mellitus with unspecified complications, I15.2 - Hypertension secondary to endocrine disorders, I25.10 - Atherosclerotic heart disease of [place] coronary artery without angina pectoris, I73.9 - Peripheral vascular disease, unspecified TSH reflex Free T4 6 Months E11.8 - Type 2 diabetes mellitus with unspecified complications, I15.2 - Hypertension secondary to endocrine disorders, I25.10 - Atherosclerotic heart disease of [place] coronary artery without angina pectoris, I73.9 - Peripheral vascular disease, unspecified Lipid Panel 6 Months E11.8 - Type 2 diabetes mellitus with unspecified complications, I15.2 - Hypertension secondary to endocrine disorders, I25.10 - Atherosclerotic heart disease of [place] coronary artery without angina pectoris, I73.9 - Peripheral vascular disease, unspecified Comprehensive Met. Panel 6 Months E11.8 - Type 2 diabetes mellitus with unspecified complications, I15.2 - Hypertension secondary to endocrine disorders, I25.10 - Atherosclerotic heart disease of [place] coronary artery without angina pectoris, I73.9 - Peripheral vascular disease, unspecified Referrals Gastroenterology Referral D50.9 - Iron deficiency anemia, unspecified, Z12.11 - Encounter for screening for malignant neoplasm of colon Medications: Changed From insulin glargine-yfgn 44 units (0.44 mL) subcut DAILY 90 days 40 mL 2RF E11.8 - Type 2 diabetes mellitus with unspecified complications To insulin glargine-yfgn 40 units (0.4 mL) subcut DAILY 36 mL 2RF 90 days E11.8 - Type 2 diabetes mellitus with unspecified complications Refilled atorvastatin 80 mg PO BEDTIME 90 tabs 2RF hydrochlorothiazide 25 mg PO QAM 90 tabs 2RF metformin 1,000 mg (2 x 500 mg) PO BID 360 tabs 2RF 90 days empagliflozin 10 mg PO DAILY 90 tabs 2RF amlodipine 10 mg (2 x 5 mg) PO DAILY 90 tabs 2RF aspirin 81 mg PO DAILY 90 tabs 2RF ascorbic acid (vitamin C) (Vitamin C) 500 mg PO Q OTHER DAY 90 tabs 2RF ferrous sulfate 325 mg PO Q OTHER DAY 45 tabs 2RF 90 days lisinopril 40 mg (2 x 20 mg) PO DAILY 180 tabs 2RF 90 days Patient Instructions: Health screenings for men You should visit your health care provider regularly, even if you feel healthy. The purpose of these visits is to: Screen for medical issues Assess your risk for future medical problems Encourage a healthy lifestyle Update vaccinations and other preventive care services Help you get to know your provider in case of an illness Information Even if you feel fine, you should still see your provider for regular checkups. These visits can help you avoid problems in the future. For example, the only way to find out if you have high blood pressure is to have it checked regularly. High blood sugar and high cholesterol level also may not have any symptoms in the early stages. Simple blood tests can check for these conditions. There are specific times when you should see your provider or receive specific health screenings. The [place] Preventive Services Task Force publishes a list of recommended screenings. Below are screening guidelines for men ages 40 to 64. BLOOD PRESSURE SCREENING Have your blood pressure checked at least once every year. Watch for blood pressure screenings in your area. Ask your provider if you can stop in to have your blood pressure checked. Ask your provider if you need your blood pressure checked more often if: You have diabetes, heart disease, kidney problems, or are overweight or have certain other health conditions You have a first-degree relative with high blood pressure You are Black Your blood pressure top number is from 120 to 129 mm Hg, or the bottom number is from 70 to 79 mm Hg If the top number is 130 mm Hg or greater or the bottom number is 80 mm Hg or greater, this is considered stage 1 hypertension. Schedule an appointment with your provider to learn how you can lower your blood pressure. Effects of age on blood pressure CHOLESTEROL SCREENING Cholesterol screening should begin at age 35 for men with no known risk factors for coronary heart disease. Repeat cholesterol screening should take place: Every 5 years for men with normal cholesterol levels More often if changes occur in lifestyle (including weight gain and diet) More often if you have diabetes, heart disease, kidney problems, or certain other conditions COLORECTAL CANCER SCREENING If you are under age 45, talk to your provider about getting screened. You may need to be screened if you have a strong family history of colon cancer or polyps. Screening may also be considered if you have risk factors such as a history of inflammatory bowel disease or polyps. If you are age 45 to 75, you should be screened for colorectal cancer. There are several screening tests available: A stool-based fecal occult blood (gFOBT) or fecal immunochemical test (FIT) every year A stool sDNA test every 1 to 3 years Flexible sigmoidoscopy every 5 years or every 10 years with stool testing FIT done every year CT colonography (virtual colonoscopy) every 5 years Colonoscopy every 10 years You may need a colonoscopy more often if you have risk factors for colorectal cancer, such as: Ulcerative colitis A personal or family history of colorectal cancer A history of growths in your colon called adenomatous polyps DENTAL EXAM Go to the dentist once or twice every year for an exam and cleaning. Your dentist will evaluate if you have a need for more frequent visits. DIABETES SCREENING All adults who do not have risk factors for diabetes should be screened starting at age 35 and repeated every 3 years. If you have other risk factors for diabetes, such as a first degree relative with diabetes, overweight or obesity, high blood pressure, prediabetes, or a history of heart disease, you may be tested more often. If you are overweight and have other risk factors, such as high blood pressure and are planning to become , screening is recommended. EYE EXAM Have an eye exam every 2 to 4 years ages 40 to 54 and every 1 to 3 years ages 55 to 64. Your provider may recommend more frequent eye exams if you have vision problems or glaucoma risk. Have an eye exam that includes an examination of your retina (back of your eye) at least every year if you have diabetes. IMMUNIZATIONS Commonly needed vaccines include: Flu shot: get one every year COVID-19 vaccine: ask your provider what is best for you Tetanus-diphtheria and acellular pertussis (Tdap) vaccine: have as one of your tetanus-diphtheria vaccines if you did not receive it as an adolescent Tetanus-diphtheria: have a booster (or Tdap) every 10 years Varicella vaccine: receive 2 doses if you never had chickenpox or the varicella vaccine and were born in 1980 or after Hepatitis B vaccine: receive 2, 3, or 4 doses, depending on your exact circumstances, if you did not receive these as a child or adolescent, until age 59 Shingles (herpes zoster) vaccine: at or after age 50 Ask your provider if you should receive other immunizations, especially if you have certain medical conditions, such as diabetes or are at increased risk for some diseases such as pneumonia. INFECTIOUS DISEASE SCREENING Screening for hepatitis C: all adults ages 18 to 79 should get a one-time test for hepatitis C. Screening for human immunodeficiency virus (HIV): all people ages 15 to 65 should get a one-time test for HIV. Depending on your lifestyle and medical history, you may need to be screened for infections such as syphilis, chlamydia, and other infections. LUNG CANCER SCREENING You should have an annual screening for lung cancer with low-dose computed tomography (LDCT) if: You are age 50 to 80 years AND You have a 20 pack-year smoking history AND You currently smoke or have quit within the past 15 years OSTEOPOROSIS SCREENING If you are age 50 to 64 and have risk factors for osteoporosis, you should discuss screening with your provider. Risk factors can include long-term steroid use, low body weight, smoking, heavy alcohol use, having a fracture after age 50, or a family history of hip fracture or osteoporosis. Osteoporosis PHYSICAL EXAM All adults should visit their provider from time to time, even if they are healthy. The purpose of these visits is to: Screen for diseases Assess risk of future medical problems Encourage a healthy lifestyle Update vaccinations and other preventive care services Maintain a relationship with a provider in case of an illness Your height, weight, and body mass index (BMI) should be checked at every exam. During your exam, your provider may ask you about: Depression and anxiety Diet and exercise Alcohol and tobacco use Safety, such as use of seat belts and smoke detectors Your medicines and risk for interactions PROSTATE CANCER SCREENING If you're 55 through 69 years old, before having the test, talk to your provider about the pros and cons of having a PSA test. Ask about: Whether screening decreases your chance of dying from prostate cancer. Whether there is any harm from prostate cancer screening, such as side effects from testing or overtreatment of cancer when discovered. Whether you have a higher risk of prostate cancer than others. If you are age 55 or younger, screening is not generally recommended. You should talk with your provider about if you have a higher risk for prostate cancer. Risk factors include: Having a family history of prostate cancer (especially a brother or father) Being If you choose to be tested, the PSA blood test is repeated over time (yearly or less often), though the best frequency is not known. Prostate examinations are no longer routinely done on men with no symptoms. Prostate cancer SKIN EXAM Your provider may check your skin for signs of skin cancer, especially if you're at high risk. People at high risk include those who have had skin cancer before, have close relatives with skin cancer, or have a weakened immune system. TESTICULAR EXAM The [place] Preventive Services Task Force (USPSTF) now recommends against performing testicular self-exams. Doing testicular self-exams has been shown to have little to no benefit.
[2025-02-14 13:16] VITALS: BP 108/68; PULSE 70; RESP 13; TEMP 36.1; O2SAT 97
== END 2025-02-14 13:52 | disposition home or self-care (01) ==
LOC: HO.HMCFM 12:56
PROVIDERS: PCP Nurse Practitioner Family; Visit Provider Nurse Practitioner Family
DX: F33.1 Major depressive disorder, recurrent, moderate (principal); F14.10 Cocaine abuse, uncomplicated; E11.8 Type 2 diabetes mellitus with unspecified complications; Z79.4 Long term (current) use of insulin; E11.29 Type 2 diabetes mellitus with other diabetic kidney complication; E11.3299 Type 2 diabetes mellitus with mild nonproliferative diabetic retinopathy without macular edema, unspecified eye; I69.351 Hemiplegia and hemiparesis following cerebral infarction affecting right dominant side; I63.432 Cerebral infarction due to embolism of left posterior cerebral artery; E11.42 Type 2 diabetes mellitus with diabetic polyneuropathy; I15.2 Hypertension secondary to endocrine disorders; Z71.89 Other specified counseling

== ENCOUNTER → 2025-02-14 12:55 | Outpatient (BNVA) | payer OTHER, SELFPAY | PROVIDERS: PCP Nurse Practitioner Family; Visit Provider Nurse Practitioner Family | DX: Z00.00 Encounter for general adult medical examination without abnormal findings (principal); F33.1 Major depressive disorder, recurrent, moderate; F14.10 Cocaine abuse, uncomplicated; I15.2 Hypertension secondary to endocrine disorders; I25.10 Atherosclerotic heart disease of native coronary artery without angina pectoris; E11.29 Type 2 diabetes mellitus with other diabetic kidney complication; E11.51 Type 2 diabetes mellitus with diabetic peripheral angiopathy without gangrene; E11.3299 Type 2 diabetes mellitus with mild nonproliferative diabetic retinopathy without macular edema, unspecified eye; E11.42 Type 2 diabetes mellitus with diabetic polyneuropathy; R80.9 Proteinuria, unspecified; H35.033 Hypertensive retinopathy, bilateral; D50.9 Iron deficiency anemia, unspecified; I69.391 Dysphagia following cerebral infarction; I69.351 Hemiplegia and hemiparesis following cerebral infarction affecting right dominant side; I69.322 Dysarthria following cerebral infarction; E66.9 Obesity, unspecified; H26.9 Unspecified cataract; Z78.9 Other specified health status; Z71.89 Other specified counseling; Z79.4 Long term (current) use of insulin; Z68.30 Body mass index [BMI] 30.0-30.9, adult | CPT/HCPCS: 99212; 99396 ==